=== PATIENT | female | born 1960 | race Caucasian/White ===

== ENCOUNTER → 2020-12-05 14:32 | Outpatient (BNVA) | payer OTHER, SELFPAY | PROVIDERS: Visit Provider Anesthesiology | DX: M46.1 Sacroiliitis, not elsewhere classified (principal); M79.7 Fibromyalgia; G89.4 Chronic pain syndrome; Z79.891 Long term (current) use of opiate analgesic | CPT/HCPCS: 99202 ==

== ENCOUNTER → 2020-12-26 10:38 | Outpatient (BNVA) | payer OTHER, SELFPAY | PROVIDERS: Visit Provider Anesthesiology | DX: M46.1 Sacroiliitis, not elsewhere classified (principal); M79.7 Fibromyalgia; G89.4 Chronic pain syndrome; Z79.891 Long term (current) use of opiate analgesic | CPT/HCPCS: 99212 ==

== ENCOUNTER → 2021-01-09 09:54 | Outpatient (BNVA) | payer OTHER, SELFPAY | PROVIDERS: Visit Provider Anesthesiology | DX: M46.1 Sacroiliitis, not elsewhere classified (principal); M79.7 Fibromyalgia; G89.4 Chronic pain syndrome; Z79.891 Long term (current) use of opiate analgesic | CPT/HCPCS: 99212 ==

== ENCOUNTER → 2021-02-06 09:10 | Outpatient (BNVA) | payer OTHER, SELFPAY | PROVIDERS: Visit Provider Anesthesiology | DX: M46.1 Sacroiliitis, not elsewhere classified (principal); M79.7 Fibromyalgia; G89.4 Chronic pain syndrome; Z79.891 Long term (current) use of opiate analgesic | CPT/HCPCS: 99212 ==

== ENCOUNTER 2021-02-20 13:00 | Outpatient (RCR) | payer OTHER, SELFPAY | END 2021-06-06 14:57 | disposition home or self-care (01) | LOC: HO.PTWFD 13:00 | PROVIDERS: Visit Provider Anesthesiology | DX: M46.1 Sacroiliitis, not elsewhere classified (principal) | CPT/HCPCS: 97110; 97140; 97161; 97535 ==

== ENCOUNTER → 2021-03-06 09:24 | Outpatient (BNVA) | payer OTHER, SELFPAY | PROVIDERS: Visit Provider Nurse Practitioner Family | DX: M46.1 Sacroiliitis, not elsewhere classified (principal); Z51.81 Encounter for therapeutic drug level monitoring; M79.7 Fibromyalgia; G89.4 Chronic pain syndrome; Z79.891 Long term (current) use of opiate analgesic | CPT/HCPCS: 99212 ==

== ENCOUNTER → 2021-04-09 09:33 | Outpatient (BNVA) | payer OTHER, SELFPAY | PROVIDERS: Visit Provider Anesthesiology | DX: M46.1 Sacroiliitis, not elsewhere classified (principal); M79.7 Fibromyalgia; G89.4 Chronic pain syndrome; Z79.891 Long term (current) use of opiate analgesic | CPT/HCPCS: 99212 ==

== ENCOUNTER → 2021-05-12 08:46 | Outpatient (BNVA) | payer OTHER, SELFPAY | PROVIDERS: Visit Provider Anesthesiology | DX: Z51.81 Encounter for therapeutic drug level monitoring (principal); M46.1 Sacroiliitis, not elsewhere classified; M79.7 Fibromyalgia; G89.4 Chronic pain syndrome; Z79.891 Long term (current) use of opiate analgesic | CPT/HCPCS: 99212 ==

== ENCOUNTER → 2021-06-23 15:37 | Outpatient (BNVA) | payer OTHER, SELFPAY | PROVIDERS: PCP Internal Medicine; Visit Provider Anesthesiology | DX: Z51.81 Encounter for therapeutic drug level monitoring (principal); M46.1 Sacroiliitis, not elsewhere classified; M79.7 Fibromyalgia; G89.4 Chronic pain syndrome; Z79.891 Long term (current) use of opiate analgesic | CPT/HCPCS: 99212 ==

== ENCOUNTER → 2021-07-28 15:20 | Outpatient (BNVA) | payer OTHER, SELFPAY | PROVIDERS: PCP Internal Medicine; Visit Provider Anesthesiology | DX: Z51.81 Encounter for therapeutic drug level monitoring (principal); M79.7 Fibromyalgia; Z79.891 Long term (current) use of opiate analgesic; G89.4 Chronic pain syndrome | CPT/HCPCS: 99212 ==

== ENCOUNTER → 2021-08-25 09:16 | Outpatient (BNVA) | payer OTHER, SELFPAY | PROVIDERS: PCP Internal Medicine; Visit Provider Anesthesiology | DX: Z51.81 Encounter for therapeutic drug level monitoring (principal); F11.20 Opioid dependence, uncomplicated | CPT/HCPCS: 99211 ==

== ENCOUNTER → 2021-09-22 10:11 | Outpatient (BNVA) | payer OTHER, SELFPAY | PROVIDERS: PCP Internal Medicine; Visit Provider Anesthesiology | DX: G89.4 Chronic pain syndrome (principal); M46.1 Sacroiliitis, not elsewhere classified; M79.7 Fibromyalgia; Z79.891 Long term (current) use of opiate analgesic | CPT/HCPCS: 99212 ==

== ENCOUNTER → 2021-10-20 10:16 | Outpatient (BNVA) | payer OTHER, SELFPAY | PROVIDERS: PCP Internal Medicine; Visit Provider Anesthesiology | DX: Z51.81 Encounter for therapeutic drug level monitoring (principal); F11.20 Opioid dependence, uncomplicated; M46.1 Sacroiliitis, not elsewhere classified; M79.7 Fibromyalgia; G89.4 Chronic pain syndrome; Z79.891 Long term (current) use of opiate analgesic | CPT/HCPCS: 99212 ==

== ENCOUNTER → 2021-11-17 09:50 | Outpatient (BNVA) | payer OTHER, SELFPAY | PROVIDERS: PCP Internal Medicine; Visit Provider Anesthesiology | DX: Z51.81 Encounter for therapeutic drug level monitoring (principal); F11.20 Opioid dependence, uncomplicated | CPT/HCPCS: 99211 ==

== ENCOUNTER → 2021-12-15 10:41 | Outpatient (BNVA) | payer OTHER, SELFPAY | PROVIDERS: PCP Internal Medicine; Visit Provider Anesthesiology | DX: Z79.899 Other long term (current) drug therapy (principal) ==

== ENCOUNTER → 2022-01-12 09:21 | Outpatient (BNVA) | payer OTHER, SELFPAY | PROVIDERS: PCP Internal Medicine; Visit Provider Anesthesiology | DX: Z79.891 Long term (current) use of opiate analgesic (principal) | CPT/HCPCS: 99211 ==

== ENCOUNTER → 2022-02-18 09:50 | Outpatient (BNVA) | payer OTHER, SELFPAY | PROVIDERS: PCP Internal Medicine; Visit Provider Anesthesiology | DX: Z51.81 Encounter for therapeutic drug level monitoring (principal); F11.20 Opioid dependence, uncomplicated; M46.1 Sacroiliitis, not elsewhere classified; M79.7 Fibromyalgia; G89.4 Chronic pain syndrome | CPT/HCPCS: 99212 ==

== ENCOUNTER → 2022-03-18 15:51 | Outpatient (BNVA) | payer OTHER, SELFPAY | PROVIDERS: PCP Internal Medicine; Visit Provider Nurse Practitioner Family | DX: Z79.891 Long term (current) use of opiate analgesic (principal) | CPT/HCPCS: 99211 ==

== ENCOUNTER → 2022-04-22 14:22 | Outpatient (BNVA) | payer OTHER, SELFPAY | PROVIDERS: PCP Internal Medicine; Visit Provider Anesthesiology | DX: Z79.891 Long term (current) use of opiate analgesic (principal) | CPT/HCPCS: 99211 ==

== ENCOUNTER → 2022-05-25 09:38 | Outpatient (BNVA) | payer OTHER, SELFPAY | PROVIDERS: PCP Internal Medicine; Visit Provider Anesthesiology | DX: Z51.81 Encounter for therapeutic drug level monitoring (principal); F11.20 Opioid dependence, uncomplicated; M46.1 Sacroiliitis, not elsewhere classified; M79.7 Fibromyalgia; G89.4 Chronic pain syndrome | CPT/HCPCS: 99212 ==

== ENCOUNTER → 2022-06-22 09:56 | Outpatient (BNVA) | payer OTHER, SELFPAY | PROVIDERS: PCP Internal Medicine; Visit Provider Anesthesiology | DX: Z51.81 Encounter for therapeutic drug level monitoring (principal); F11.20 Opioid dependence, uncomplicated | CPT/HCPCS: 99211 ==

== ENCOUNTER → 2022-07-23 09:43 | Outpatient (BNVA) | payer OTHER, SELFPAY | PROVIDERS: PCP Internal Medicine; Visit Provider Anesthesiology | DX: Z13.89 Encounter for screening for other disorder (principal) ==

== ENCOUNTER → 2022-08-24 10:43 | Outpatient (BNVA) | payer OTHER, SELFPAY | PROVIDERS: PCP Internal Medicine; Visit Provider Anesthesiology | DX: Z13.89 Encounter for screening for other disorder (principal) ==

== ENCOUNTER → 2022-09-23 09:31 | Outpatient (BNVA) | payer OTHER, SELFPAY | PROVIDERS: PCP Internal Medicine; Visit Provider Anesthesiology | DX: Z13.89 Encounter for screening for other disorder (principal) ==

== ENCOUNTER 2022-10-20 06:05 | Outpatient (REF) | payer OTHER, SELFPAY ==
--- NOTE | ~2022-10-20 | FL_ITS ---
EXAMINATION: XR FL WITH IMAGES CLINICAL INFORMATION: Chronic pain syndrome. COMPARISON: None available. TECHNIQUE: Fluoroscopy Supervised By: Shannon Barrett. Fluoroscopy Time: 0 minutes. Cumulative Dose: 1.6 mGy. DAP: 0.4 Gycm2. Images: 1. FINDINGS: Images demonstrate needle placement and contrast injection over the inferior right sacroiliac joint. FL/FL guidance in treatment room IMPRESSION: Fluoroscopy guidance for pain management procedure.
== END 2022-10-20 06:06 | disposition home or self-care (01) ==
LOC: CF 06:05
PROVIDERS: Visit Provider Anesthesiology
DX: M46.1 Sacroiliitis, not elsewhere classified (principal); G89.4 Chronic pain syndrome; M79.7 Fibromyalgia; Z79.891 Long term (current) use of opiate analgesic
CPT/HCPCS: 27096; J2795; Q9967

== ENCOUNTER → 2022-10-23 16:04 | Outpatient (BNVA) | payer OTHER, SELFPAY | PROVIDERS: PCP Internal Medicine; Visit Provider Nurse Practitioner Family | DX: Z13.89 Encounter for screening for other disorder (principal) ==

== ENCOUNTER → 2022-11-19 08:48 | Outpatient (BNVA) | payer OTHER, SELFPAY | PROVIDERS: PCP Internal Medicine; Visit Provider Anesthesiology | DX: M46.1 Sacroiliitis, not elsewhere classified (principal); G89.4 Chronic pain syndrome | CPT/HCPCS: 99212 ==

== ENCOUNTER 2022-12-22 06:09 | Outpatient (REF) | payer OTHER, SELFPAY ==
--- NOTE | ~2022-12-22 | FL_ITS ---
EXAMINATION: XR FLUOROSCOPY WITH IMAGES CLINICAL INFORMATION: Sacroiliitis COMPARISON: None available. TECHNIQUE: Fluoroscopy Supervised By: Dr. Stahl. Fluoroscopy Time: 0.1 minute. Cumulative Dose: 0.880 mGy. DAP: 0.0152 Gycm2. Images: 1. FINDINGS: There is a single digital image of right SI joint revealing contrast opacifying the soft tissues. FL/FL guidance in treatment room IMPRESSION: Fluoroscopy guidance was provided to referring physician for pain management.
== END 2022-12-22 06:10 | disposition home or self-care (01) ==
LOC: CF 06:09
PROVIDERS: Visit Provider Anesthesiology
DX: M46.1 Sacroiliitis, not elsewhere classified (principal); G89.4 Chronic pain syndrome
CPT/HCPCS: 27096; J3301

== ENCOUNTER → 2023-01-18 10:48 | Outpatient (BNVA) | payer OTHER, SELFPAY | PROVIDERS: PCP Internal Medicine; Visit Provider Anesthesiology | DX: G89.4 Chronic pain syndrome (principal); M46.1 Sacroiliitis, not elsewhere classified; Z98.890 Other specified postprocedural states | CPT/HCPCS: 99212 ==

== ENCOUNTER → 2023-02-15 09:55 | Outpatient (BNVA) | payer OTHER, SELFPAY | PROVIDERS: PCP Internal Medicine; Visit Provider Anesthesiology | DX: Z51.81 Encounter for therapeutic drug level monitoring (principal); F11.20 Opioid dependence, uncomplicated | CPT/HCPCS: 99211 ==

== ENCOUNTER 2023-03-15 11:25 | Outpatient (AMB) | payer OTHER, SELFPAY ==
--- NOTE | 2023-03-15 11:52 | A.OFFVIS_ITS ---
Intake Vital Signs 03/15/23 12:02 Height 5 ft 3 in Weight 111 lb 6 oz BMI 19.7 BP 126/80 Blood Pressure Location Rt brachial Position Sitting Respiration 16 Pulse 94 Pulse Source Pulse Oximeter Pulse Oximetry (%) 98 Oxygen Delivery Method Room Air Intake Visit Reasons: PILL COUNT Intake Note: patient comes in for pill count. Allergies aspirin Allergy (Verified 03/15/23 12:02) swelling,rash Sulfa (Sulfonamide Antibiotics) Allergy (Verified 03/15/23 12:02) oral swelling tetracycline Allergy (Verified 03/15/23 12:02) severe vomiting HPI HPI Comments History of Present Illness Details Essence is in for the follow-up and pain medication pill count. She reported today with 10 pills in her possession. She supposed to have only 6 pills in her possession. Her pill count is correct. She reports opioid medications help her to remain active perform better activities of daily living. She denies any side effects. She denies constipation. Her medication will be sent on 03/18/2023. Results of sacroiliac joint injection. She reported significant pain relief after the injection but only for several weeks. I discussed with her possibi jfy of treating her pain with sacroiliac joint fusion and sacroiliac joint innervation stimulation. Risks and benefits explained to the patient. She will be thinking about her options. She is a smoker and not ideal candidate for stabilization however she said that she can try to stop smoking On diagnostic sacroiliac joint injection she [id number] pain relief for 2 days with increased daily functioning, better mobility, sleep and social interactions. Patient reports after procedure she was able to complete all chores in her home and clean her house without significant discomfort in her right lower back, buttock and lateral hip. Patient reports no pain during those 2 days with sitting or driving. She reports pain in right SIJ area has returned on . Patient reports she was told during procedure that there was a significant gap in her right SIJ and has discussed SIJ fusion procedure . Patient reports she is working on decreasing amount of cigarettes per day but not ready to quit smoking at this time. We also discussed neuromodulation and therapeutic injections. Patient reports she prefers therapeutic injection at this time. Patient denies any recent cough, cold, infection, fever or other significant changes in medical history since last office visit. Past Procedures: 10/20/22: Right Diagnostic SIJ injection-100% pain relief for [address] Law 09/23/22: Essence is a pleasant 62 year old female who is here here for a pill count. She is supposed to have 36 pills in her possession and she has 38 pills. She denies side effects of the medications she denies constipations. She reports that opioid medications allow her to be more active, perform better activities of daily living, better social interactions. PRIOR: On the MRI of the cervical spine there is not much of a significant changes. On the MRI of the lumbar spine at L4-5 level there is left shifted disc bulge with clumping of the nerves especially exiting L5. On physical exam some symptoms of sacroiliac joint pathology on the right as well as potential piriformis pathology on the right. SI joint fusion was offered to the patient if she will stop smoking. Unfortunately she continues to smoke. Her PHQ score is equal to 4. Her opioid risk addiction score is equal to 7. Her total risk is equal to 11.mild risk for opioid addiction She complains on pain in the neck pain in bilateral lower extremities bilateral upper extremities pain in thoracic spine pain in the lumbar spine pain in the projection of right sacroiliac joint and pain in bilateral knees which limits her mobility prevents her from going up stairs in her house. She was diagnosed in the past with fibromyalgia neuropathy and arthritis she receives multiple medication to treat her pain some of them include Percocet 5 b.i.d. as well as gabapentin 300 b.i.d.. For many years we she was under care of neurologist who was treating her fibromyalgia prescribing her Percocet and continuing gabapentin. In the past she had extensive courses of physical therapy which did not give her any improvement of the pain she had chiropractic manipulations which helped her in some extent and she had massage therapy which was not effective for her. She had 10s unit she reports 10s unit application increase her pain. 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 (current) use of opiate analgesic Neuroma of foot Sacroiliitis Surgical History H/O tubal ligation History of lumpectomy of right breast History of nasal surgery Review of Systems Const All systems reviewed & are unremarkable except as noted in HPI and below ENT Reports Normal hearing present Neuro Reports Normal hearing present and Denies confusion Psych Denies confusion Physical Exam Vital Signs: Last Vital Signs Pulse 94 03/15/23 12:02 Resp 16 03/15/23 12:02 BP 126/80 03/15/23 12:02 Pulse Ox 98 03/15/23 12:02 Oxygen Delivery Method Room Air 03/15/23 12:02 BMI result Body Mass Index 19.7 Const General: cooperative, alert and awake; No confusion Orientation/consciousness: patient oriented x3 and No confusion Resp Effort & Inspection: able to speak in complete sentences, no audible wheezes and no cough Back/Spine/Pelvis Other: Positive Stinchfield, positive Steve, positive pelvic compression test. On the right. Neuro General: patient oriented x3 and No confusion Cranial nerves: Yes Normal hearing present Cognition (Neuro): normal cognition Psych Mental Status: mental status grossly normal Speech and movement: Clear speech present Affect: normal affect Attitude: cooperative Thought process: Normal thought process present Thought content: Normal thought content present and No Depressive thoughts present Insight: Good insight present (Psych) Judgement: Good judgement present (Psych) Assessment & Plan Assessment & Plan (1) Chronic pain syndrome: Code(s): G89.4 - Chronic pain syndrome (2) Sacroiliitis: Code(s): M46.1 - Sacroiliitis, not elsewhere classified Plan Patient is status post Right therapeutic SIJ injection which alleviated her pain for couple of weeks. 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 Diagnostic sacroiliac joint injection on the right was performed on on 10/20/22 with 100% pain relief for 2 days with increased daily functioning, better mobility, sleep and social interactions. We reviewed right SIJ fusion, neuromodulation with Stim trial, and SIJ RFA as well as therapeutic injections. Unfortunately, patient continues to smoke, attempts to decrease daily amount of cigarettes but not ready to stop smoking. She is here on pill count and her pill count is correct. I will renew her medications as below . We will see her in 1 month. She is working on quitting smoking. SI joint fusion and SI joint stimulation were discussed. Medications: Refilled oxycodone-acetaminophen 5-325 mg (Percocet) Partial Fill upon patient request. 1 tab PO BID PRN 60 tabs 0RF pain (scale score 7-10) 30 days Coding Level of Care Code Est Pt Level 3 (96176) Diagnoses Chronic pain syndrome G89.4 Sacroiliitis M46.1
[2023-03-15 12:02] VITALS: BP 126/80; PULSE 94; RESP 16; O2SAT 98; BMI 19.7
== END 2023-03-15 12:16 | disposition home or self-care (01) ==
PROVIDERS: PCP Internal Medicine; Visit Provider Anesthesiology
DX: G89.4 Chronic pain syndrome (principal); M46.1 Sacroiliitis, not elsewhere classified
CPT/HCPCS: 99213

== ENCOUNTER → 2023-03-15 11:25 | Outpatient (BNVA) | payer OTHER, SELFPAY | PROVIDERS: PCP Internal Medicine; Visit Provider Anesthesiology | DX: G89.4 Chronic pain syndrome (principal); M46.1 Sacroiliitis, not elsewhere classified; M79.7 Fibromyalgia; Z79.891 Long term (current) use of opiate analgesic | CPT/HCPCS: 99212 ==

== ENCOUNTER 2023-04-12 10:42 | Outpatient (AMB) | payer OTHER, SELFPAY ==
--- NOTE | 2023-04-12 10:59 | A.OFFVIS_ITS ---
Intake Vital Signs 04/12/23 11:03 Height 5 ft 3 in Weight 113 lb BMI 20.0 BP 120/84 Blood Pressure Location Rt brachial Position Sitting Respiration 16 Pulse 102 H Pulse Source Pulse Oximeter Pulse Oximetry (%) 96 Oxygen Delivery Method Room Air Intake Visit Reasons: Pill count Intake Note: patient comes in for pill count to oxycodone-acetaminophen. Allergies aspirin Allergy (Verified 04/12/23 11:04) swelling,rash Sulfa (Sulfonamide Antibiotics) Allergy (Verified 04/12/23 11:04) oral swelling tetracycline Allergy (Verified 04/12/23 11:04) severe vomiting HPI HPI Comments History of Present Illness Details Essence is in for the follow-up and pain medication pill count. She reported today with 16 pills in her possession. She supposed to have only 12 pills in her possession. Her pill count is correct. She reports opioid medications help her to remain active perform better activities of daily living. She denies any side effects. She denies constipation, she reports oatmeal helps her best with the constipation. On diagnostic sacroiliac joint injection she [id number] pain relief for 2 days with increased daily functioning, better mobility, sleep and social interactions. Patient reports after procedure she was able to complete all chores in her home and clean her house without significant discomfort in her right lower back, buttock and lateral hip. Patient reports no pain during those 2 days with sitting or driving. She reports pain in right SIJ area has returned on . Patient reports she was told during procedure that there was a significant gap in her right SIJ and has discussed SIJ fusion procedure . Patient reports she is working on decreasing amount of cigarettes per day but not ready to quit smoking at this time. We also discussed neuromodulation and therapeutic injections. Patient reports she prefers therapeutic injection at this time. Patient denies any recent cough, cold, infection, fever or other significant changes in medical history since last office visit. Past Procedures: 10/20/22: Right Diagnostic SIJ injection -100% pain relief for [address] Law 09/23/22: Essence is a pleasant 62 year old female who is here here for a pill count. She is supposed to have 36 pills in her possession and she has 38 pills. She denies side effects of the medications she denies constipations. She reports that opioid medications allow her to be more active, perform better activities of daily living, better social interactions. PRIOR: On the MRI of the cervical spine there is not much of a significant changes. On the MRI of the lumbar spine at L4-5 level there is left shifted disc bulge with clumping of the nerves especially exiting L5. On physical exam some symptoms of sacroiliac joint pathology on the right as well as potential piriformis pathology on the right. SI joint fusion was offered to the patient if she will stop smoking. Unfortunately she continues to smoke. Her PHQ score is equal to 4. Her opioid risk addiction score is equal to 7. Her total risk is equal to 11.mild risk for opioid addiction She complains on pain in the neck pain in bilateral lower extremities bilateral upper extremities pain in thoracic spine pain in the lumbar spine pain in the projection of right sacroiliac joint and pain in bilateral knees which limits her mobility prevents her from going up stairs in her house. She was diagnosed in the past with fibromyalgia neuropathy and arthritis she receives multiple medication to treat her pain some of them include Percocet 5 b.i.d. as well as gabapentin 300 b.i.d.. For many years we she was under care of neurologist who was treating her fibromyalgia prescribing her Percocet and continuing gabapentin. In the past she had extensive courses of physical therapy which did not give her any improvement of the pain she had chiropractic manipulations which helped her in some extent and she had massage therapy which was not effective for her. She had 10s unit she reports 10s unit application increase her pain. She was on Soma medication in the past [facility] Medical History Allergy to mold Chronic pain syndrome Environmental and seasonal allergies Fibromyalgia correction (current) use of opiate analgesic Neuroma of foot Sacroiliitis Surgical History H/O tubal ligation History of lumpectomy of right breast History of nasal surgery Review of Systems Const All systems reviewed & are unremarkable except as noted in HPI and below ENT Reports Normal hearing present Neuro Reports Normal hearing present and Denies confusion Psych Denies confusion Physical Exam Vital Signs: Last Vital Signs Pulse 102 H 04/12/23 11:03 Resp 16 04/12/23 11:03 BP 120/84 04/12/23 11:03 Pulse Ox 96 04/12/23 11:03 Oxygen Delivery Method Room Air 04/12/23 11:03 BMI result Body Mass Index 20.0 Const General: cooperative, alert and awake; No confusion Orientation/consciousness: patient oriented x3 and No confusion Resp Effort & Inspection: able to speak in complete sentences, no audible wheezes and no cough Back/Spine/Pelvis Other: Positive Stinchfield, positive Steve, positive pelvic compression test. On the right. Neuro General: patient oriented x3 and No confusion Cranial nerves: Yes Normal hearing present Cognition (Neuro): normal cognition Psych Mental Status: mental status grossly normal Speech and movement: Clear speech present Affect: normal affect Attitude: cooperative Thought process: Normal thought process present Thought content: Normal thought content present and No Depressive thoughts present Insight: Good insight present (Psych) Judgement: Good judgement present (Psych) Assessment & Plan Assessment & Plan (1) Chronic pain syndrome: Code(s): G89.4 - Chronic pain syndrome (2) Sacroiliitis: Code(s): M46.1 - Sacroiliitis, not elsewhere classified Plan Patient is status post Right therapeutic SIJ injection which alleviated her pain for couple of weeks. 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 Diagnostic sacroiliac joint injection on the right was performed on on 10/20/22 with 100% pain relief for 2 days with increased daily functioning, better mobility, sleep and social interactions. In the past right SIJ fusion, neuromodulation with Stim trial, and SIJ RFA as well as therapeutic injections was offered to the patient. Unfortunately, patient continues to smoke, attempts to decrease daily amount of cigarettes but not ready to stop smoking. She is here on pill count and her pill count is correct. She is compliant with her opioid regimen. We will see her in 1 month. She is working on quitting smoking. SI joint fusion and SI joint stimulation were discussed. Medications: Refilled oxycodone-acetaminophen 5-325 mg (Percocet) Partial Fill upon patient request. 1 tab PO BID PRN 60 tabs 0RF pain (scale score 7-10) 30 days Coding Level of Care Code Est Pt Level 3 (29371) Diagnoses Chronic pain syndrome G89.4 Sacroiliitis M46.1
[2023-04-12 11:03] VITALS: BP 120/84; PULSE 102; RESP 16; O2SAT 96
== END 2023-04-12 11:26 | disposition home or self-care (01) ==
PROVIDERS: PCP Internal Medicine; Visit Provider Anesthesiology
DX: G89.4 Chronic pain syndrome (principal); M46.1 Sacroiliitis, not elsewhere classified
CPT/HCPCS: 99213

== ENCOUNTER → 2023-04-12 10:42 | Outpatient (BNVA) | payer OTHER, SELFPAY | PROVIDERS: PCP Internal Medicine; Visit Provider Anesthesiology | DX: Z51.81 Encounter for therapeutic drug level monitoring (principal); F10.20 Alcohol dependence, uncomplicated; F11.20 Opioid dependence, uncomplicated; M46.1 Sacroiliitis, not elsewhere classified; G89.4 Chronic pain syndrome | CPT/HCPCS: 99212 ==

== ENCOUNTER 2023-05-10 09:39 | Outpatient (AMB) | payer OTHER, SELFPAY ==
--- NOTE | 2023-05-10 09:57 | MHC.OFFVIS ---
Intake Vital Signs 05/10/23 09:59 Height 5 ft 3 in Weight 111 lb 4 oz BMI 19.7 BP 136/88 Blood Pressure Location Rt brachial Position Sitting Respiration 16 Pulse 100 Pulse Source Pulse Oximeter Pulse Oximetry (%) 95 Oxygen Delivery Method Room Air Intake Visit Reasons: PILL COUNT Intake Note: Patient comes in for pill count to oxycodone-acetaminophen tablets. Allergies aspirin Allergy (Verified 05/10/23 09:59) swelling,rash Sulfa (Sulfonamide Antibiotics) Allergy (Verified 05/10/23 09:59) oral swelling tetracycline Allergy (Verified 05/10/23 09:59) severe vomiting HPI HPI Comments History of Present Illness Details Essence is in for the follow-up and pain medication pill count. She reported today with 21 pills in her possession. She supposed to have only 18 pills in her possession. Her pill count is correct. She reports opioid medications help her to remain active perform better activities of daily living. She denies any side effects. She denies constipation, she reports oatmeal helps her best with the constipation. On diagnostic sacroiliac joint injection she [id number] pain relief for 2 days with increased daily functioning, better mobility, sleep and social interactions. Patient reports after procedure she was able to complete all chores in her home and clean her house without significant discomfort in her right lower back, buttock and lateral hip. Patient reports no pain during those 2 days with sitting or driving. She reports pain in right SIJ area has returned on . Patient reports she was told during procedure that there was a significant gap in her right SIJ and has discussed SIJ fusion procedure . Patient continues to smoke and upper candidate for SI joint stabilization and fusion. However I offered her pain S stim wave for the sacroiliac joints on the right, she needs to go for psychological evaluation. SI joint stimulation was explained to her today Past Procedures: 10/20/22: Right Diagnostic SIJ injection-100% pain relief for 2 days. Prior: On the MRI of the cervical spine there is not much of a significant changes. On the MRI of the lumbar spine at L4-5 level there is left shifted disc bulge with clumping of the nerves especially exiting L5. On physical exam some symptoms of sacroiliac joint pathology on the right as well as potential piriformis pathology on the right. SI joint fusion was offered to the patient if she will stop smoking. Unfortunately she continues to smoke. Her PHQ score is equal to 4. Her opioid risk addiction score is equal to 7. Her total risk is equal to 11.mild risk for opioid addiction She complains on pain in the neck pain in bilateral lower extremities bilateral upper extremities pain in thoracic spine pain in the lumbar spine pain in the projection of right sacroiliac joint and pain in bilateral knees which limits her mobility prevents her from going up stairs in her house. She was diagnosed in the past with fibromyalgia neuropathy and arthritis she receives multiple medication to treat her pain some of them include Percocet 5 b.i.d. as well as gabapentin 300 b.i.d.. For many years we she was under care of neurologist who was treating her fibromyalgia prescribing her Percocet and continuing gabapentin. In the past she had extensive courses of physical therapy which did not give her any improvement of the pain she had chiropractic manipulations which helped her in some extent and she had massage therapy which was not effective for her. She had 10s unit she reports 10s unit application increase her pain. 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 Neuroma of foot Sacroiliitis Surgical History H/O tubal ligation History of lumpectomy of right breast History of nasal surgery Review of Systems Const All systems reviewed & are unremarkable except as noted in HPI and below ENT Reports Normal hearing present Neuro Reports Normal hearing present and Denies confusion Psych Denies confusion Physical Exam Vital Signs: Last Vital Signs Pulse 100 05/10/23 09:59 Resp 16 05/10/23 09:59 BP 136/88 05/10/23 09:59 Pulse Ox 95 05/10/23 09:59 Oxygen Delivery Method Room Air 05/10/23 09:59 BMI result Body Mass Index 19.7 Const General: cooperative, alert and awake; No confusion Orientation/consciousness: patient oriented x3 and No confusion Resp Effort & Inspection: able to speak in complete sentences, no audible wheezes and no cough Back/Spine/Pelvis Other: Positive Stinchfield, positive Steve, positive pelvic compression test. On the right. Neuro General: patient oriented x3 and No confusion Cranial nerves: Yes Normal hearing present Cognition (Neuro): normal cognition Psych Mental Status: mental status grossly normal Speech and movement: Clear speech present Affect: normal affect Attitude: cooperative Thought process: Normal thought process present Thought content: Normal thought content present and No Depressive thoughts present Insight: Good insight present (Psych) Judgement: Good judgement present (Psych) Assessment & Plan Assessment & Plan (1) Chronic pain syndrome: Code(s): G89.4 - Chronic pain syndrome (2) Sacroiliitis: Code(s): M46.1 - Sacroiliitis, not elsewhere classified Plan Patient is status post Right therapeutic SIJ injection which alleviated her pain for couple of weeks. 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 Diagnostic sacroiliac joint injection on the right was performed on on 10/20/22 with 100% pain relief for 2 days with increased daily functioning, better mobility, sleep and social interactions. In the past right SIJ fusion, neuromodulation with Stim trial, and SIJ RFA as well as therapeutic injections was offered to the patient. Unfortunately, patient continues to smoke, attempts to decrease daily amount of cigarettes but not ready to stop smoking. She is here on pill count and her pill count is correct. She is compliant with her opioid regimen. I will see her in 1 month. She is still smoking significant amount of cigarettes. SI joint fusion therefore is a poor option for her. I offered her PNS stimwave/curonics, she agreed to go for psychological evaluation. She lives alone and the definitive procedure may be delayed until the next spring when snow is no longer needed to be cleaned out however we would have to start psych eval now in we may even go for trial to see if this will help her. The trial will be right SI joint innervation stimulation. I will renew her opioid medications today there due on 05/19/2023. Next appointment in 1 month. Medications: Refilled oxycodone-acetaminophen 5-325 mg (Percocet) Partial Fill upon patient request. 1 tab PO BID PRN 60 tabs 0RF pain (scale score 7-10) 30 days Coding Level of Care Code Est Pt Level 4 (22138) Diagnoses Chronic pain syndrome G89.4 Sacroiliitis M46.1
[2023-05-10 09:59] VITALS: BP 136/88; PULSE 100; RESP 16; O2SAT 95; BMI 19.7
== END 2023-05-10 10:11 | disposition home or self-care (01) ==
PROVIDERS: PCP Internal Medicine; Visit Provider Anesthesiology
DX: G89.4 Chronic pain syndrome (principal); M46.1 Sacroiliitis, not elsewhere classified; Z79.891 Long term (current) use of opiate analgesic
CPT/HCPCS: 99214

== ENCOUNTER → 2023-05-10 09:39 | Outpatient (BNVA) | payer OTHER, SELFPAY | PROVIDERS: PCP Internal Medicine; Visit Provider Anesthesiology | DX: M46.1 Sacroiliitis, not elsewhere classified (principal); G89.4 Chronic pain syndrome | CPT/HCPCS: 99212 ==

== ENCOUNTER → 2023-06-07 09:41 | Outpatient (BNVA) | payer OTHER, SELFPAY | PROVIDERS: PCP Internal Medicine; Visit Provider Anesthesiology ==

== ENCOUNTER 2023-07-05 09:44 | Outpatient (AMB) | payer OTHER, SELFPAY ==
--- NOTE | 2023-07-05 09:53 | A.OFFVIS_ITS ---
Intake Vital Signs 07/05/23 10:09 Height 5 ft 3 in Weight 106 lb 6 oz BMI 18.8 BP 140/78 H Blood Pressure Location Lt brachial Position Sitting Respiration 14 Pulse 69 Pulse Source Pulse Oximeter Pulse Oximetry (%) 96 Oxygen Delivery Method Room Air Intake Visit Reasons: Medication Count/confirmed Intake Note: Patient comes in for pill count to oxycodone -acetaminophen 5mg-325 mg tablets. Allergies aspirin Allergy (Verified 07/05/23 10:10) swelling,rash Sulfa (Sulfonamide Antibiotics) Allergy (Verified 07/05/23 10:10) oral swelling tetracycline Allergy (Verified 07/05/23 10:10) severe vomiting HPI HPI Comments History of Present Illness Details Essence is in for the follow-up and pain medication pill count. She reported today with 36 pills in her possession. She supposed to have only 32 pills in her possession. Her pill count is correct. She reports opioid medications help her to remain active perform better activities of daily living. She denies any side effects. She reports diarrhea today at its probably some sort of acute her hands. On diagnostic sacroiliac joint injection she [id number] pain relief for 2 days with increased daily functioning, better mobility, sleep and social interactions. Patient reports after procedure she was able to complete all chores in her home and clean her house without significant discomfort in her right lower back, buttock and lateral hip. Patient reports no pain during those 2 days with sitting or driving. She reports pain in right SIJ area has returned on . Patient reports she was told during procedure that there was a significant gap in her right SIJ and has discussed SIJ fusion procedure . Patient continues to smoke and upper candidate for SI joint stabilization and fusion. However I offered her pain S stim wave for the sacroiliac joints on the right, she needs to go for psychological evaluation. SI joint stimulation was explained to her today Past Procedures: 10/20/22: Right Diagnostic SIJ injection -100% pain relief for 2 days. Prior: On the MRI of the cervical spine there is not much of a significant changes. On the MRI of the lumbar spine at L4-5 level there is left shifted disc bulge with clumping of the nerves especially exiting L5. On physical exam some symptoms of sacroiliac joint pathology on the right as well as potential piriformis pathology on the right. SI joint fusion was offered to the patient if she will stop smoking. Unfortunately she continues to smoke. Her PHQ score is equal to 4. Her opioid risk addiction score is equal to 7. Her total risk is equal to 11.mild risk for opioid addiction She complains on pain in the neck pain in bilateral lower extremities bilateral upper extremities pain in thoracic spine pain in the lumbar spine pain in the projection of right sacroiliac joint and pain in bilateral knees which limits her mobility prevents her from going up stairs in her house. She was diagnosed in the past with fibromyalgia neuropathy and arthritis she receives multiple medication to treat her pain some of them include Percocet 5 b.i.d. as well as gabapentin 300 b.i.d.. For many years we she was under care of neurologist who was treating her fibromyalgia prescribing her Percocet and continuing gabapentin. In the past she had extensive courses of physical therapy which did not give her any improvement of the pain she had chiropractic manipulations which helped her in some extent and she had massage therapy which was not effective for her. She had 10s unit she reports 10s unit application increase her pain. She was on Soma medication in the past [facility] Medical History Allergy to mold Chronic pain syndrome Environmental and seasonal allergies Fibromyalgia care home (current) use of opiate analgesic Neuroma of foot Sacroiliitis Surgical History H/O tubal ligation History of lumpectomy of right breast History of nasal surgery Review of Systems Const All systems reviewed & are unremarkable except as noted in HPI and below ENT Reports Normal hearing present Neuro Reports Normal hearing present and Denies confusion Psych Denies confusion Physical Exam Const General: cooperative, alert and awake; No confusion Orientation/consciousness: patient oriented x3 and No confusion Resp Effort & Inspection: able to speak in complete sentences, no audible wheezes and no cough Back/Spine/Pelvis Other: Positive Stinchfield, positive Steve, positive pelvic compression test. On the right. Neuro General: patient oriented x3 and No confusion Cranial nerves: Yes Normal hearing present Cognition (Neuro): normal cognition Psych Mental Status: mental status grossly normal Speech and movement: Clear speech present Affect: normal affect Attitude: cooperative Thought process: Normal thought process present Thought content: Normal thought content present and No Depressive thoughts present Insight: Good insight present (Psych) Judgement: Good judgement present (Psych) Assessment & Plan Assessment & Plan (1) Chronic pain syndrome: Code(s): G89.4 - Chronic pain syndrome (2) Sacroiliitis: Code(s): M46.1 - Sacroiliitis, not elsewhere classified Plan Patient is status post Right therapeutic SIJ injection which alleviated her pain for couple of weeks. 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 Diagnostic sacroiliac joint injection on the right was performed on on 10/20/22 with 100% pain relief for 2 days with increased daily functioning, better mobility, sleep and social interactions. In the past right SIJ fusion, neuromodulation with Stim trial, and SIJ RFA as well as therapeutic injections was offered to the patient. Unfortunately, patient continues to smoke, attempts to decrease daily amount of cigarettes but not re leslie to stop smoking. I will see her in 1 month. She is still smoking significant amount of cigarettes. SI joint fusion therefore is a poor option for her. I offered her PNS stimwave/curonics, she agreed to go for psychological evaluation. She lives alone and the definitive procedure may be delayed until the next spring when snow is no longer needed to be cleaned out however we would have to start psych eval now in we may even go for trial to see if this will help her. The trial will be right SI joint innervation stimulation. I will renew her opioid medications today there due on 07/20/2023. Next appointment in 1 month. Medications: Refilled oxycodone-acetaminophen 5-325 mg (Percocet) Partial Fill upon patient request. 1 tab PO BID 30 days PRN 60 tabs 0RF pain (scale score 7-10) Coding Level of Care Code Est Pt Level 3 (45297) Diagnoses Chronic pain syndrome G89.4 Sacroiliitis M46.1
[2023-07-05 10:09] VITALS: BP 140/78; PULSE 69; RESP 14; O2SAT 96; BMI 18.8
== END 2023-07-05 10:10 | disposition home or self-care (01) ==
PROVIDERS: PCP Internal Medicine; Visit Provider Anesthesiology
DX: G89.4 Chronic pain syndrome (principal); M46.1 Sacroiliitis, not elsewhere classified; Z79.891 Long term (current) use of opiate analgesic
CPT/HCPCS: 99213

== ENCOUNTER → 2023-07-05 09:44 | Outpatient (BNVA) | payer OTHER, SELFPAY | PROVIDERS: PCP Internal Medicine; Visit Provider Anesthesiology | DX: Z51.81 Encounter for therapeutic drug level monitoring (principal); F11.20 Opioid dependence, uncomplicated; M46.1 Sacroiliitis, not elsewhere classified; G89.4 Chronic pain syndrome | CPT/HCPCS: 99212 ==

== ENCOUNTER 2023-08-04 09:45 | Outpatient (AMB) | payer OTHER, SELFPAY ==
--- NOTE | 2023-08-04 09:53 | A.OFFVIS_ITS ---
Intake Vital Signs 08/04/23 10:09 Height 5 ft 3 in Weight 107 lb 8 oz BMI 19.0 BP 156/80 H Blood Pressure Location Lt brachial Position Sitting Respiration 16 Pulse 95 Pulse Source Pulse Oximeter Pulse Oximetry (%) 99 Oxygen Delivery Method Room Air Intake Visit Reasons: Medication Count/lvm Intake Note: Patient comes in for pill count to oxycodone-acetaminophen 5mg - 325mg tablets. Allergies aspirin Allergy (Verified 08/04/23 10:13) swelling,rash Sulfa (Sulfonamide Antibiotics) Allergy (Verified 08/04/23 10:13) oral swelling tetracycline Allergy (Verified 08/04/23 10:13) severe vomiting HPI HPI Comments History of Present Illness Details Essence is in for the follow-up and pain medication pill count. She reported today with 35 pills in her possession. She supposed to have only 30 pills in her possession. Her pill count is correct. She reports opioid medications help her to remain active perform better activities of daily living. She denies any side effects. She did not start her psychological evaluation yet. We will be waiting until the end of the winter. The rest of the plans are as above. Prior: On diagnostic sacroiliac joint injection she [id number] pain relief for 2 days with increased daily functioning, better mobility, sleep and social interactions. Patient reports after procedure she was able to complete all chores in her home and clean her house without significant discomfort in her right lower back, buttock and lateral hip. Patient reports no pain during those 2 days with sitting or driving. She reports pain in right SIJ area has returned on . Patient reports she was told during procedure that there was a significant gap in her right SIJ and has discussed SIJ fusion procedure . Yuly akbar continues to smoke and upper candidate for SI joint stabilization and fusion. However I offered her pain S stim wave for the sacroiliac joints on the right, she needs to go for psychological evaluation. SI joint stimulation was explained to her today Past Procedures: 10/20/22: Right Diagnostic SIJ injection -100% pain relief for 2 days. Prior: On the MRI of the cervical spine there is not much of a significant changes. On the MRI of the lumbar spine at L4-5 level there is left shifted disc bulge with clumping of the nerves especially exiting L5. On physical exam some symptoms of sacroiliac joint pathology on the right as well as potential piriformis pathology on the right. SI joint fusion was offered to the patient if she will stop smoking. Unfortunately she continues to smoke. Her PHQ score is equal to 4. Her opioid risk addiction score is equal to 7. Her total risk is equal to 11.mild risk for opioid addiction She complains on pain in the neck pain in bilateral lower extremities bilateral upper extremities pain in thoracic spine pain in the lumbar spine pain in the projection of right sacroiliac joint and pain in bilateral knees which limits her mobility prevents her from going up stairs in her house. She was diagnosed in the past with fibromyalgia neuropathy and arthritis she receives multiple medication to treat her pain some of them include Percocet 5 b.i.d. as well as gabapentin 300 b.i.d.. For many years we she was under care of neurologist who was treating her fibromyalgia prescribing her Percocet and continuing gabapentin. In the past she had extensive courses of physical therapy which did not give her any improvement of the pain she had chiropractic manipulations which helped her in some extent and she had massage therapy which was not effective for her. She had 10s unit she reports 10s unit application increase her pain. She was on Soma medication in the past [facility] Medical History Allergy to mold Chronic pain syndrome Environmental and seasonal allergies Fibromyalgia emt intermediate (current) use of opiate analgesic Neuroma of foot Sacroiliitis Surgical History H/O tubal ligation History of lumpectomy of right breast History of nasal surgery Review of Systems Const All systems reviewed & are unremarkable except as noted in HPI and below ENT Reports Normal hearing present Neuro Reports Normal hearing present and Denies confusion Psych Denies confusion Physical Exam Const General: cooperative, alert and awake; No confusion Orientation/consciousness: patient oriented x3 and No confusion Resp Effort & Inspection: able to speak in complete sentences, no audible wheezes and no cough Back/Spine/Pelvis Other: Positive Stinchfield, positive Steve, positive pelvic compression test. On the right. Neuro General: patient oriented x3 and No confusion Cranial nerves: Yes Normal hearing present Cognition (Neuro): normal cognition Psych Mental Status: mental status grossly normal Speech and movement: Clear speech present Affect: normal affect Attitude: cooperative Thought process: Normal thought process present Thought content: Normal thought content present and No Depressive thoughts present Insight: Good insight present (Psych) Judgement: Good judgement present (Psych) Assessment & Plan Assessment & Plan (1) Chronic pain syndrome: Code(s): G89.4 - Chronic pain syndrome (2) Sacroiliitis: Code(s): M46.1 - Sacroiliitis, not elsewhere classified Plan Patient is status post Right therapeutic SIJ injection which alleviated her pain for couple of weeks. 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 Diagnostic sacroiliac joint injection on the right was performed on on 10/20/22 with 100% pain relief for 2 days with increased daily functioning, better mobility, sleep and social interactions. In the past right SIJ fusion, neuromodulation with Stim trial, and SIJ RFA as well as therapeutic injections was offered to the patient. Unfortunately, patient continues to smoke, attempts to decrease daily amount of cigarettes but not ready to stop smoking. I will see her in 1 month. She is still smoking significant amount of cigarettes. For PNS stimwave/curonics, she agreed to go for psychological evaluation. She lives alone and the definitive procedure may be delayed until Spring when snow is no longer needed to be cleaned out . She will ask a colleague psychologist for a clearance for the trial instead of waiting. The trial will be right SI joint innervation stimulation. I will renew her opioid medications today there due on 08/19/2022 Next appointment in 1 month. Medications: Refilled oxycodone-acetaminophen 5-325 mg (Percocet) Partial Fill upon patient request. 1 tab PO BID PRN 60 tabs 0RF pain (scale score 7-10) 30 days Coding Level of Care Code Est Pt Level 3 (93236) Diagnoses Chronic pain syndrome G89.4 Sacroiliitis M46.1
[2023-08-04 10:09] VITALS: BP 156/80; PULSE 95; RESP 16; O2SAT 99; BMI 19.0
== END 2023-08-04 10:14 | disposition home or self-care (01) ==
PROVIDERS: PCP Internal Medicine; Visit Provider Anesthesiology
DX: G89.4 Chronic pain syndrome (principal); M46.1 Sacroiliitis, not elsewhere classified
CPT/HCPCS: 99213

== ENCOUNTER → 2023-08-04 09:45 | Outpatient (BNVA) | payer OTHER, SELFPAY | PROVIDERS: PCP Internal Medicine; Visit Provider Anesthesiology | DX: Z51.81 Encounter for therapeutic drug level monitoring (principal); F11.20 Opioid dependence, uncomplicated; M46.1 Sacroiliitis, not elsewhere classified; G89.4 Chronic pain syndrome | CPT/HCPCS: 99212 ==

== ENCOUNTER 2023-09-01 09:44 | Outpatient (AMB) | payer OTHER, SELFPAY ==
--- NOTE | 2023-09-01 09:46 | MHC.OFFVIS ---
Intake Vital Signs 09/01/23 10:02 Height 5 ft 3 in Weight 107 lb BMI 19.0 BP 142/77 H Blood Pressure Location Lt brachial Position Sitting Respiration 12 Pulse 71 Pulse Source Pulse Oximeter Pulse Oximetry (%) 97 Oxygen Delivery Method Room Air Intake Visit Reasons: Medication Count/lvm Intake Note: Patient comes in for pill count to Oxycodone- acetaminophen 5mg-325 mg tablets. Reports pain 6/10. Allergies aspirin Allergy (Verified 08/04/23 10:13) swelling,rash Sulfa (Sulfonamide Antibiotics) Allergy (Verified 08/04/23 10:13) oral swelling tetracycline Allergy (Verified 08/04/23 10:13) severe vomiting HPI HPI Comments History of Present Illness Details Essence is in for the follow-up and pain medication pill count. She reported today with 36 pills in her possession. She supposed to have only 34 pills in her possession. Her pill count is correct. She reports opioid medications help her to remain active perform better activities of daily living. She denies any side effects. She reports today that she does not have Narcan at home. I told her that we will prescribe her Narcan today. She reports her pain level today slightly elevated to 6/10. She reports that overall she is comfortable. She did not start her psychological evaluation yet. We will be waiting until the end of the winter. We will be planning SI joint innervation stimulation for her at that time. Prior: On diagnostic sacroiliac joint injection she % pain relief for 2 days with increased daily functioning, better mobility, sleep and social interactions. Patient reports after procedure she was able to complete all chores in her home and clean her house without significant discomfort in her right lower back, buttock and lateral hip. Patient reports no pain during those 2 days with sitting or driving. She reports pain in right SIJ area has returned on . Patient reports she was told during procedure that there was a significant gap in her right SIJ and has discussed SIJ fusion procedure . Patient continues to smoke and upper candidate for SI joint stabilization and fusion. However I offered her pain S stim wave for the sacroiliac joints on the right, she needs to go for psychological evaluation. SI joint stimulation was explained to her today Past Procedures: 10/20/22: Right Diagnostic SIJ injection-100% pain relief for 2 days. Prior: On the MRI of the cervical spine there is not much of a significant changes. On the MRI of the lumbar spine at L4-5 level there is left shifted disc bulge with clumping of the nerves especially exiting L5. On physical exam some symptoms of sacroiliac joint pathology on the right as well as potential piriformis pathology on the right. SI joint fusion was offered to the patient if she will stop smoking. Unfortunately she continues to smoke. Her PHQ score is equal to 4. Her opioid risk addiction score is equal to 7. Her total risk is equal to 11.mild risk for opioid addiction She complains on pain in the neck pain in bilateral lower extremities bilateral upper extremities pain in thoracic spine pain in the lumbar spine pain in the projection of right sacroiliac joint and pain in bilateral knees which limits her mobility prevents her from going up stairs in her house. She was diagnosed in the past with fibromyalgia neuropathy and arthritis she receives multiple medication to treat her pain some of them include Percocet 5 b.i.d. as well as gabapentin 300 b.i.d.. For many years we she was under care of neurologist who was treating her fibromyalgia prescribing her Percocet and continuing gabapentin. In the past she had extensive courses of physical therapy which did not give her any improvement of the pain she had chiropractic manipulations which helped her in some extent and she had massage therapy which was not effective for her. She had 10s unit she reports 10s unit application increase her pain. She was on Soma medication in the past [facility] Medical History Allergy to mold Chronic pain syndrome Environmental and seasonal allergies Fibromyalgia long-term (current) use of opiate analgesic Neuroma of foot Sacroiliitis Surgical History H/O tubal ligation History of lumpectomy of right breast History of nasal surgery Review of Systems Const All systems reviewed & are unremarkable except as noted in HPI and below ENT Reports Normal hearing present Neuro Reports Normal hearing present and Denies confusion Psych Denies confusion Physical Exam Vital Signs: Last Vital Signs Pulse 71 09/01/23 10:02 Resp 12 09/01/23 10:02 BP 142/77 H 09/01/23 10:02 Pulse Ox 97 09/01/23 10:02 Oxygen Delivery Method Room Air 09/01/23 10:02 BMI result Body Mass Index 19.0 Const General: cooperative, alert and awake; No confusion Orientation/consciousness: patient oriented x3 and No confusion Resp Effort & Inspection: able to speak in complete sentences, no audible wheezes and no cough Back/Spine/Pelvis Other: Positive Stinchfield, positive Steve, positive pelvic compression test. On the right. Neuro General: patient oriented x3 and No confusion Cranial nerves: Yes Normal hearing present Cognition (Neuro): normal cognition Psych Mental Status: mental status grossly normal Speech and movement: Clear speech present Affect: normal affect Attitude: cooperative Thought process: Normal thought process present Thought content: Normal thought content present and No Depressive thoughts present Insight: Good insight present (Psych) Judgement: Good judgement present (Psych) Assessment & Plan Assessment & Plan (1) Chronic pain syndrome: Code(s): G89.4 - Chronic pain syndrome (2) Sacroiliitis: Code(s): M46.1 - Sacroiliitis, not elsewhere classified Plan Patient is status post Right therapeutic SIJ injection which alleviated her pain for couple of weeks. 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 Diagnostic sacroiliac joint injection on the right was performed on on 10/20/22 with 100% pain relief for 2 days with increased daily functioning, better mobility, sleep and social interactions. In the past right SIJ fusion, neuromodulation with Stim trial, and SIJ RFA as well as therapeutic injections was offered to the patient. Unfortunately, patient continues to smoke, attempts to decrease daily amount of cigarettes but not ready to stop smoking. I will see her in 1 month. She is still smoking significant amount of cigarettes. For PNS stimwave/curonics, she agreed to go for psychological evaluation. She will do it in the spring time. She lives alone however nevertheless I will prescribe her Narcan to keep at home for accidental overdose. She lives alone and the definitive procedure may be delayed until Spring when snow is no longer needed to be cleaned out . She will ask a colleague psychologist for a clearance for the trial instead of waiting. The trial will be right SI joint innervation stimulation. I will renew her opioid medications today there due on 09/18/2023 Next appointment in 1 month. Medications: New naloxone 4 mg/actuation spray 1 dose into ONE nostril; alternate nostrils w each dose until help arrives 4 mg intranasal Q3M PRN 2 ea 1RF opioid overdose 1 day Refilled oxycodone-acetaminophen 5-325 mg (Percocet) Partial Fill upon patient request. 1 tab PO BID 30 days PRN 60 tabs 0RF pain (scale score 7-10) Coding Level of Care Code Est Pt Level 3 (79008) Diagnoses Chronic pain syndrome G89.4 Sacroiliitis M46.1
[2023-09-01 10:02] VITALS: BP 142/77; PULSE 71; RESP 12; O2SAT 97; BMI 19.0
== END 2023-09-01 10:18 | disposition home or self-care (01) ==
PROVIDERS: PCP Internal Medicine; Visit Provider Anesthesiology
DX: G89.4 Chronic pain syndrome (principal); M46.1 Sacroiliitis, not elsewhere classified; Z79.891 Long term (current) use of opiate analgesic
CPT/HCPCS: 99213

== ENCOUNTER → 2023-09-01 09:44 | Outpatient (BNVA) | payer OTHER, SELFPAY | PROVIDERS: PCP Internal Medicine; Visit Provider Anesthesiology | DX: Z51.81 Encounter for therapeutic drug level monitoring (principal); M46.1 Sacroiliitis, not elsewhere classified; G89.4 Chronic pain syndrome | CPT/HCPCS: 99212 ==

== ENCOUNTER 2023-09-29 10:02 | Outpatient (AMB) | payer OTHER, SELFPAY ==
--- NOTE | 2023-09-29 10:12 | A.OFFVIS_ITS ---
Intake Vital Signs 09/29/23 10:23 Height 5 ft 3 in Weight 107 lb BMI 19.0 BP 144/80 H Blood Pressure Location Lt brachial Position Sitting Respiration 12 Pulse 96 Pulse Source Pulse Oximeter Pulse Oximetry (%) 99 Oxygen Delivery Method Room Air Intake Visit Reasons: PILL COUNT/CONFIRM Intake Note: Patient comes in for pill count. Reports pain 10/02. Allergies aspirin Allergy (Verified 09/29/23 10:23) swelling,rash Sulfa (Sulfonamide Antibiotics) Allergy (Verified 09/29/23 10:23) oral swelling tetracycline Allergy (Verified 09/29/23 10:23) severe vomiting HPI HPI Comments History of Present Illness Details Essence is in for the follow-up and pain medication pill count. She reported today with 40 pills in her possession. She supposed to have 40 pills in her possession. Her pill count is correct. She reports opioid medications help her to remain active perform better activities of daily living. She denies any side effects. She is prescribed gabapentin by another provider. She reports gabapentin also helps her pain. She did not start her psychological evaluation yet. We will be waiting until the end of the winter. We will be planning SI joint innervation stimulation for her at that time. Prior: On diagnostic sacroiliac joint injection she [id number]% pain relief for 2 days with increased daily functioning, better mobility, sleep and social interactions. Patient reports after procedure she was able to complete all chores in her home and clean her house without significant discomfort in her right lower back, buttock and lateral hip. Patient reports no pain during those 2 days with sitting or driving. She reports pain in right SIJ area has returned on . Patient reports she was told during procedure that there was a significant gap in her right SIJ and has discussed SIJ fusion procedure . Patient continues to smoke and upper candidate for SI joint stabilization and fusion. However I offered her pain S stim wave for the sacroiliac joints on the right, she needs to go for psychological evaluation. SI joint stimulation was explained to her. Past Procedures: 10/20/22: Right Diagnostic SIJ injection -100% pain relief for 2 days. Prior: On the MRI of the cervical spine there is not much of a significant changes. On the MRI of the lumbar spine at L4-5 level there is left shifted disc bulge with clumping of the nerves especially exiting L5. On physical exam some symptoms of sacroiliac joint pathology on the right as well as potential piriformis pathology on the right. SI joint fusion was offered to the patient if she will stop smoking. Unfortunately she continues to smoke. Her PHQ score is equal to 4. Her opioid risk addiction score is equal to 7. Her total risk is equal to 11.mild risk for opioid addiction She complains on pain in the neck pain in bilateral lower extremities bilateral upper extremities pain in thoracic spine pain in the lumbar spine pain in the projection of right sacroiliac joint and pain in bilateral knees which limits her mobility prevents her from going up stairs in her house. She was diagnosed in the past with fibromyalgia neuropathy and arthritis she receives multiple medication to treat her pain some of them include Percocet 5 b.i.d. as well as gabapentin 300 b.i.d.. For many years we she was under care of neurologist who was treating her fibromyalgia prescribing her Percocet and continuing gabapentin. In the past she had extensive courses of physical therapy which did not give her any improvement of the pain she had chiropractic manipulations which helped her in some extent and she had massage therapy which was not effective for her. She had 10s unit she reports 10s unit application increase her pain. 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 Neuroma of foot Sacroiliitis Surgical History H/O tubal ligation History of lumpectomy of right breast History of nasal surgery Review of Systems Const All systems reviewed & are unremarkable except as noted in HPI and below ENT Reports Normal hearing present Neuro Reports Normal hearing present and Denies confusion Psych Denies confusion Physical Exam Vital Signs: Last Vital Signs Pulse 96 09/29/23 10:23 Resp 12 09/29/23 10:23 BP 144/80 H 09/29/23 10:23 Pulse Ox 99 09/29/23 10:23 Oxygen Delivery Method Room Air 09/29/23 10:23 BMI result Body Mass Index 19.0 Const General: cooperative, alert and awake; No confusion Orientation/consciousness: patient oriented x3 and No confusion Resp Effort & Inspection: able to speak in complete sentences, no audible wheezes and no cough Back/Spine/Pelvis Other: Positive Stinchfield, positive Steve, positive pelvic compression test. On the right. Neuro General: patient oriented x3 and No confusion Cranial nerves: Yes Normal hearing present Cognition (Neuro): normal cognition Psych Mental Status: mental status grossly normal Speech and movement: Clear speech present Affect: normal affect Attitude: cooperative Thought process: Normal thought process present Thought content: Normal thought content present and No Depressive thoughts present Insight: Good insight present (Psych) Judgement: Good judgement present (Psych) Assessment & Plan Assessment & Plan (1) Chronic pain syndrome: Code(s): G89.4 - Chronic pain syndrome (2) Sacroiliitis: Code(s): M46.1 - Sacroiliitis, not elsewhere classified Plan Essence is very pleasant 63 years old female who is in our chronic opioid program. Her pill count is correct. In the past we were planning PNS CURONIX of the sacroiliac joint. She requested me to and until the end of the winter to schedule her for psych evaluation, alternatively one of her colleagues psychologists could give her psychological evaluation. Overall her pain level is low. She does not ask for escalation of the opioid medications. I will renew her opioid medications today there due on 10/19/2023. Narcan was prescribed on 09/01/2023. Next appointment in 1 month. Medications: Refilled oxycodone-acetaminophen 5-325 mg (Percocet) Partial Fill upon patient request. 1 tab PO BID 30 days PRN 60 tabs 0RF pain (scale score 7-10) Coding Level of Care Code Est Pt Level 3 (71181) Diagnoses Chronic pain syndrome G89.4 Sacroiliitis M46.1
[2023-09-29 10:23] VITALS: BP 144/80; PULSE 96; RESP 12; O2SAT 99; BMI 19.0
== END 2023-09-29 10:34 | disposition home or self-care (01) ==
PROVIDERS: PCP Internal Medicine; Visit Provider Anesthesiology
DX: G89.4 Chronic pain syndrome (principal); M46.1 Sacroiliitis, not elsewhere classified; Z79.891 Long term (current) use of opiate analgesic
CPT/HCPCS: 99213

== ENCOUNTER → 2023-09-29 10:02 | Outpatient (BNVA) | payer OTHER, SELFPAY | PROVIDERS: PCP Internal Medicine; Visit Provider Anesthesiology | DX: Z51.81 Encounter for therapeutic drug level monitoring (principal); F11.20 Opioid dependence, uncomplicated; M46.1 Sacroiliitis, not elsewhere classified; G89.4 Chronic pain syndrome | CPT/HCPCS: 99212 ==

== ENCOUNTER 2023-11-03 09:59 | Outpatient (AMB) | payer MEDICAID, SELFPAY ==
--- NOTE | 2023-11-03 10:05 | A.OFFVIS_ITS ---
Intake Vital Signs 11/03/23 10:17 Height 5 ft 3 in Weight 107 lb 6 oz BMI 19.0 BP 144/70 H Blood Pressure Location Lt brachial Position Sitting Respiration 16 Pulse 65 Pulse Source Pulse Oximeter Pulse Oximetry (%) 94 Oxygen Delivery Method Room Air Intake Visit Reasons: Pill Count Intake Note: patient comes in for pill count. Reports pain 8/. Allergies aspirin Allergy (Verified 11/03/23 10:17) swelling,rash Sulfa (Sulfonamide Antibiotics) Allergy (Verified 11/03/23 10:17) oral swelling tetracycline Allergy (Verified 11/03/23 10:17) severe vomiting HPI HPI Comments History of Present Illness Details Essence is in for the follow-up and pain medication pill count. She reported today with 32 pills in her possession. She supposed to have 30 pills in her possession. Her pill count is correct. She reports opioid medications help her to remain active perform better activities of daily living. She denies any side effects. She is prescribed gabapentin by another provider. She reports gabapentin also helps her pain. We were planning to do SI joint innervation stimulation however patient is reluctant to go for psychological hannah luation. She has IBS and she was reporting today that opioid medications help her to avoid diarrhea. I mentioned to her today that the irritable bowel syndrome could be result of parasite infection of the GI tract. I recommended her to ask the PCP to sent her for O&P. I will prescribe the patient her opioid medications today due on 11/18/2023. I will see her in 1 month for pill count. Prior: On diagnostic sacroiliac joint injection she [id number]% pain relief for 2 days with increased daily functioning, better mobility, sleep and social interactions. Patient reports after procedure she was able to complete all chores in her home and clean her house without significant discomfort in her right lower back, buttock and lateral hip. Patient reports no pain during those 2 days with sitting or driving. She reports pain in right SIJ area has returned on . Patient reports she was told during procedure that there was a significant gap in her right SIJ and has discussed SIJ fusion procedure . Patient continues to smoke and upper candidate for SI joint stabilization and fusion. However I offered her pain S stim wave for the sacroiliac joints on the right, she needs to go for psychological evaluation. SI joint stimulation was explained to her. Past Procedures: 10/20/22: Right Diagnostic SIJ injection -100% pain relief for 2 days. Prior: On the MRI of the cervical spine there is not much of a significant changes. On the MRI of the lumbar spine at L4-5 level there is left shifted disc bulge with clumping of the nerves especially exiting L5. On physical exam some symptoms of sacroiliac joint pathology on the right as well as potential piriformis pathology on the right. SI joint fusion was offered to the patient if she will stop smoking. Unfortunately she continues to smoke. Her PHQ score is equal to 4. Her opioid risk addiction score is equal to 7. Her total risk is equal to 11.mild risk for opioid addiction She complains on pain in the neck pain in bilateral lower extremities bilateral upper extremities pain in thoracic spine pain in the lumbar spine pain in the projection of right sacroiliac joint and pain in bilateral knees which limits her mobility prevents her from going up stairs in her house. She was diagnosed in the past with fibromyalgia neuropathy and arthritis she receives multiple medication to treat her pain some of them include Percocet 5 b.i.d. as well as gabapentin 300 b.i.d.. For many years we she was under care of neurologist who was treating her fibromyalgia prescribing her Percocet and continuing gabapentin. In the past she had extensive courses of physical therapy which did not give her any improvement of the pain she had chiropractic manipulations which helped her in some extent and she had massage therapy which was not effective for her. She had 10s unit she reports 10s unit application increase her pain. 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 Neuroma of foot Sacroiliitis Surgical History H/O tubal ligation History of lumpectomy of right breast History of nasal surgery Review of Systems Const All systems reviewed & are unremarkable except as noted in HPI and below ENT Reports Normal hearing present Neuro Reports Normal hearing present and Denies confusion Psych Denies confusion Physical Exam Vital Signs: Last Vital Signs Pulse 65 11/03/23 10:17 Resp 16 11/03/23 10:17 BP 144/70 H 11/03/23 10:17 Pulse Ox 94 11/03/23 10:17 Oxygen Delivery Method Room Air 11/03/23 10:17 BMI result Body Mass Index 19.0 Const General: cooperative, alert and awake; No confusion Orientation/consciousness: patient oriented x3 and No confusion Resp Effort & Inspection: able to speak in complete sentences, no audible wheezes and no cough Back/Spine/Pelvis Other: Positive Stinchfield, positive Steve, positive pelvic compression test. On the right. Neuro General: patient oriented x3 and No confusion Cranial nerves: Yes Normal hearing present Cognition (Neuro): normal cognition Psych Mental Status: mental status grossly normal Speech and movement: Clear speech present Affect: normal affect Attitude: cooperative Thought process: Normal thought process present Thought content: Normal thought content present and No Depressive thoughts present Insight: Good insight present (Psych) Judgement: Good judgement present (Psych) Assessment & Plan Assessment & Plan (1) Chronic pain syndrome: Code(s): G89.4 - Chronic pain syndrome (2) Sacroiliitis: Code(s): M46.1 - Sacroiliitis, not elsewhere classified Plan Essence is very pleasant 63 years old female who is in our chronic opioid program. Her pill count is correct. In the past we were planning PNS CURONIX of the sacroiliac joint. She requested me to and until the end of the winter to schedule her for psych evaluation, alternatively one of her colleagues psychologists could give her psychological evaluation. Overall her pain level is low. She does not ask for escalation of the opioid medications. IBS discussed, fibromyalgia discuss, PCP directed O&P study is suggested. I will renew her opioid medications today there due on 11/18/2023. Narcan was prescribed on 09/01/2023. Next appointment in 1 month. Medications: Refilled oxycodone-acetaminophen 5-325 mg (Percocet) Partial Fill upon patient request. 1 tab PO BID PRN 60 tabs 0RF pain (scale score 7-10) 30 days Patient Instructions: I here by testify that I spent 30 minutes in conversation with this patient as well as planning her care and organizing this note. Coding Level of Care Code Est Pt Level 4 (74007) Diagnoses Chronic pain syndrome G89.4 Sacroiliitis M46.1
[2023-11-03 10:17] VITALS: BP 144/70; PULSE 65; RESP 16; O2SAT 94; BMI 19.0
== END 2023-11-03 10:33 | disposition home or self-care (01) ==
PROVIDERS: PCP Internal Medicine; Visit Provider Anesthesiology
DX: G89.4 Chronic pain syndrome (principal); M46.1 Sacroiliitis, not elsewhere classified; Z79.891 Long term (current) use of opiate analgesic
CPT/HCPCS: 99214

== ENCOUNTER → 2023-11-03 09:59 | Outpatient (BNVA) | payer MEDICAID, SELFPAY | PROVIDERS: PCP Internal Medicine; Visit Provider Anesthesiology | DX: Z51.81 Encounter for therapeutic drug level monitoring (principal); F11.20 Opioid dependence, uncomplicated; M46.1 Sacroiliitis, not elsewhere classified; G89.4 Chronic pain syndrome | CPT/HCPCS: 99212 ==

== ENCOUNTER 2023-12-01 09:52 | Outpatient (AMB) | payer OTHER, SELFPAY ==
--- NOTE | 2023-12-01 10:01 | A.OFFVIS_ITS ---
Vital Signs 12/01/23 10:20 Height 5 ft 3 in Weight 107 lb 8 oz BMI 19.0 BP 140/88 H Blood Pressure Location Lt brachial Position Sitting Respiration 14 Pulse 84 Pulse Source Pulse Oximeter Pulse Oximetry (%) 99 Oxygen Delivery Method Room Air Intake Visit Reasons: PILL COUNT Intake Note: Patient comes in for pill count. Reports pain 5-6/10. Allergies aspirin Allergy (Verified 12/01/23 10:22) swelling,rash Sulfa (Sulfonamide Antibiotics) Allergy (Verified 12/01/23 10:22) oral swelling tetracycline Allergy (Verified 12/01/23 10:22) severe vomiting HPI Comments Details: Essence is in for the follow-up and pain medication pill count. She reported today with 38 pills in her possession. She supposed to have 36 pills in her possession. Her pill count is correct. She reports opioid medications help her to remain active perform better activities of daily living. She denies any side effects. She is prescribed gabapentin by another provider. She reports gabapentin also helps her pain. We were planning to do SI joint innervation stimulation however patient is reluctant to go for psychological evaluation. She has IBS and opioid medication help her to avoid diarrhea. The next prescription is due on 12/19/2023. The next appointment will be in 1 month for pill count. Prior: On diagnostic sacroiliac joint injection she [id number]% pain relief for 2 days with increased daily functioning, better mobility, sleep and social inte ractions. Patient reports after procedure she was able to complete all chores in her home and clean her house without significant discomfort in her right lower back, buttock and lateral hip. Patient reports no pain during those 2 days with sitting or driving. She reports pain in right SIJ area has returned on . Patient reports she was told during procedure that there was a significant gap in her right SIJ and has discussed SIJ fusion procedure . Patient continues to smoke and upper candidate for SI joint stabilization and fusion. However I offered her pain S stim wave for the sacroiliac joints on the right, she needs to go for psychological evaluation. SI joint stimulation was explained to her. Past Procedures: 10/20/22: Right Diagnostic SIJ injection-100% pain relief for 2 days. Prior: On the MRI of the cervical spine there is not much of a significant changes. On the MRI of the lumbar spine at L4-5 level there is left shifted disc bulge with clumping of the nerves especially exiting L5. On physical exam some symptoms of sacroiliac joint pathology on the right as well as potential piriformis pathology on the right. SI joint fusion was offer ed to the patient if she will stop smoking. Unfortunately she continues to smoke. Her PHQ score is equal to 4. Her opioid risk addiction score is equal to 7. Her total risk is equal to 11.mild risk for opioid addiction She complains on pain in the neck pain in bilateral lower extremities bilateral upper extremities pain in thoracic spine pain in the lumbar spine pain in the projection of right sacroiliac joint and pain in bilateral knees which limits her mobility prevents her from going up stairs in her house. She was diagnosed in the past with fibromyalgia neuropathy and arthritis she receives multiple medication to treat her pain some of them include Percocet 5 b.i.d. as well as gabapentin 300 b.i.d.. For many years we she was under care of neurologist who was treating her fibromyalgia prescribing her Percocet and continuing gabapentin. In the past she had extensive courses of physical therapy which did not give her any improvement of the pain she had chiropractic manipulations which helped her in some extent and she had massage therapy which was not effective for her. She had 10s unit she reports 10s unit application increase her pain. 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 Neuroma of foot Sacroiliitis Surgical History H/O tubal ligation History of lumpectomy of right breast History of nasal surgery Review of Systems Const All systems reviewed & are unremarkable except as noted in HPI and below ENT Reports Normal hearing present Neuro Reports Normal hearing present and Denies confusion Psych Denies confusion Physical Exam Vital Signs: Last Vital Signs Pulse 84 12/01/23 10:20 Resp 14 12/01/23 10:20 BP 140/88 H 12/01/23 10:20 Pulse Ox 99 12/01/23 10:20 Oxygen Delivery Method Room Air 12/01/23 10:20 BMI result Body Mass Index 19.0 Const General: cooperative, alert and awake; No confusion Orientation/consciousness: patient oriented x3 and No confusion Resp Effort & Inspection: able to speak in complete sentences, no audible wheezes and no cough Back/Spine/Pelvis Other: Positive Stinchfield, positive Steve, positive pelvic compression test. On the right. Neuro General: patient oriented x3 and No confusion Cranial nerves: Yes Normal hearing present Cognition (Neuro): normal cognition Psych Mental Status: mental status grossly normal Speech and movement: Clear speech present Affect: normal affect Attitude: cooperative Thought process: Normal thought process present Thought content: Normal thought content present and No Depressive thoughts present Insight: Good insight present (Psych) Judgement: Good judgement present (Psych) Assessment & Plan Assessment & Plan (1) Chronic pain syndrome: Code(s): G89.4 - Chronic pain syndrome Category: Medical (2) Sacroiliitis: Code(s): M46.1 - Sacroiliitis, not elsewhere classified Category: Medical Plan Essence is very pleasant 63 years old female who is in our chronic opioid program. Her pill count is correct. In the past we were planning PNS CURONIX of the sacroiliac joint. When she will be comfortable to go for psychological evaluation we will schedule her again at this time she has not very eager to go for it. I will renew her opioid medications today there due on 12/19/2023 Narcan was prescribed on 09/01/2023. Next appointment in 1 month. Medications: Refilled oxycodone-acetaminophen 5-325 mg (Percocet) Partial Fill upon patient request. 1 tab PO BID PRN 60 tabs 0RF pain (scale score 7-10) 30 days Coding Level of Care Code Est Pt Level 3 (43506) Diagnoses Chronic pain syndrome G89.4 Sacroiliitis M46.1
[2023-12-01 10:20] VITALS: BP 140/88; PULSE 84; RESP 14; O2SAT 99; BMI 19.0
== END 2023-12-01 10:17 | disposition home or self-care (01) ==
PROVIDERS: PCP Internal Medicine; Visit Provider Anesthesiology
DX: G89.4 Chronic pain syndrome (principal); M46.1 Sacroiliitis, not elsewhere classified; Z79.891 Long term (current) use of opiate analgesic
CPT/HCPCS: 99213

== ENCOUNTER → 2023-12-01 09:52 | Outpatient (BNVA) | payer OTHER, SELFPAY | PROVIDERS: PCP Internal Medicine; Visit Provider Anesthesiology | DX: Z51.81 Encounter for therapeutic drug level monitoring (principal); F11.20 Opioid dependence, uncomplicated; M46.1 Sacroiliitis, not elsewhere classified; G89.4 Chronic pain syndrome | CPT/HCPCS: 99212 ==

== ENCOUNTER 2023-12-30 09:41 | Outpatient (AMB) | payer OTHER, SELFPAY ==
--- NOTE | 2023-12-30 09:49 | A.OFFVIS_ITS ---
Vital Signs 12/30/23 09:58 Height 5 ft 3 in Weight 109 lb 8 oz BMI 19.4 BP 138/84 Blood Pressure Location Lt brachial Position Sitting Respiration 14 Pulse 94 Pulse Source Pulse Oximeter Pulse Oximetry (%) 97 Oxygen Delivery Method Room Air Intake Visit Reasons: PILL COUNT Intake Note: Patient comes in for pill count. Reports pain 3/. Allergies aspirin Allergy (Verified 12/30/23 09:58) swelling,rash Sulfa (Sulfonamide Antibiotics) Allergy (Verified 12/30/23 09:58) oral swelling tetracycline Allergy (Verified 12/30/23 09:58) severe vomiting HPI Comments Details: Essence is in for the follow-up and pain medication pill count. She presented today with 39 pills in her possession she supposed to have 38. This demonstrates responsible attitude for opioid medications. She denies complications or side effects from the opioid medications. She has IBS syndrome and opioid medications help her to avoid loose stool. She will be prescribed her medications for the next refill on 01/18/2024. I also will schedule her for psychological evaluation to treat her with cure on X PNS. That will be right-sided cure on X PNS of sacroiliac joint innervation stimulation. Prior: On diagnostic sacroiliac joint injection she % pain relief for 2 days with increased daily functioning, better mobility, sleep and social interactions. Patient reports after procedure she was able to complete all chores in her home and clean her house without significant discomfort in her right lower back, buttock and lateral hip. Patient reports no pain during those 2 days with sitting or driving. She reports pain in right SIJ area has returned on . Patient reports she was told during procedure that there was a significant gap in her right SIJ and has discussed SIJ fusion procedure . Patient continues to smoke and upper candidate for SI joint stabilization and fusion. However I offered her pain S stim wave for the sacroiliac joints on the right, she needs to go for psychological evaluation. SI joint stimulation was explained to her. Past Procedures: 10/20/22: Right Diagnostic SIJ injection-100% pain relief for 2 days. Prior: On the MRI of the cervical spine there is not much of a significant changes. On the MRI of the lumbar spine at L4-5 level there is left shifted disc bulge with clumping of the nerves especially exiting L5. On physical exam some symptoms of sacroiliac joint pathology on the right as well as potential piriformis pathology on the right. SI joint fusion was offered to the patient if she will stop smoking. Unfortunately she continues to smoke. Her PHQ score is equal to 4. Her opioid risk addiction score is equal to 7. Her total risk is equal to 11.mild risk for opioid addiction She complains on pain in the neck pain in bilateral lower extremities bilateral upper extremities pain in thoracic spine pain in the lumbar spine pain in the projection of right sacroiliac joint and pain in bilateral knees which limits her mobility prevents her from going up stairs in her house. She was diagnosed in the past with fibromyalgia neuropathy and arthritis she receives multiple medication to treat her pain some of them include Percocet 5 b.i.d. as well as gabapentin 300 b.i.d.. For many years we she was under care of neurologist who was treating her fibromyalgia prescribing her Percocet and continuing gabapentin. In the past she had extensive courses of physical therapy which did not give her any improvement of the pain she had chiropractic manipulations which helped her in some extent and she had massage therapy which was not effective for her. She had 10s unit she reports 10s unit application increase her pain. 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 Neuroma of foot Sacroiliitis Surgical History H/O tubal ligation History of lumpectomy of right breast History of nasal surgery Review of Systems Const All systems reviewed & are unremarkable except as noted in HPI and below ENT Reports Normal hearing present Neuro Reports Normal hearing present and Denies confusion Psych Denies confusion Physical Exam Vital Signs: Last Vital Signs Pulse 94 12/30/23 09:58 Resp 14 12/30/23 09:58 BP 138/84 12/30/23 09:58 Pulse Ox 97 12/30/23 09:58 Oxygen Delivery Method Room Air 12/30/23 09:58 BMI result Body Mass Index 19.4 Const General: cooperative, alert and awake; No confusion Orientation/consciousness: patient oriented x3 and No confusion Resp Effort & Inspection: able to speak in complete sentences, no audible wheezes and no cough Back/Spine/Pelvis Other: Positive Stinchfield, positive Steve, positive pelvic compression test. On the right. Neuro General: patient oriented x3 and No confusion Cranial nerves: Yes Normal hearing present Cognition (Neuro): normal cognition Psych Mental Status: mental status grossly normal Speech and movement: Clear speech present Affect: normal affect Attitude: cooperative Thought process: Normal thought process present Thought content: Normal thought content present and No Depressive thoughts present Insight: Good insight present (Psych) Judgement: Good judgement present (Psych) Assessment & Plan Assessment & Plan (1) Chronic pain syndrome: Code(s): G89.4 - Chronic pain syndrome Category: Medical (2) Sacroiliitis: Code(s): M46.1 - Sacroiliitis, not elsewhere classified Category: Medical Plan Essence is very pleasant 63 years old female who is in our chronic opioid program. Her pill count is correct. In the past we were planning PNS CURONIX of the sacroiliac joint. She agreed today to go for psychological evaluation. Co pain was explained to the patient. The patient agreed to go for the procedure. She has a computer at home. e her opioid medication count is cor rect today her new refill will be scheduled on 01/18/2024. Narcan was prescribed on 09/01/2023. Next appointment in 1 month. Medications: Refilled oxycodone-acetaminophen 5-325 mg (Percocet) Partial Fill upon patient request. 1 tab PO BID 30 days PRN 60 tabs 0RF pain (scale score 7-10) Patient Instructions: I here by testify that I spent 32 minutes in conversation with this patient as wounds planning her care and organizing this note. Coding Level of Care Code Est Pt Level 4 (37231) Diagnoses Chronic pain syndrome G89.4 Sacroiliitis M46.1
[2023-12-30 09:58] VITALS: BP 138/84; PULSE 94; RESP 14; O2SAT 97; BMI 19.4
== END 2023-12-30 10:22 | disposition home or self-care (01) ==
PROVIDERS: PCP Internal Medicine; Visit Provider Anesthesiology
DX: G89.4 Chronic pain syndrome (principal); M46.1 Sacroiliitis, not elsewhere classified; Z79.891 Long term (current) use of opiate analgesic
CPT/HCPCS: 99214

== ENCOUNTER → 2023-12-30 09:41 | Outpatient (BNVA) | payer OTHER, SELFPAY | PROVIDERS: PCP Internal Medicine; Visit Provider Anesthesiology | DX: M46.1 Sacroiliitis, not elsewhere classified (principal); G89.4 Chronic pain syndrome; Z79.891 Long term (current) use of opiate analgesic | CPT/HCPCS: 99212 ==

== ENCOUNTER 2024-01-26 09:56 | Outpatient (AMB) | payer OTHER, SELFPAY ==
--- NOTE | 2024-01-26 10:19 | A.OFFVIS_ITS ---
Vital Signs 01/26/24 10:27 Height 5 ft 3 in Weight 110 lb 6 oz BMI 19.5 BP 140/82 H Blood Pressure Location Lt brachial Position Sitting Respiration 14 Pulse 94 Pulse Source Pulse Oximeter Pulse Oximetry (%) 98 Oxygen Delivery Method Room Air Intake Visit Reasons: PILL COUNT Intake Note: Patient comes in for pill count. Reports pain 02/01. Allergies aspirin Allergy (Verified 01/26/24 10:28) swelling,rash Sulfa (Sulfonamide Antibiotics) Allergy (Verified 01/26/24 10:28) oral swelling tetracycline Allergy (Verified 01/26/24 10:28) severe vomiting HPI Comments Details: Essence is in for the follow-up and pain medication pill count. She presents today with 47 pills in her possession. She supposed to have 46 pills in her possession. This demonstrates responsible attitude for opioid medications. She denies complications or side effects from the opioid medications. She has IBS syndrome and opioid medications help her to avoid loose stool. She will be prescribed her medications for the next refill on 01/18/2024. She was told that psychological evaluation is not affordable for her since it ranges from 100 to 300 dollars co-pay. My staff will give her call and will inform her that she can not get psychological evaluation from the any [place] psychologist or psychiatrist who will accept her insurance for the purpose of the psychological evaluation. We will provide template over form necessary to fill up for psychological evaluation. Prior: On diagnostic sacroiliac joint injection she [id number]% pain relief for 2 days with increased daily functioning, better mobility, sleep and social interactions. Patient reports after procedure she was able to complete all chores in her home and clean her house without significant discomfort in her right lower back, buttock and lateral hip. Patient reports no pain during those 2 days with sitting or driving. She reports pain in right SIJ area has returned on . Patient reports she was told during procedure that there was a significant gap in her right SIJ and has discussed SIJ fusion procedure . Patient continues to smoke and upper candidate for SI joint stabilization and fusion. However I offered her pain S stim wave for the sacroiliac joints on the right, she needs to go for psychological evaluation. SI joint stimulation was explained to her. Past Procedures: 10/20/22: Right Diagnostic SIJ injection-100% pain relief for 2 days. Prior: On the MRI of the cervical spine there is not much of a significant changes. On the MRI of the lumbar spine at L4-5 level there is left shifted disc bulge with clumping of the nerves especially exiting L5. On physical exam some symptoms of sacroiliac joint pathology on the right as well as potential piriformis pathology on the right. SI joint fusion was offered to the patient if she will stop smoking. Unfortunately she continues to smoke. Her PHQ score is equal to 4. Her opioid risk addiction score is equal to 7. Her total risk is equal to 11.mild risk for opioid addiction She complains on pain in the neck pain in bilateral lower extremities bilateral upper extremities pain in thoracic spine pain in the lumbar spine pain in the projection of right sacroiliac joint and pain in bilateral knees which limits her mobility prevents her from going up stairs in her house. She was diagnosed in the past with fibromyalgia neuropathy and arthritis she receives multiple medication to treat her pain some of them include Percocet 5 b.i.d. as well as gabapentin 300 b.i.d.. For many years we she was under care of neurologist who was treating her fibro myalgia prescribing her Percocet and continuing gabapentin. In the past she had extensive courses of physical therapy which did not give her any improvement of the pain she had chiropractic manipulations which helped her in some extent and she had massage therapy which was not effective for her. She had 10s unit she reports 10s unit application increase her pain. 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 Neuroma of foot Sacroiliitis Surgical History H/O tubal ligation History of lumpectomy of right breast History of nasal surgery Review of Systems Const All systems reviewed & are unremarkable except as noted in HPI and below ENT Reports Normal hearing present Neuro Reports Normal hearing present and Denies confusion Psych Denies confusion Physical Exam Vital Signs: Last Vital Signs Pulse 94 01/26/24 10:27 Resp 14 01/26/24 10:27 BP 140/82 H 01/26/24 10:27 Pulse Ox 98 01/26/24 10:27 Oxygen Delivery Method Room Air 01/26/24 10:27 BMI result Body Mass Index 19.5 Const General: cooperative, alert and awake; No confusion Orientation/consciousness: patient oriented x3 and No confusion Resp Effort & Inspection: able to speak in complete sentences, no audible wheezes and no cough Back/Spine/Pelvis Other: Positive Stinchfield, positive Steve, positive pelvic compression test. On the right. Neuro General: patient oriented x3 and No confusion Cranial nerves: Yes Normal hearing present Cognition (Neuro): normal cognition Psych Mental Status: mental status grossly normal Speech and movement: Clear speech present Affect: normal affect Attitude: cooperative Thought process: Normal thought process present Thought content: Normal thought content present and No Depressive thoughts present Insight: Good insight present (Psych) Judgement: Good judgement present (Psych) Assessment & Plan Assessment & Plan (1) Chronic pain syndrome: Code(s): G89.4 - Chronic pain syndrome Category: Medical (2) Sacroiliitis: Code(s): M46.1 - Sacroiliitis, not elsewhere classified Category: Medical Plan Essence is very pleasant 63 years old female who is in our chronic opioid program. Her pill count is correct. In the past we were planning PNS CURONIX of the sacroiliac joint. Discussion about psychological evaluation see as above. She may find her own psychologist or psychiatrist who will accept her insurance to produce psychological evaluation. We will provide the template for to produce psychological evaluation. New oxycodone acetaminophen 5/325 will be prescribed on 02/18/2024. Last naltrexone prescription is 08/29/2023. Next appointment in 1 month. Medications: Refilled oxycodone-acetaminophen 5-325 mg (Percocet) Partial Fill upon patient request. 1 tab PO BID 30 days PRN 60 tabs 0RF pain (scale score 7-10) Coding Level of Care Code Est Pt Level 3 (44573) Diagnoses Chronic pain syndrome G89.4 Sacroiliitis M46.1
[2024-01-26 10:27] VITALS: BP 140/82; PULSE 94; RESP 14; O2SAT 98; BMI 19.5
== END 2024-01-26 10:38 | disposition home or self-care (01) ==
PROVIDERS: PCP Internal Medicine; Visit Provider Anesthesiology
DX: G89.4 Chronic pain syndrome (principal); M46.1 Sacroiliitis, not elsewhere classified; Z79.891 Long term (current) use of opiate analgesic
CPT/HCPCS: 99213

== ENCOUNTER → 2024-01-26 09:56 | Outpatient (BNVA) | payer OTHER, SELFPAY | PROVIDERS: PCP Internal Medicine; Visit Provider Anesthesiology | DX: M46.1 Sacroiliitis, not elsewhere classified (principal); M79.7 Fibromyalgia; G89.4 Chronic pain syndrome; Z51.81 Encounter for therapeutic drug level monitoring | CPT/HCPCS: 99212 ==

== ENCOUNTER 2024-02-23 10:15 | Outpatient (AMB) | payer OTHER, SELFPAY ==
[2024-02-23 10:38] VITALS: BP 126/77; PULSE 103; O2SAT 94; BMI 19.4
--- NOTE | 2024-02-23 10:38 | A.OFFVIS_ITS ---
Vital Signs 02/23/24 10:38 Height 5 ft 3 in Weight 109 lb 4 oz BMI 19.4 BP 126/77 Blood Pressure Location Lt brachial Position Sitting Pulse 103 H Pulse Source Pulse Oximeter Pulse Oximetry (%) 94 Oxygen Delivery Method Room Air Intake Visit Reasons: PILL COUNT Intake Note: Essence is a 63 year old female who presents to the office today for a pill count. Pt states she took her pill at 3:00pm yesterday afternoon. Allergies aspirin Allergy (Verified 02/23/24 10:38) swelling,rash Sulfa (Sulfonamide Antibiotics) Allergy (Verified 02/23/24 10:38) oral swelling tetracycline Allergy (Verified 02/23/24 10:38) severe vomiting PFSH Medical History Environmental and seasonal allergies Allergy to mold Neuroma of foot Chronic pain syndrome longterm (current) use of opiate analgesic Fibromyalgia Sacroiliitis Surgical History History of lumpectomy of right breast History of nasal surgery H/O tubal ligation Physical Exam Vital Signs: Last Vital Signs Pulse 103 H 02/23/24 10:38 BP 126/77 02/23/24 10:38 Pulse Ox 94 02/23/24 10:38 Oxygen Delivery Method Room Air 02/23/24 10:38 BMI result Body Mass Index 19.4 Assessment & Plan Assessment & Plan (1) Chronic pain syndrome: Code(s): G89.4 - Chronic pain syndrome Category: Medical (2) Sacroiliitis: Code(s): M46.1 - Sacroiliitis, not elsewhere classified Category: Medical Plan Essence is very pleasant 63 years old female who is in our chronic opioid program. Her pill count is correct. In the past we were planning PNS CURONIX of the sacroiliac joint. She may find her own psychologist or psychiatrist who will accept her insurance to produce psychological evaluation. New oxycodone acetaminophen 5/325 will be prescribed on 03/19/2024. Last naloxone prescription is 08/29/2023. Next appointment in 1 month. Medications: Refilled oxycodone-acetaminophen 5-325 mg (Percocet) Partial Fill upon patient request. 1 tab PO BID PRN 60 tabs 0RF pain (scale score 7-10) 30 days Coding Level of Care Code Est Pt Level 3 (29811) Diagnoses Chronic pain syndrome G89.4 Sacroiliitis M46.1
== END 2024-02-23 10:58 | disposition home or self-care (01) ==
PROVIDERS: PCP Internal Medicine; Visit Provider Anesthesiology
DX: G89.4 Chronic pain syndrome (principal); M46.1 Sacroiliitis, not elsewhere classified
CPT/HCPCS: 99213

== ENCOUNTER → 2024-02-23 10:15 | Outpatient (BNVA) | payer MEDICAID, SELFPAY | PROVIDERS: PCP Internal Medicine; Visit Provider Anesthesiology | DX: Z51.81 Encounter for therapeutic drug level monitoring (principal); F11.20 Opioid dependence, uncomplicated; M46.1 Sacroiliitis, not elsewhere classified; G89.4 Chronic pain syndrome | CPT/HCPCS: 99212 ==

== ENCOUNTER → 2024-03-22 09:45 | Outpatient (BNVA) | payer MEDICAID, SELFPAY | PROVIDERS: PCP Internal Medicine; Visit Provider Anesthesiology | DX: R52 Pain, unspecified (principal); Z51.81 Encounter for therapeutic drug level monitoring; Z79.891 Long term (current) use of opiate analgesic | CPT/HCPCS: 99211 ==

== ENCOUNTER 2024-04-19 09:39 | Outpatient (AMB) | payer MEDICAID, SELFPAY ==
--- NOTE | 2024-04-19 09:41 | A.OFFVIS_ITS ---
Vital Signs 04/19/24 10:12 Height 5 ft 3 in Weight 111 lb 4 oz BMI 19.7 BP 150/76 H Blood Pressure Location Rt brachial Position Sitting Respiration 16 Pulse 97 Pulse Source Pulse Oximeter Pulse Oximetry (%) 99 Oxygen Delivery Method Room Air Intake Visit Reasons: Pill Count/Random UDS Intake Note: Essence comes in for pill count and random UDS. She has until 12pm to get it done. Reports pain level today is 7/10. Allergies aspirin Allergy (Verified 04/19/24 10:15) swelling,rash Sulfa (Sulfonamide Antibiotics) Allergy (Verified 04/19/24 10:15) oral swelling tetracycline Allergy (Verified 04/19/24 10:15) severe vomiting HPI Comments Details: Essence is in for the follow-up and pain medication pill count. She presents today with 58 pills in her possession. She supposed to have 58 pills in her possession. This demonstrates responsible attitude for opioid medications. She denies complications or side effects from the opioid medications. She has IBS syndrome and opioid medications help her to avoid loose stool. She will be prescribed her medications for the next refill on 05/18/24 We agreed today that she will request her primary care physician to refer her to a psychologist specifically to evaluate her in preparation for implantable pain medication devices. She would need to provide us the fax number of that psychologist once she is referred to them so we can send the necessary paperwork and requirements of the psychological evaluation. Prior: On diagnostic sacroiliac joint injection she [id number]% pain relief for 2 days with increased daily functioning, better mobility, sleep and social interactions. Patient reports after procedure she was able to complete all chores in her home and clean her house without significant discomfort in her right lower back, buttock and lateral hip. Patient reports no pain during those 2 days with sitting or driving. She reports pain in right SIJ area has returned on . Patient reports she was told during procedure that there was a significant gap in her right SIJ and has discussed SIJ fusion procedure . Patient continues to smoke and upper candidate for SI joint stabilization and fusion. However I offered her pain S stim wave for the sacroiliac joints on the right, she needs to go for psychological evaluation. SI joint stimulation was explained to her. Past Procedures: 10/20/22: Right Diagnostic SIJ injection-100% pain relief for 2 days. Prior: On the MRI of the cervical spine there is not much of a significant changes. On the MRI of the lumbar spine at L4-5 level there is left shifted disc bulge with clumping of the nerves especially exiting L5. On physical exam some symptoms of sacroiliac joint pathology on the right as well as potential piriformis pathology on the right. SI joint fusion was offered to the patient if she will stop smoking. Unfortunately she continues to smoke. Her PHQ score is equal to 4. Her opioid risk addiction score is equal to 7. 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 of opiate analgesic Fibromyalgia Sacroiliitis Surgical History History of lumpectomy of right breast History of nasal surgery H/O tubal ligation Review of Systems Const All systems reviewed & are unremarkable except as noted in HPI and below ENT Reports Normal hearing present Neuro Reports Normal hearing present and Denies confusion Psych Denies confusion Physical Exam Vital Signs: Last Vital Signs Pulse 97 04/19/24 10:12 Resp 16 04/19/24 10:12 BP 150/76 H 04/19/24 10:12 Pulse Ox 99 04/19/24 10:12 Oxygen Delivery Method Room Air 04/19/24 10:12 BMI result Body Mass Index 19.7 Const General: cooperative, alert and awake; No confusion Orientation/consciousness: patient oriented x3 and No confusion Resp Effort & Inspection: able to speak in complete sentences, no audible wheezes and no cough Back/Spine/Pelvis Other: Positive Stinchfield, positive Steve, positive pelvic compression test. On the right. Neuro General: patient oriented x3 and No confusion Cranial nerves: Yes Normal hearing present Cognition (Neuro): normal cognition Psych Mental Status: mental status grossly normal Speech and movement: Clear speech present Affect: normal affect Attitude: cooperative Thought process: Normal thought process present Thought content: Normal thought content present and No Depressive thoughts present Insight: Good insight present (Psych) Judgement: Good judgement present (Psych) Assessment & Plan Assessment & Plan (1) Chronic pain syndrome: Code(s): G89.4 - Chronic pain syndrome Category: Medical (2) Sacroiliitis: Code(s): M46.1 - Sacroiliitis, not elsewhere classified Category: Medical Plan Essence is very pleasant 63 years old female who is in our chronic opioid program. Her pill count is correct. In the past we were planning PNS CURONIX of the sacroiliac joint. She may find her own psychologist or psychiatrist who will accept her insurance to produce psychological evaluation. She will ask her primary care physician to refer her to necessary psychologist. She also will obtain the psychologist office fax number and we will fax the necessary information on how the psychological evaluation report needs to look like. New oxycodone acetaminophen 5/325 will be prescribed on 04/18/2024 Last naloxone prescription is 08/29/2023. Next appointment in 5 weeks Medications: Refilled oxycodone-acetaminophen 5-325 mg (Percocet) Partial Fill upon patient request. 1 tab PO BID 30 days PRN 60 tabs 0RF pain (scale score 7-10) Coding Level of Care Code Est Pt Level 3 (48991) Diagnoses Chronic pain syndrome G89.4 Sacroiliitis M46.1
[2024-04-19 10:12] VITALS: BP 150/76; PULSE 97; RESP 16; O2SAT 99; BMI 19.7
== END 2024-04-19 10:22 | disposition home or self-care (01) ==
PROVIDERS: PCP Internal Medicine; Visit Provider Anesthesiology
DX: G89.4 Chronic pain syndrome (principal); M46.1 Sacroiliitis, not elsewhere classified
CPT/HCPCS: 99213

== ENCOUNTER → 2024-04-19 09:39 | Outpatient (BNVA) | payer MEDICAID, SELFPAY | PROVIDERS: PCP Internal Medicine; Visit Provider Anesthesiology | DX: G89.4 Chronic pain syndrome (principal); M46.1 Sacroiliitis, not elsewhere classified | CPT/HCPCS: 99212 ==

== ENCOUNTER 2024-05-24 09:26 | Outpatient (AMB) | payer MEDICAID, SELFPAY ==
--- NOTE | 2024-05-24 09:36 | A.OFFVIS_ITS ---
Vital Signs 05/24/24 09:43 Height 5 ft 3 in Weight 110 lb 6 oz BMI 19.5 BP 130/74 Blood Pressure Location Lt brachial Position Sitting Respiration 14 Pulse 104 H Pulse Source Pulse Oximeter Pulse Oximetry (%) 96 Oxygen Delivery Method Room Air Intake Visit Reasons: Pill Count Intake Note: Patient comes in for pill count. Reports pain 5/10. Allergies aspirin Allergy (Verified 05/24/24 09:44) swelling,rash Sulfa (Sulfonamide Antibiotics) Allergy (Verified 05/24/24 09:44) oral swelling tetracycline Allergy (Verified 05/24/24 09:44) severe vomiting HPI Comments Details: Essence is in for the follow-up and pain medication pill count. She presents today with 50 pills in her possession. She supposed to have 50 to pills in her possession. This demonstrates responsible attitude for opioid medications. She denies complications or side effects from the opioid medications. She has IBS syndrome and opioid medications help her to avoid loose stool. She will be prescribed her medications for the next refill on 06/19/2024. She is 2 pills short today. It is within her daily dose limit so it is acceptable but I warned her that she needs to make sure next time that she has present with her medications slight excess. She expressed understanding. She is still waiting for an appointment with primary care physician to get a referral to psychologist to justify that she is not having any psychological issues and can not be referred to PNS and SCS neuromodulation. Prior: On diagnostic sacroiliac joint injection she [id number]% pain relief for 2 days with increased daily functioning, better mobility, sleep and social interactio ns. Patient reports after procedure she was able to complete all chores in her home and clean her house without significant discomfort in her right lower back, buttock and lateral hip. Patient reports no pain during those 2 days with sitting or driving. She reports pain in right SIJ area has returned on . Patient reports she was told during procedure that there was a significant gap in her right SIJ and has discussed SIJ fusion procedure . Patient continues to smoke and upper candidate for SI joint stabilization and fusion. However I offered her pain S stim wave for the sacroiliac joints on the right, she needs to go for psychological evaluation. SI joint stimulation was explained to her. Past Procedures: 10/20/22: Right Diagnostic SIJ injection-100% pain relief for 2 days. Prior: On the MRI of the cervical spine there is not much of a significant changes. On the MRI of the lumbar spine at L4-5 level there is left shifted disc bulge with clumping of the nerves especially exiting L5. On physical exam some symptoms of sacroiliac joint pathology on the right as well as potential piriformis pathology on the right. SI joint fusion was offered to the patient if she will stop smoking. Unfortunately she continues to smoke. Her PHQ score is equal to 4. Her opioid risk addiction score is equal to 7. Her total risk is equal to 11.mild risk for opioid addiction [facility] Medical History Environmental and seasonal allergies Allergy to mold Neuroma of foot Chronic pain syndrome nursing home (current) use of opiate analgesic Fibromyalgia Sacroiliitis Surgical History History of lumpectomy of right breast History of nasal surgery H/O tubal ligation Review of Systems Const All systems reviewed & are unremarkable except as noted in HPI and below ENT Reports Normal hearing present Neuro Reports Normal hearing present and Denies confusion Psych Denies confusion Physical Exam Vital Signs: Last Vital Signs Pulse 104 H 05/24/24 09:43 Resp 14 05/24/24 09:43 BP 130/74 05/24/24 09:43 Pulse Ox 96 05/24/24 09:43 Oxygen Delivery Method Room Air 05/24/24 09:43 BMI result Body Mass Index 19.5 Const General: cooperative, alert and awake; No confusion Orientation/consciousness: patient oriented x3 and No confusion Resp Effort & Inspection: able to speak in complete sentences, no audible wheezes and no cough Back/Spine/Pelvis Other: Positive Stinchfield, positive Steve, positive pelvic compression test. On the right. Neuro General: patient oriented x3 and No confusion Cranial nerves: Yes Normal hearing present Cognition (Neuro): normal cognition Psych Mental Status: mental status grossly normal Speech and movement: Clear speech present Affect: normal affect Attitude: cooperative Thought process: Normal thought process present Thought content: Normal thought content present and No Depressive thoughts present Insight: Good insight present (Psych) Judgement: Good judgement present (Psych) Assessment & Plan Assessment & Plan (1) Chronic pain syndrome: Code(s): G89.4 - Chronic pain syndrome Category: Medical (2) Sacroiliitis: Code(s): M46.1 - Sacroiliitis, not elsewhere classified Category: Medical Plan Essence is very pleasant 63 years old female who is in our chronic opioid program. Her pill count is correct. In the past we were planning PNS CURONIX of the sacroiliac joint. She may find her own psychologist or psychiatrist who will accept her insurance to produce psychological evaluation. She will ask her primary care physician to refer her to necessary psychologist. She also will obtain the psychologist office fax number and we will fax the necessary information on how the psychological evaluation report needs to look like. New oxycodone acetaminophen 5/325 will be prescribed on 06/19/2020 Last naloxone prescription is 08/29/2023. Next appointment in 1 month. Medications: Refilled oxycodone-acetaminophen 5-325 mg (Percocet) Partial Fill upon patient request. 1 tab PO BID 30 days PRN 60 tabs 0RF pain (scale score 7-10) Coding Level of Care Code Est Pt Level 3 (07523) Diagnoses Chronic pain syndrome G89.4 Sacroiliitis M46.1
[2024-05-24 09:43] VITALS: BP 130/74; PULSE 104; RESP 14; O2SAT 96; BMI 19.5
== END 2024-05-24 10:00 | disposition home or self-care (01) ==
LOC: HO.PMC 09:26
PROVIDERS: PCP Internal Medicine; Visit Provider Anesthesiology
DX: G89.4 Chronic pain syndrome (principal); M46.1 Sacroiliitis, not elsewhere classified
CPT/HCPCS: 99213

== ENCOUNTER → 2024-05-24 09:26 | Outpatient (BNVA) | payer MEDICAID, SELFPAY | PROVIDERS: PCP Internal Medicine; Visit Provider Anesthesiology | DX: Z51.81 Encounter for therapeutic drug level monitoring (principal); F11.20 Opioid dependence, uncomplicated; M46.1 Sacroiliitis, not elsewhere classified; G89.4 Chronic pain syndrome | CPT/HCPCS: 99212 ==

== ENCOUNTER 2024-06-21 11:27 | Outpatient (AMB) | payer MEDICAID, SELFPAY ==
--- NOTE | 2024-06-21 11:51 | A.OFFVIS_ITS ---
Vital Signs 06/21/24 12:05 Height 5 ft 3 in Weight 106 lb 3 oz BMI 18.8 BP 142/80 H Blood Pressure Location Lt brachial Position Sitting Respiration 16 Pulse 103 H Pulse Source Pulse Oximeter Pulse Oximetry (%) 98 Oxygen Delivery Method Room Air Intake Visit Reasons: Pill Count Intake Note: patient comes in for pill count. Reports pain 2/. Allergies aspirin Allergy (Verified 06/21/24 12:06) swelling,rash Sulfa (Sulfonamide Antibiotics) Allergy (Verified 06/21/24 12:06) oral swelling tetracycline Allergy (Verified 06/21/24 12:06) severe vomiting HPI Comments Details: Essence is in for the follow-up and pain medication pill count. She presents today with 59 pills in her possession. She supposed to have 58 to pills in her possession. This demonstrates responsible attitude for opioid medications. She denies complications or side effects from the opioid medications. She has IBS syndrome and opioid medications help her to avoid loose stool. She will be prescribed her medications for the next refill on 06/19/2024. She complains today on pain on the right knee which comes from the subcutaneous mass. She requests me to send her to the general surgery office to biopsy the mass. I will do as she requested. She is still waiting for psychological evaluation from her own psychologist. She had her primary care physician to make a referral for this evaluation. Her primary care physician does not want to prescribe her gabapentin. I will take over this prescription. Prior: On diagnostic sacroiliac joint injection she [id number]% pain relief for 2 days with increased daily functioning, better mobility, sleep and social interactions. Patient reports after procedure she was able to complete all chores in her home and clean her house without significant discomfort in her right lower back, buttock and lateral hip. Patient reports no pain during those 2 days with sitting or driving. Past Procedures: 10/20/22: Right Diagnostic SIJ injection-100% pain relief for 2 days. Prior: On the MRI of the cervical spine there is not much of a significant changes. On the MRI of the lumbar spine at L4-5 level there is left shifted disc bulge with clumping of the nerves especially exiting L5. On physical exam some symptoms of sacroiliac joint pathology on the right as well as potential piriformis pathology on the right. SI joint fusion was offered to the patient if she will stop smoking. Unfortunately she continues to smoke. Her PHQ score is equal to 4. Her opioid risk addiction score is equal to 7. 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 Fibromyalgia Sacroiliitis Surgical History History of lumpectomy of right breast History of nasal surgery H/O tubal ligation Review of Systems Const All systems reviewed & are unremarkable except as noted in HPI and below ENT Reports Normal hearing present Neuro Reports Normal hearing present and Denies confusion Psych Denies confusion Physical Exam Const General: cooperative, alert and awake; No confusion Orientation/consciousness: patient oriented x3 and No confusion Resp Effort & Inspection: able to speak in complete sentences, no audible wheezes and no cough Back/Spine/Pelvis Other: Positive Stinchfield, positive Steve, positive pelvic compression test. On the right. Neuro General: patient oriented x3 and No confusion Cranial nerves: Yes Normal hearing present Cognition (Neuro): normal cognition Extrem Other: On inspection of the right knee there is a small subcutaneous mass on the anterior surface of the right knee. The mass is tender on palpation. Psych Mental Status: mental status grossly normal Speech and movement: Clear speech present Affect: normal affect Attitude: cooperative Thought process: Normal thought process present Thought content: Normal thought content present and No Depressive thoughts present Insight: Good insight present (Psych) Judgement: Good judgement present (Psych) Assessment & Plan Assessment & Plan (1) Chronic pain syndrome: Code(s): G89.4 - Chronic pain syndrome Category: Medical (2) Sacroiliitis: Code(s): M46.1 - Sacroiliitis, not elsewhere classified Category: Medical (3) Subcutaneous mass of right lower leg: Code(s): R22.41 - Localized swelling, mass and lump, right lower limb Category: Medical Plan Essence is very pleasant 63 years old female who is in our chronic opioid program . Her pill count is correct. In the past we were planning PNS CURONIX of the sacroiliac joint. She may find her own psychologist or psychiatrist who will accept her insurance to produce psychological evaluation. She will ask her primary care physician to refer her to necessary psychologist. She also will obtain the psychologist office fax number and we will fax the necessary information on how the psychological evaluation report needs to look like. New oxycodone acetaminophen 5/325 will be prescribed on 07/20/2024 Gabapentin was prescribed to the patient since her primary care physician refused to continue this prescription. Last naloxone prescription is 08/29/2023. Next appointment in 1 month. Orders: Referrals General Surgery Referral R22.41 - Localized swelling, mass and lump, right lower limb Medications: New gabapentin 300 mg PO TID 30 days 90 caps 8RF Refilled oxycodone-acetaminophen 5-325 mg (Percocet) Partial Fill upon patient request. 1 tab PO BID 30 days PRN 60 tabs 0RF pain (scale score 7-10) Patient Instructions: I here by testify that I spent 30 minutes in conversation with this patient as well as planning her care and organizing this note. Coding Level of Care Code Est Pt Level 4 (62031) Diagnoses Chronic pain syndrome G89.4 Sacroiliitis M46.1 Subcutaneous mass of right lower leg R22.41
[2024-06-21 12:05] VITALS: BP 142/80; PULSE 103; RESP 16; O2SAT 98; BMI 18.8
== END 2024-06-21 12:02 | disposition home or self-care (01) ==
PROVIDERS: PCP Internal Medicine; Visit Provider Anesthesiology
DX: G89.4 Chronic pain syndrome (principal); M46.1 Sacroiliitis, not elsewhere classified; R22.41 Localized swelling, mass and lump, right lower limb
CPT/HCPCS: 99214

== ENCOUNTER → 2024-06-21 11:27 | Outpatient (BNVA) | payer MEDICAID, SELFPAY | PROVIDERS: PCP Internal Medicine; Visit Provider Anesthesiology | DX: Z51.81 Encounter for therapeutic drug level monitoring (principal); F11.20 Opioid dependence, uncomplicated; M46.1 Sacroiliitis, not elsewhere classified; R22.41 Localized swelling, mass and lump, right lower limb; G89.4 Chronic pain syndrome | CPT/HCPCS: 99212 ==

== ENCOUNTER 2024-07-06 10:33 | Outpatient (AMB) | payer OTHER, SELFPAY ==
--- OUTSIDE RECORDS SUMMARY | 2024-07-06 10:37 | XMS_ITS | Continuity of Care Document ---
Author Organization [facility] Adult Address [address] [place] [id number]- Care Team Providers Care Trucker Hand Name Role Phone Sheeba QUINTANA, Raymond Primary Care Physician [phone] [place] [facility] 05/13/24 - 06/12/24 [facility] [address] [place] [address]- Encounter Type: Triage Allergies, Adverse Reactions, Alerts Substance Criticality Severity Reaction Reaction Severity Status tetracycline severe vomitng Ac tive aspirin swelling,rash Active sulfa drugs oral swelling Acti ve Mold difficulty rogerio thing, oral swelling Active Immunizations Given and Recorded Vaccine Date Status Refusal Reason influenza virus vaccine, inactivated 05/18/22 Torsten rded influenza virus vaccine, inactivated 06/06/21 Torsten rded influenza virus vaccine, inactivated 03/03/20 Torsten rded influenza virus vaccine, inactivated 1 04/12/18 Gi helen influenza virus vaccine, inactivated 2 04/18/17 Gi helen influenza virus vaccine, inactivated 3 04/08/17 Gi helen influenza virus vaccine, inactivated 4 03/29/15 Re corded influenza virus vaccine, inactivated 5 05/06/14 Re corded influenza virus vaccine, inactivated 6 04/23/13 Gi helen influenza virus vaccine, inactivated 03/31/12 Give n influenza virus vaccine, inactivated 7 05/15/11 Gi helen influenza virus vaccine, inactivated 8 05/21/10 Gi helen influenza virus vaccine, inactivated 9 04/20/09 Gi helen influenza virus vaccine, inactivated 05/12/08 Give n SARS-CoV-2 (COVID-19) mRNA BNT-162b2 vac 08/15/21 Recorded SARS-CoV-2 (COVID-19) mRNA BNT-162b2 vac 12/12/20 Recorded SARS-CoV-2 (COVID-19) mRNA BNT-162b2 vac 11/21/20 Recorded Influenza Virus Vaccine (oldterm) 03/19/19 Recorde d pneumococcal 23-valent vaccine 10 02/23/18 Given zoster vaccine, inactivated 11 02/23/18 Given Influenza Inactive (IM) (oldterm) 12 02/28/16 Give n tetanus/diphtheria/pertussis, acel(Tdap) 13 10/14/11 Given 1[facility] 6[facility] 7Admin Note: Work 8Admin Note: VIS 03/05/09 9Admin Note: vis 03/05/09 10Admin Note: Declined 11Admin Note: Declined 12[facility] 13Admin Note: Declined Medications acetaminophen-oxyCODONE 325 mg-5 mg oral tablet 1, tablet, By Mouth, 2 times a day, # 60 tablet, Refills 0, Tot. Refills 0, Maintenance, 11/27/20 10:47:00 AM EDT, Route to Pharmacy Electronically, [facility]/pharmacy #[id number], Partial fill upon patient request; FILL 10/29/20, 160.8, cm, 09/12/20 15:09:00 EST, Height Start Date: 11/27/20 Stop Date: 12/27/20 Status: Ordered Quantity: 60.0 Unit: tablet Repeat number: 1 Indication: Low back pain cyclobenzaprine 10 mg oral tablet 10 mg, 1, tablet, By Mouth, 2 times a day, PRN, # 28 tablet, Refills 0, Tot. Refills 0, Maintenance, Muscle Spasms, 04/04/24 10:56:00 AM EDT, Route to Pharmacy Electronically, [facility]/pharmacy #[id number], Partial fill upon patient request if the prescription is for a schedule II opioid drug., 160.8, cm, 11/12/23 14:44:00 EDT, Height, 50, kg, 11/05/22 13:30:00 EDT, Dry Weight Start Date: 04/04/24 Stop Date: 04/18/24 Status: Ordered Quantity: 28.0 Unit: tablet Repeat number: 1 duloxetine 60 mg oral enteric coated capsule 1 capsule, By Mouth, Daily, # 90 capsule, 1 Refills, Maintenance, 05/15/24 8:20:00 AM EDT, [id number], 160.8, cm, 11/12/23 14:44:00 EDT, Height, 50, kg, 11/05/22 13:30:00 EDT, Dry Weight Start Date: 05/15/24 Status: Ordered Quantity: 90.0 Unit: capsule Repeat number: 1 gabapentin 300 mg oral capsule 1, capsule, By Mouth, 3 times a day, # 270 capsule, Refills 0, Tot. Refills 0, Maintenance, 246:31:00 AM EDT, Route to Pharmacy Electronically, [facility]/pharmacy #[id number], 160.8, cm, 11/12/23 14:44:00 EDT, Height, 50, kg, 11/05/22 13:30:00 EDT, Dry Weight Start Date: 12/22/23 Status: Ordered Quantity: 270.0 Unit: capsule Repeat number: 1 montelukast 10 mg oral tablet take 1 tablet by mouth once daily Start Date: 12/14/18 Status: Ordered Repeat number: 1 Multivitamin Daily, 0 Refills, Maintenance, 12/14/18 3:02:54 PM EDT Start Date: 12/14/18 Status: Ordered Repeat number: 1 Problem List Condition Confirmation Course Effective Dates Status Health St atus Informant Anxiety Confirmed Active Asthma Confirmed Active Fibromyalgia Confirmed Active PABLO (generalized anxiety disorder) Confirmed Active Idiopathic peripheral neuropathy Confirmed Active Social History Social History Type Response Tobacco Other: 1/2 ppd, 35 p ack yr history. 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
--- OUTSIDE RECORDS SUMMARY | 2024-07-06 10:37 | XMS_ITS | Continuity of Care Document ---
Author Organization [facility] Adult Address [address] [place] [address]- Care Team Providers Care Obedience Trainer Name Role Phone Sheeba QUINTANA, Raymond Primary Care Physician [phone] Encounter [facility] [place] Date(s): 06/16/24 - 06/23/[address] [address]- Encounter Diagnosis Anxiety(Discharge Diagnosis) - 06/16/24 Fibromyalgia(Discharge Diagnosis) - 06/16/24 Attending Physician: Raymond Aly MD Encounter Type: Office Visit Allergies, Adverse Reactions, Alerts Substance Criticality Severity Reaction Reaction Severity Status tetracycline severe vomitng Ac tive sulfa drugs oral swelling Acti ve Mold difficulty rogerio thing, oral swelling Active aspirin swelling,rash Active Immunizations Given and Recorded Vaccine Date [...] [facility] 6[facility] 7Admin Note: Work 8Admin Note: VIS 03/05/09 9Admin Note: vis 03/05/09 10Admin Note: Declined 11Admin Note: Declined 12[facility] 13Admin Note: Declined Medications acetaminophen-oxyCODONE 325 mg-5 mg oral tablet 1, tablet, By Mouth, 2 times a day, # 60 tablet, Refills 0, Tot. Refills 0, Maintenance, 11/27/20 10:47:00 AM EDT, Route to Pharmacy Electronically, [facility]/pharmacy #[id number], Partial fill upon patient request; FILL 10/29/20, 160.8, cm, 09/12/20 15:09:00 EST, Height Start Date: 11/27/20 Stop Date: 12/27/20 Status: Ordered Quantity: 60.0 Unit: tablet Repeat number: 1 Indication: Low back pain duloxetine 30 mg oral enteric coated capsule 1 capsule, By Mouth, Daily, # 90 capsule, 1 Refills, Maintenance, 06/16/24 10:21:00 PM EST, [facility]/pharmacy #[id number], 160.8, cm, 06/16/24 14:36:00 EST, Height, 50, kg, 11/05/22 13:30:00 EDT, Dry Weight Start Date: 06/16/24 Status: Ordered Quantity: 90.0 Unit: capsule Repeat number: 2 duloxetine 60 mg oral enteric coated capsule See Instructions, TAKE 1 CAPSULE BY MOUTH EVERY DAY, # 90 capsule, 1 Refills, Maintenance, 06/16/2410:19:00 PM EST, [id number], 160.8, cm, 06/16/24 14:36:00 EST, Height, 50, kg, 11/05/22 13:30:00 EDT, Dry Weight Start Date: 06/16/24 Status: Ordered Quantity: 90.0 Unit: capsule Repeat number: 1 montelukast 10 mg oral tablet take 1 tablet by mouth once daily Start Date: 12/14/18 Status: Ordered Repeat number: 1 Multivitamin Daily, 0 Refills, Maintenance, 12/14/18 3:02:54 PM EDT Start Date: 12/14/18 Status: Ordered Repeat number: 1 Problem List Condition Confirmation Course Effective Dates Status Health St atus Informant Anxiety Confirmed Active Asthma Confirmed Active Fibromyalgia Confirmed Active Idiopathic peripheral neuropathy Confirmed Active Diagnosis Diagnosis Type Effective Dates Health Status Cl inical Service Informant Anxiety Discharge Diagnosis 06/16/24 Fibromyalgia Discharge Diagnosis 06/16/24 Vital Signs Most recent to oldest [Reference Range]: 1 Height 160.8 cm (06/16/24 2:36 PM) Social History Social History Type Response Tobacco Other: 1/2 ppd, 35 p ack yr history. 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 [place] [address]- Telecom: Care Team Related Persons Name: COLT LYNN Name: LEON MARVIN Name: PIOTR HILLIARD Insurance Providers Guarantor name: YOKO HILLIARD Health Plan Information #: 1 Payer: [employer] Member Number: [id number] Policy Number: NA Group Number: [id number] Health Plan Information #: 2 Payer: [facility] Member Number: [id number] Policy Number: NA Group Number: NA
--- OUTSIDE RECORDS SUMMARY | 2024-07-06 10:37 | XMS_ITS | Continuity of Care Document ---
Author Organization [facility] Adult Address [address] [place] [address]- Care Team Providers Care Specification Writer Name Role Phone Sheeba QUINTANA, Raymond Primary Care Physician Encounter [facility] [place] Date(s): 05/13/24 - 06/12/24 [facility] [address] [place] [address] Encounter Type: Triage Allergies, Adverse Reactions, Alerts [...] [facility] 6[facility] 7Admin Note: Work 8Admin Note: VIS 03/05/09 9Admin Note: vis 03/05/09 10Admin Note: Declined 11Admin Note: Declined 12Admin Note[facility] 13Admin Note: Declined Medications acetaminophen-oxyCODONE 325 mg-5 mg oral tablet 1, tablet, By Mouth, 2 times a day, # 60 tablet, Refills 0, Tot. Refills 0, Maintenance, 11/27/20 10:47:00 AM EDT, Route to Pharmacy Electronically, [facility]/pharmacy #[id number], Partial fill upon patient request; [...] 10:56:00 AM EDT, Route to Pharmacy Electronically, [facility]/pharmacy #[id number], Partial fill upon patient request [...] Maintenance, 05/15/24 8:20:00 AM EDT, [id number], 160.8, cm, 11/12/23 14:44:00 EDT, Height, 50, kg, 11/05/22 13:30:00 EDT, Dry Weight Start Date: 05/15/24 Status: Ordered Quantity: 90.0 Unit: capsule Repeat number: 1 gabapentin 300 mg oral capsule 1, capsule, By Mouth, 3 times a day, # 270 capsule, Refills 0, Tot. Refills 0, Maintenance, 246:31:00 AM EDT, Route to Pharmacy Electronically, [facility]/pharmacy #[id number], 160.8, cm, 11/12/23 14:44:00 EDT, [...] Team Personnel Name: Raymond Aly MD Position: [facility] Physician - Primary Care Member Role: PCP Address: [address] [facility] [facility] [address] [place] [address]- Telecom: Name: Dandy QUINTANA, Ady Chino Position: [facility] JOB PRESS FEEDER MD Member Role: [employer] JOB PRESS FEEDER Physician Address: [address] [place] [address] [place] [address]- Telecom: Care Team Related Persons Name: COLT LYNN Name: LEON MARVIN Name: PIOTR HILLIARD Insurance Providers Guarantor name: YOKO HILLIARD Health Plan Information #: 1 Payer: [facility] Member Number: NA Policy Number: NA Group Number: NA
--- OUTSIDE RECORDS SUMMARY | 2024-07-06 10:37 | XMS_ITS | Continuity of Care Document ---
Author Organization [facility] Address [address] [place] [phone]- Care Team Providers Care Compound Finisher Name Role Phone Sheeba QUINTANA, Raymond Primary Care Physician [phone] Encounter [facility] [id number] Date(s): 05/04/24 - 06/29/24 [facility] [address] [place] [phone]- Attending Physician: Ramyond Aly MD Referring Physician: Raymond Aly MD Encounter Type: Pre Office Visit Allergies, Adverse Reactions, Alerts Substance [...] [facility]Location [facility] 6Admin Note: [facility] 7Admin Note: Work 8Admin Note: VIS 03/05/09 9Admin Note: vis 03/05/09 10Admin Note: Declined 11Admin Note: Declined 12Admin Note: [facility] 13Admin Note: Declined Medications acetaminophen-oxyCODONE 325 mg-5 mg oral tablet 1, tablet, By Mouth, 2 times a day, # 60 tablet, Refills 0, Tot. Refills 0, Maintenance, 11/27/20 10:47:00 AM EDT, Route to Pharmacy Electronically, [facility]/pharmacy #[id number], Partial fill upon patient request; FILL 10/29/20, 160.8, cm, 09/12/20 15:09:00 EST, Height Start Date: 11/27/20 Stop Date: 12/27/20 Status: Ordered Quantity: 60.0 Unit: tablet Repeat number: 1 Indication: Low back pain duloxetine 30 mg oral enteric coated capsule 1 capsule, By Mouth, Daily, # 90 capsule, 1 Refills, Maintenance, 06/16/24 10:21:00 PM EST, [facility]/pharmacy #[id number], 160.8, cm, 06/16/24 14:36:00 EST, Height, 50, kg, 11/05/22 13:30:00 EDT, Dry Weight Start Date: 06/16/24 Status: Ordered Quantity: 90.0 Unit: capsule Repeat number: 2 duloxetine 60 mg oral enteric coated capsule See Instructions, TAKE 1 CAPSULE BY MOUTH EVERY DAY, # 90 capsule, 1 Refills, Maintenance, 06/16/2410:19:00 PM EST, [id number], 160.8, cm, 06/16/24 14:36:00 EST, Height, 50, [...] Care team information Care Team Personnel Name: Sheeba QUINTANA, Raymond Position: [facility] Physician - Primary Care Member Role: PCP Address: [address] [place] [id number]- Telecom: Name: Dandy QUINTANA, Ady Cihno Position: [facility] ARMHOLE PRESSER MD Member Role: Lifetime ARMHOLE PRESSER Physician Address: [address] [place] [address]'s [facility] [place] [address]- Telecom: Care Team Related Persons Name: COLT LYNN Name: LEON MARVIN Name: PIOTR HILLIARD Insurance Providers Guarantor name: YOKO HILLIARD Health Plan Information #: 1 Payer: [employer] [facility] Member Number: [id number] Policy Number: NA Group Number: [id number] Health Plan Information #: 2 Payer: [employer] [facility] Member Number: [id number] Policy Number: NA Group Number: [id number]
--- NOTE | 2024-07-06 10:38 | A.OFFVIS_ITS ---
Vital Signs 07/06/24 10:45 Height 5 ft 3 in Weight 109 lb BMI 19.3 BP 160/84 H Blood Pressure Location Rt brachial Position Sitting Pulse 93 Intake Visit Reasons: lump of the right lower limb Intake Note: This patient was referred by presents for lump of the right lower knee. Present for 5yrs. Pt c/o; painful with pressure. Hx of neuromas removed from feet. Medic Technician Required: No Accompanied by: Self / Same As Patient Allergies aspirin Allergy (Verified 07/06/24 10:43) swelling,rash Sulfa (Sulfonamide Antibiotics) Allergy (Verified 07/06/24 10:43) oral swelling tetracycline Allergy (Verified 07/06/24 10:43) severe vomiting Medication List - Last Reconciled 07/06/24 by Migel Evans MD cetirizine (Zyrtec) 10 mg PO DAILY PRN duloxetine 60 mg PO DAILY duloxetine 30 mg PO DAILY gabapentin 300 mg PO TID 30 days montelukast 10 mg PO BEDTIME naloxone 4 mg/actuation 4 mg intranasal Q3M PRN 1 day oxycodone-acetaminophen 5-325 mg (Percocet) 1 tab PO BID PRN 30 days HPI HPI lump of the right lower limb: Details: 64-year-old female referred for a ?lump? on the knee. She says that she has had this ?forever?. She had been seeing the pain specialist and she was worried because she was told that this may be a ?tumor?. She denies any pain or discomfort she denies any previous trauma to the area. She says that the lump does not really bother her. 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 Fibromyalgia Sacroiliitis Surgical History History of lumpectomy of right breast History of nasal surgery H/O tubal ligation Social History Alcohol intake: never Tobacco use type: Cigarette Cigarettes Per Day: 20 Review of Systems Const Denies chills and Denies fever(s) Card Denies chest pain, Denies dyspnea and Denies dyspnea on exertion Resp Denies cough, Denies dyspnea and Denies dyspnea on exertion GI Denies hematochezia and Denies change in bowel habits Denies hematuria Musc Reports abnormal gait, Reports back pain, Reports myalgias, Reports arthralgias and Reports limited range of motion Neuro Reports abnormal gait, Denies focal weakness and Denies convulsions Psych Denies depression and Denies mood swings Physical Exam Vital Signs: Last Vital Signs Pulse 93 07/06/24 10:45 BP 160/84 H 07/06/24 10:45 BMI result Body Mass Index 19.3 Const General: comfortable and no acute distress Orientation/consciousness: patient oriented x3 Neck Neck: Yes no lymphadenopathy Resp Auscultation: clear to auscultation bilaterally Cardio Rhythm: regular rhythm GI Palpation (GI): Soft to palpation, nontender and no guarding Neuro General: patient oriented x3 Extrem Other: On the entire aspect of the right knee is note of what appears to be subcutaneous mass, about 2.5 cm long in about 4 mm wide, running transversely on the anterior of the knee, Assessment & Plan Assessment & Plan (1) Subcutaneous mass of right lower leg: Code(s): R22.41 - Localized swelling, mass and lump, right lower limb Category: Medical Plan: She has the mass on the leg as described above. This is right on the anterior aspect of the knee in seems to be intimately related to the patellar ligament. This really does not bother her. This has not increased in size and she has had this for most of her life. I assured that there was this was benign appearing. I told her that I would not recommend having this removed. She can keep a close eye on this and if this becomes bigger or bothers in the future, then she can follow up to be re-evaluated She is very comfortable with the plan Coding Level of Care Code New Pt Level 3 (45446) Diagnoses Subcutaneous mass of right lower leg R22.41
[2024-07-06 10:45] VITALS: BP 160/84; PULSE 93; BMI 19.3
== END 2024-07-06 10:51 | disposition home or self-care (01) ==
PROVIDERS: PCP Internal Medicine; Referring Provider Anesthesiology; Visit Provider Surgery
DX: R22.41 Localized swelling, mass and lump, right lower limb (principal)
CPT/HCPCS: 99203

== ENCOUNTER → 2024-07-06 10:33 | Outpatient (BNVA) | payer MEDICAID, SELFPAY | PROVIDERS: PCP Internal Medicine; Referring Provider Anesthesiology; Visit Provider Surgery | DX: R22.41 Localized swelling, mass and lump, right lower limb (principal) | CPT/HCPCS: 99202 ==

== ENCOUNTER 2024-08-21 09:40 | Outpatient (AMB) | payer OTHER, SELFPAY ==
[2024-08-21 09:47] VITALS: BP 146/72; PULSE 100; RESP 16; O2SAT 97; BMI 19.3
--- NOTE | 2024-08-21 09:47 | MHC.OFFVIS ---
Vital Signs 08/21/24 09:47 Height 5 ft 3 in Weight 109 lb BMI 19.3 BP 146/72 H Blood Pressure Location Lt brachial Position Sitting Respiration 16 Pulse 100 Pulse Source Pulse Oximeter Pulse Oximetry (%) 97 Oxygen Delivery Method Room Air Intake Visit Reasons: Pill Count Intake Note: Pt states she last took percocet 08/21/24 @ 8am Information Resource Consultant Required: No Allergies aspirin Allergy (Verified 08/21/24 09:48) swelling,rash Sulfa (Sulfonamide Antibiotics) Allergy (Verified 08/21/24 09:48) oral swelling tetracycline Allergy (Verified 08/21/24 09:48) severe vomiting Medication List - Last Reconciled 08/21/24 by Milagros Crabtree LPN cetirizine (Zyrtec) 10 mg PO DAILY PRN duloxetine 60 mg PO DAILY duloxetine 30 mg PO DAILY gabapentin 300 mg PO TID 30 days montelukast 10 mg PO BEDTIME naloxone 4 mg/actuation 4 mg intranasal Q3M PRN 1 day oxycodone-acetaminophen 5-325 mg (Percocet) 1 tab PO BID PRN 30 days HPI Comments Details: Essence is in for the follow-up and pain medication pill count. She presents today with 8 pills in her possession. She supposed to have 6 to pills in her possession. This demonstrates responsible attitude for opioid medications. She denies complications or side effects from the opioid medications. She has IBS syndrome and opioid medications help her to avoid loose stool. She reported today that she recently shower the snow and the pain in the back started to get worse. She requested me to start her on low-dose cyclobenzaprine. I will prescribe cyclobenzaprine for her. She will be prescribed her medications for the next refill on 08/24/[address] Evans who did not recommend to do any biopsy on the knee mass. He thinks that it is scar tissue and he does not recommend a removal. She is still waiting for psychological evaluation from her own psychologist. She had her primary care physician to make a referral for this evaluation. Prior: On diagnostic sacroiliac joint injection she [id number] pain relief for 2 days with increased daily functioning, better mobility, sleep and social interactions. Patient reports after procedure she was able to complete all chores in her home and clean her house without significant discomfort in her right lower back, buttock and lateral hip. Patient reports no pain during those 2 days with sitting or driving. Past Procedures: 10/20/22: Right Diagnostic SIJ injection-100% pain relief for 2 days. Prior: On the MRI of the cervical spine there is not much of a significant changes. On the MRI of the lumbar spine at L4-5 level there is left shifted disc bulge with clumping of the nerves especially exiting L5. On physical exam some symptoms of sacroiliac joint pathology on the right as well as potential piriformis pathology on the right. SI joint fusion was offered to the patient if she will stop smoking. Unfortunately she continues to smoke. Her PHQ score is equal to 4. Her opioid risk addiction score is equal to 7. 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 Fibromyalgia Sacroiliitis Surgical History History of lumpectomy of right breast History of nasal surgery H/O tubal ligation Social History Alcohol intake: never Tobacco use type: Cigarette Cigarettes Per Day: 20 Review of Systems Const All systems reviewed & are unremarkable except as noted in HPI and below ENT Reports Normal hearing present Neuro Reports Normal hearing present and Denies confusion Psych Denies confusion Physical Exam Vital Signs: Last Vital Signs Pulse 100 08/21/24 09:47 Resp 16 08/21/24 09:47 BP 146/72 H 08/21/24 09:47 Pulse Ox 97 08/21/24 09:47 Oxygen Delivery Method Room Air 08/21/24 09:47 BMI result Body Mass Index 19.3 Const General: cooperative, alert and awake; No confusion Orientation/consciousness: patient oriented x3 and No confusion Resp Effort & Inspection: able to speak in complete sentences, no audible wheezes and no cough Back/Spine/Pelvis Other: Positive Stinchfield, positive Steve, positive pelvic compression test. On the right. Neuro General: patient oriented x3 and No confusion Cranial nerves: Yes Normal hearing present Cognition (Neuro): normal cognition Extrem Other: On inspection of the right knee there is a small subcutaneous mass on the anterior surface of the right knee. The mass is tender on palpation. Psych Mental Status: mental status grossly normal Speech and movement: Clear speech present Affect: normal affect Attitude: cooperative Thought process: Normal thought process present Thought content: Normal thought content present and No Depressive thoughts present Insight: Good insight present (Psych) Judgement: Good judgement present (Psych) Assessment & Plan Assessment & Plan (1) Chronic pain syndrome: Code(s): G89.4 - Chronic pain syndrome Category: Medical (2) Sacroiliitis: Code(s): M46.1 - Sacroiliitis, not elsewhere classified Category: Medical (3) Subcutaneous mass of right lower leg: Code(s): R22.41 - Localized swelling, mass and lump, right lower limb Category: Medical Plan Essence is very pleasant 63 years old female who is in our chronic opioid program. Her pill count is correct. In the past we were planning PNS CURONIX of the sacroiliac joint. She may find her own psychologist or psychiatrist who will accept her insurance to produce psychological evaluation in preparation for PNS cure on X. New oxycodone acetaminophen 5/325 will be prescribed on 08/24/2024 Gabapentin was prescribed to the patient since her primary care physician refused to continue this prescription. She recently shovel the snow and reported increased pain in the back she requests me to prescribe her cyclobenzaprine. I will prescribe her cyclobenzaprine as below. Last naloxone prescription is 08/29/2023. Next appointment in 1 month. Medications: New cyclobenzaprine 5 mg PO TID 20 days PRN 60 tabs 0RF muscle spasm Refilled oxycodone-acetaminophen 5-325 mg (Percocet) Partial Fill upon patient request. 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 Coding Level of Care Code Est Pt Level 4 (07408) Diagnoses Chronic pain syndrome G89.4 Sacroiliitis M46.1 Subcutaneous mass of right lower leg R22.41
--- OUTSIDE RECORDS SUMMARY | 2024-08-21 14:06 | XMS_ITS ---
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 Physical Encounters Encounter Location Date Provider Diagnosis [facility] [address] [id number] 08/02/2023 AGUSTÍN ROMO Encounter for gynecological examination (general) (routine) without abnormal findings Z01.419 ; Encounter for screening mammogram for malignant neoplasm of breast Z12.31 and Encounter for screening for infections with a predominantly sexual mode of transmission Z11.3 Assessments Encounter Date Diagnosis (ICD Code) Assessment Notes Treatment Notes Treatment Clinical Notes Section Notes 08/02/2023 Encounter for gynecological examination (general) (routine) without abnormal findings (ICD-10 - Z01.419) During the visit, the following areas of concern were addressed: Discussed cervical cancer screening with either cytology alone every 3 years or high risk HPV co-testing every 5 years as per ASCCP guidelines. Advised continued annual pelvic exams. Patient encouraged to increase her level of exercise. SBE technique encouraged/tau ght. Patient reminded when annual mammogram is due. Patient encouraged to keep colon screening up to date. 08/02/2023 Encounter for screening mammogram for malignant neoplasm of breast (ICD-10 - Z12.31) 08/02/2023 Encounter for screening for infections with a predominantly sexual mode of transmission (ICD-10 - Z11.3) Plan Of Treatment Treatment Notes Assessment Notes Encounter for gynecological examination (general) (routine) without abnormal findings During the visit, the following areas of concern were addressed: Discussed cervical cancer screening with either cytology alone every 3 years or high risk HPV co-testing every 5 years as per ASCCP guidelines. Advised continued annual pelvic exams. Patient encouraged to increase her level of exercise. SBE technique encouraged/taught. Patient reminded when annual mammogram is due. Patient encouraged to keep colon screening up to date. Pending Test Test Name Order Date MM Digital Screening Mammogram 3D 2023 Next Appt Details Follow Up: 1 Year, Reason: Y early Pharmacy Intern Exam Progress Notes * MAGO HILLIARDB:1960 (64 yo F)Acc No.[id number]:08/02/2023 Progress Note Patient:ESSENCE ALLEN Provider:?AGUSTÍN ROMO MD :1960???Age:63 Y???Sex:Female D ate:08/02/2023 Address:[address] [place] [address] Pcp:ROSANNA ELIZALDE MD Subjective: * Chief Complaints: * ???1. 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 * HPI: ???Constitutional:? 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 She is new to this practice, having received previous canoe builder care . She has been in state of health since her last exam. She has the following concerns:. She has received the Covid-19 vaccine. Relationship status: for years. She is sexually active. Sexual partner(s): male. She does wish to have STI testing. She does report vaginal dryness. She does have hot flashes/night sweats. The patient has had an abnormal pap smear within the last 5 years. Her most recent pap smear was . She has been diagnosed with breast cancer. She does have a family history of breast cancer. Her last mammogram was 01/12/22. She does have a family history of colon cancer. She a has had a colonoscopy. The last colonoscopy was . The patient does exercise. She exercises x days/week by . * ROS:?Annual Pharmacy Intern Exam ROS:?Bowel habit changes?denies.?Bladder symptoms?denies.?Vaginal discharge, unusual?denies.?Vaginal itch or odor?denies.?weight or appetite changes?denies.?Chest pains, SOB?denies.?depression?denies.?Breast:?Denies?Breast lump.?Denies?Nipple discharge.?Hematology:?Denies?Swollen glands.?Skin:?Patient denies?changing moles.?Psychiatric:?Denies?Anxiety.? * Medical History:? * Pharmacy Intern History:?Mammogram:?01/12/22.? Objective: * Vitals:? * Examination: ???General Examination: ?GENERAL APPEARANCE:?in no acute distress, well developed, well nourished, adolescent coordinator present in room.?HEAD:?normocephalic, atraumatic.?NECK/THYROID:?neck supple, full range of motion, thyroid normal.?LYMPH NODES:?no axillary or supraclavicular adenopathy.?SKIN:? normal, good turgor, no rashes, no suspicious lesions.?BREASTS:? normal, no dimpling, no discharge, no drainage, no masses palpable bilaterally, nontender.?ABDOMEN:? soft, non-tender, non distended without masses or hepatosplenomegay.?RECTAL:? normal tone, no masses palpable.?BACK:? no costovertebral angle tenderness.?FEMALE GENITOURINARY:?Vulva without lesions or masses, vagina pink without abnormal discharge, lesions or masses, cervix appears normal and is not tender to palpation, uterus is normal size, mobile, nontender and anteverted, ovaries are not palpable.?NEUROLOGIC:? alert and oriented, gait normal.?PSYCH:? alert, oriented, cognitive function intact, cooperative with exam, good eye contact, mood/affect full range, speech clear.? Assessment: * Assessment: 1.?Encounter for gynecologic al examination (general) (routine) without abnormal findings - Z01.419 (Primary)???2.?Encounter for screening mammogram for malignant neoplasm of breast - Z12.31???3.?Encounter for screening for infections with a predominantly sexual mode of transmission - Z11.3??? Plan: * Treatment: 2.?Encounter for screening m ammogram for malignant neoplasm of breast?Imaging: MM Digital Screening Mammogram 3D * Follow Up:?1 Year (Reason: Y early Pharmacy Intern Exam) * Images: Billing Information: * Visit Code:? 72670 Preventive Care New Pt. Age 40-64. * Procedure Codes:? 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 She is new to this practice, having received previous canoe builder care . She has been in state of health since her last exam. She has the following concerns:. She has received the Covid-19 vaccine. Relationship status: for years. She is sexually active. Sexual partner(s): male. She does wish to have STI testing. She does report vaginal dryness. She does have hot flashes/night sweats. The patient has had an abnormal pap smear within the last 5 years. Her most recent pap smear was . She has been diagnosed with breast cancer. She does have a family history of breast cancer. Her last mammogram was 01/12/22. She does have a family history of colon cancer. She a has had a colonoscopy. The last colonoscopy was . The patient does exercise. She exercises x days/week by . Examination Category Sub-Category Detail Notes Category Not es General Examination GENERAL APPEARANCE: in no ac marshall distress, well developed, well nourished, adolescent coordinator present in room HEAD: normocephalic, atrau matic NECK/THYROID: neck supple, full ra nge of motion, thyroid normal ABDOMEN: soft, non-tender, no n distended without masses or hepatosplenomegay NEUROLOGIC: alert and oriented, gait normal SKIN: normal, good turgor, no rashes, no suspicious lesions BACK: no costovertebral an gle tenderness BREASTS: normal, no dimpling, no discharge, no drainage, no masses palpable bilaterally, nontender LYMPH NODES: no axillary or supra clavicular adenopathy RECTAL: normal tone, no mass es palpable PSYCH: alert, oriented, cog nitive function intact, cooperative with exam, good eye contact, mood/affect full range, speech clear FEMALE GENITOURINARY: Vulva without lesi ons or masses, vagina pink without abnormal discharge, lesions or masses, cervix appears normal and is not tender to palpation, uterus is normal size, mobile, nontender and anteverted, ovaries are not palpable
--- OUTSIDE RECORDS SUMMARY | 2024-08-21 14:06 | XMS_ITS ---
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 Physical Encounters Encounter Location Date Provider Diagnosis [facility] [employer] [address] [address] 03/30/2023 AGUSTÍN ROMO Encounter for gynecological examination (general) (routine) without abnormal findings Z01.419 ; Encounter for screening mammogram for malignant neoplasm of breast Z12.31 and Encounter for screening for infections with a predominantly sexual mode of transmission Z11.3 Assessments Encounter Date Diagnosis (ICD Code) Assessment Notes Treatment Notes Treatment Clinical Notes Section Notes 03/30/2023 Encounter for gynecological examination (general) (routine) without [...] to keep colon screening up to date. 03/30/2023 Encounter for screening mammogram for malignant neoplasm of breast (ICD-10 - Z12.31) 03/30/2023 Encounter for screening for infections with a [...] Order Date MM Digital Screening Mammogram 3D 2022 Next Appt Details Follow Up: 1 Year, Reason: Y early Driver Service Technician Exam Progress Notes * MAGO HILLIARDB:1960 (64 yo F)Acc No.[id number]:03/30/2023 Progress Note Patient:ESSENCE ALLEN Provider:?AGUSTÍN ROMO MD :1960???Age:63 Y???Sex:Female D ate:03/30/2023 Address:[address] [place] [address] Pcp:ROSANNA ELIZALDE MD Subjective: * Chief Complaints: * ???1. 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 * HPI: ???Constitutional:? 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 She is new to this practice, having received previous procurement professional care . She has been in state [...] exercises x days/week by . * ROS:?Annual Driver Service Technician Exam ROS:?Bowel habit changes?denies.?Bladder symptoms?denies.?Vaginal discharge, unusual?denies.?Vaginal itch or odor?denies.?weight or appetite changes?denies.?Chest pains, SOB?denies.?depression?denies.?Breast:?Denies?Breast lump.?Denies?Nipple discharge.?Hematology:?Denies?Swollen glands.?Skin:?Patient denies?changing moles.?Psychiatric:?Denies?Anxiety.? * Medical History:? Objective: * Vitals:? * Examination: ???General Examination: ?GENERAL APPEARANCE:?in no acute distress, well developed, well nourished, cyber special agent present in room.?HEAD:?normocephalic, atraumatic.?NECK/THYROID:?neck supple, full range [...] * Follow Up:?1 Year (Reason: Y early Driver Service Technician Exam) * Images: Billing Information: * Visit Code:? 05461 Preventive Care New Pt. Age 40-64. * Procedure Codes:? 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 She is new to this practice, having received previous procurement professional care . She has been in state [...] General Examination GENERAL APPEARANCE: in no ac [place] distress, well developed, well nourished, cyber special agent present in room HEAD: normocephalic, atrau matic [...]
--- OUTSIDE RECORDS SUMMARY | 2024-08-21 14:06 | XMS_ITS | Patient Health Record ---
Author Organization [facility] Address [address] [place] [address] Care Team Providers Care Fishing Tackle Repairer Name Role Phone TONIO QUINTANA, [facility] Primary Care Provider Yolanda AGUSTÍN Lagunas Unavailable [phone] Reason For Referral No Information Plan Of Treatment Pending Test Test Name Order Date MM Digital Screening Mammogram 3D 2023 Insurance Providers Payer Name Payer Address Payer Phone Subscriber Number Group Number Insured Name Patient Relationship to Insured Coverage Start Date Coverage End Date [facility] [address] [place] [address] [id number] YOKO HILLIARD Self - patient is the insured
== END 2024-08-21 10:01 | disposition home or self-care (01) ==
PROVIDERS: PCP Internal Medicine; Visit Provider Anesthesiology
DX: G89.4 Chronic pain syndrome (principal); M46.1 Sacroiliitis, not elsewhere classified; R22.41 Localized swelling, mass and lump, right lower limb
CPT/HCPCS: 99214

== ENCOUNTER → 2024-08-21 09:40 | Outpatient (BNVA) | payer OTHER, SELFPAY | PROVIDERS: PCP Internal Medicine; Visit Provider Anesthesiology | DX: G89.4 Chronic pain syndrome (principal); M46.1 Sacroiliitis, not elsewhere classified; R22.41 Localized swelling, mass and lump, right lower limb; Z51.81 Encounter for therapeutic drug level monitoring; Z79.891 Long term (current) use of opiate analgesic | CPT/HCPCS: 99212 ==

== ENCOUNTER 2024-09-14 09:54 | Outpatient (AMB) | payer OTHER, SELFPAY ==
[2024-09-14 09:58] VITALS: BP 162/77; PULSE 92; O2SAT 98; BMI 20.4
--- NOTE | 2024-09-14 09:58 | MHC.OFFVIS ---
Vital Signs 09/14/24 09:58 Height 5 ft 3 in Weight 115 lb 2 oz BMI 20.4 BP 162/77 H Blood Pressure Location Lt brachial Position Sitting Pulse 92 Pulse Source Pulse Oximeter Pulse Oximetry (%) 98 Oxygen Delivery Method Room Air Intake Visit Reasons: Pill Count Allergies aspirin Allergy (Verified 09/14/24 10:01) swelling,rash Sulfa (Sulfonamide Antibiotics) Allergy (Verified 09/14/24 10:01) oral swelling tetracycline Allergy (Verified 09/14/24 10:01) severe vomiting HPI Comments Details: Essenec is in for the follow-up and pain medication pill count. She reported elevated level of pain 9/10 today. She reported that this is because she felt several times on her driveway, she stated it was icy. I offered her to go for physical therapy to help this pain. She agreed to go to physical therapy. The diagnosis for physical therapy will be acute knee pain and acute hip pain. Pill count is correct today. She presented today with 24 pills her possession. She supposed to have 22 pills in her possession. This demonstrates responsible attitude to were the opioid medications. She denies complications or side effects from the opioid medications. She has IBS syndrome and opioid medications help her to avoid loose stool. She reports opioid medications allow her to stay active, perform better activities of daily living, improved social interaction. I will stop her cyclobenzaprine since it is short term medicine only. Prior: On diagnostic sacroiliac joint injection she [id number] pain relief for 2 days with increased daily functioning, better mobility, sleep and social interactions. Patient reports after procedure she was able to complete all chores in her home and clean her house without significant discomfort in her right lower back, buttock and lateral hip. Patient reports no pain during those 2 days with sitting or driving. Past Procedures: 10/20/22: Right Diagnostic SIJ injection-100% pain relief for 2 days. Prior: On the MRI of the cervical spine there is not much of a significant changes. On the MRI of the lumbar spine at L4-5 level there is left shifted disc bulge with clumping of the nerves especially exiting L5. On physical exam some symptoms of sacroiliac joint pathology on the right as well as potential piriformis pathology on the right. SI joint fusion was offered to the patient if she will stop smoking. Unfortunately she continues to smoke. Her PHQ score is equal to 4. Her opioid risk addiction score is equal to 7. Her total risk is equal to 11.mild risk for opioid addiction [facility] Medical History Environmental and seasonal allergies Allergy to mold Neuroma of foot Chronic pain syndrome assisted (current) use of opiate analgesic Fibromyalgia Sacroiliitis Surgical History History of lumpectomy of right breast History of nasal surgery H/O tubal ligation Social History Alcohol intake: never Tobacco use type: Cigarette Cigarettes Per Day: 20 Review of Systems Const All systems reviewed & are unremarkable except as noted in HPI and below ENT Reports Normal hearing present Neuro Reports Normal hearing present and Denies confusion Psych Denies confusion Physical Exam Vital Signs: Last Vital Signs Pulse 92 09/14/24 09:58 BP 162/77 H 09/14/24 09:58 Pulse Ox 98 09/14/24 09:58 Oxygen Delivery Method Room Air 09/14/24 09:58 BMI result Body Mass Index 20.4 Const General: cooperative, alert and awake; No confusion Orientation/consciousness: patient oriented x3 and No confusion Resp Effort & Inspection: able to speak in complete sentences, no audible wheezes and no cough Back/Spine/Pelvis Other: Positive Stinchfield, positive Steve, positive pelvic compression test. On the right. Neuro General: patient oriented x3 and No confusion Cranial nerves: Yes Normal hearing present Cognition (Neuro): normal cognition Extrem Other: On inspection of the right knee there is a small subcutaneous mass on the anterior surface of the right knee. The mass is tender on palpation. Psych Mental Status: mental status grossly normal Speech and movement: Clear speech present Affect: normal affect Attitude: cooperative Thought process: Normal thought process present Thought content: Normal thought content present and No Depressive thoughts present Insight: Good insight present (Psych) Judgement: Good judgement present (Psych) Assessment & Plan Assessment & Plan (1) Chronic pain syndrome: Code(s): G89.4 - Chronic pain syndrome Category: Medical (2) Sacroiliitis: Code(s): M46.1 - Sacroiliitis, not elsewhere classified Category: Medical (3) Subcutaneous mass of right lower leg: Code(s): R22.41 - Localized swelling, mass and lump, right lower limb Category: Medical (4) Acute pain of left knee: Code(s): M25.562 - Pain in left knee Category: Medical (5) Acute pain of left hip: Code(s): M25.552 - Pain in left hip Category: Medical (6) Sacroiliac joint dysfunction: Code(s): M53.3 - Sacrococcygeal disorders, not elsewhere classified Category: Medical Plan Essence is very pleasant 63 years old female who is in our chronic opioid program. Her pill count is correct. In the past we were planning PNS CURONIX of the sacroiliac joint. She may find her own psychologist or psychiatrist who will accept her insurance to produce psychological evaluation in preparation for PNS cure on X. Her pill count is correct today. She is due for her new prescription on 09/24/2024 Last naloxone prescription is 08/29/2023. I will renew her naloxone. I also will send her to physical therapy to treat new acute trauma which increase her pain significantly. Next appointment in 1 month. Orders: Orders PT Evaluation and Treatment Today G89.4 - Chronic pain syndrome, M25.552 - Pain in left hip, M25.562 - Pain in left knee, M46.1 - Sacroiliitis, not elsewhere classified, M53.3 - Sacrococcygeal disorders, not elsewhere classified Medications: Refilled oxycodone-acetaminophen 5-325 mg (Percocet) Partial Fill upon patient request. 1 tab PO BID PRN 60 tabs 0RF pain (scale score 7-10) 30 days G89.4 - Chronic pain syndrome, Z79.891 - assisted (current) use of opiate analgesic naloxone 4 mg/actuation spray 1 dose into ONE nostril; alternate nostrils w each dose until help arrives 4 mg intranasal Q3M PRN 2 ea 1RF opioid overdose 1 day Discontinued cyclobenzaprine Discontinued Reason: Doctor's Order 5 mg PO TID 20 days PRN 60 tabs 0RF muscle spasm Coding Level of Care Code Est Pt Level 3 (75184) Diagnoses Chronic pain syndrome G89.4 Sacroiliitis M46.1 Subcutaneous mass of right lower leg R22.41 Acute pain of left knee M25.562 Acute pain of left hip M25.552 Sacroiliac joint dysfunction M53.3
--- OUTSIDE RECORDS SUMMARY | 2024-09-14 10:46 | XMS_ITS ---
Author Organization [facility] Address [address] [place] [address] Care Team Providers Care Sales And Service Technician Name Role Phone TONIO QUINTANA, ROSANNA Primary Care Provider Yolanda charityilaAGUSTÍN Anaya Unavailable [phone] REASON FOR VISIT Annual SECURITY INCIDENT HANDLER Physical Encounters Encounter Location Date Provider Diagnosis [facility] [address] [address] 08/02/2023 AGUSTÍN ROMO Encounter for gynecological examination [...] Follow Up: 1 Year, Reason: Y early Church Warden Exam Progress Notes * MAGO HILLIARDB:1960 (64 yo F)Acc No.[id number]:08/02/2023 Progress Note Patient:ESSENCE ALLEN Provider:?AGUSTÍN ROMO MD :1960???Age:63 Y???Sex:Female D ate:08/02/2023 Address:[address] [place] [address] Pcp:ROSANNA ELIZALDE MD Subjective: * Chief Complaints: * ???1. Annual SECURITY INCIDENT HANDLER Physical. * HPI: ???Constitutional:? 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 She is new to this practice, having received previous sleeve wheel maker care . She has been in state [...] exercises x days/week by . * ROS:?Annual Church Warden Exam ROS:?Bowel habit changes?denies.?Bladder symptoms?denies.?Vaginal discharge, unusual?denies.?Vaginal itch or odor?denies.?weight or appetite changes?denies.?Chest pains, SOB?denies.?depression?denies.?Breast:?Denies?Breast lump.?Denies?Nipple discharge.?Hematology:?Denies?Swollen glands.?Skin:?Patient denies?changing moles.?Psychiatric:?Denies?Anxiety.? * Medical History:? * Church Warden History:?Mammogram:?01/12/22.? Objective: * Vitals:? * Examination: ???General Examination: ?GENERAL APPEARANCE:?in no acute distress, well developed, well nourished, window caser present in room.?HEAD:?normocephalic, atraumatic.?NECK/THYROID:?neck supple, full range [...] * Follow Up:?1 Year (Reason: Y early Church Warden Exam) * Images: Billing Information: * Visit Code:? 69188 Preventive Care New Pt. Age 40-64. * Procedure Codes:? * Electronic signature of AGUSTÍN ROMO MD on 09/14/2024 at 10:45 AM EST Sign off status: Pending * Provider:?AGUSTÍN ROMO MD Date:?2023 Generated for James breaux/Kathie/eTransmitting on:?09/14/2024 10:45 AM EST History and Physical Notes * HPI (History of Present Illness) Category Sub-Category Detail Notes Category Not es Constitutional Essence is a 63yo GxPx who presents for her yearly sleeve wheel maker exam. She is new to this practice, having received previous sleeve wheel maker care . She has been in state [...] General Examination GENERAL APPEARANCE: in no ac [place] distress, well developed, well nourished, window caser present in room HEAD: normocephalic, atrau matic [...]
--- OUTSIDE RECORDS SUMMARY | 2024-09-14 10:46 | XMS_ITS ---
Author Organization [facility] [employer] [facility] Address [address] [place] [address] Care Team Providers Care Airline Operations Agent Name Role Phone TONIO QUINTANA, YOSIANNI Primary Care Provider Yolanda charityilaAGUSTÍN Anaya Unavailable [phone] REASON FOR VISIT Annual FOREST EXAMINER Physical Encounters Encounter Location Date Provider Diagnosis [facility] [employer] [address] [address] 03/30/2023 AGUSTÍN ROMO Encounter for gynecological examination [...] Follow Up: 1 Year, 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 Annual FOREST EXAMINER Physical. * HPI: ???Constitutional:? 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 She is new to this practice, having received previous fire boss care . She has been in state [...] exercises x days/week by . * ROS:?Annual Automobile Or Truck Rental Dispatcher Exam ROS:?Bowel habit changes?denies.?Bladder symptoms?denies.?Vaginal discharge, unusual?denies.?Vaginal itch or odor?denies.?weight or appetite changes?denies.?Chest pains, SOB?denies.?depression?denies.?Breast:?Denies?Breast lump.?Denies?Nipple discharge.?Hematology:?Denies?Swollen glands.?Skin:?Patient denies?changing moles.?Psychiatric:?Denies?Anxiety.? * Medical History:? Objective: * Vitals:? * Examination: ???General Examination: ?GENERAL APPEARANCE:?in no acute distress, well developed, well nourished, escrow manager present in room.?HEAD:?normocephalic, atraumatic.?NECK/THYROID:?neck supple, full range [...] * Follow Up:?1 Year (Reason: Y early Automobile Or Truck Rental Dispatcher Exam) * Images: Billing Information: * Visit Code:? 30720 Preventive Care New Pt. Age 40-64. * Procedure Codes:? 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 She is new to this practice, having received previous fire boss care . She has been in state [...] General Examination GENERAL APPEARANCE: in no ac [place] distress, well developed, well nourished, escrow manager present in room HEAD: normocephalic, atrau matic [...]
--- OUTSIDE RECORDS SUMMARY | 2024-09-14 10:46 | XMS_ITS | Patient Health Record ---
Author Organization [facility] Address [address] [place] [address] Care Team Providers Care Office Professional Name Role Phone TONIO QUINTANA, [facility] Primary Care Provider Yolanda AGUSTÍN aLgunas Unavailable [phone] Reason For Referral No Information Plan Of Treatment Pending Test Test Name Order Date MM Digital Screening Mammogram 3D 2023 Insurance Providers Payer Name Payer Address Payer Phone Subscriber Number Group Number Insured Name Patient Relationship to Insured Coverage Start Date Coverage End Date [facility] [address] [place] [address] [phone] [id number] YOKO HILLIARD Self - patient is the insured
== END 2024-09-14 10:14 | disposition home or self-care (01) ==
PROVIDERS: PCP Internal Medicine; Visit Provider Anesthesiology
DX: G89.4 Chronic pain syndrome (principal); M46.1 Sacroiliitis, not elsewhere classified; R22.41 Localized swelling, mass and lump, right lower limb; Z79.891 Long term (current) use of opiate analgesic; M25.562 Pain in left knee; M25.552 Pain in left hip; M53.3 Sacrococcygeal disorders, not elsewhere classified
CPT/HCPCS: 99213

== ENCOUNTER → 2024-09-14 09:54 | Outpatient (BNVA) | payer OTHER, SELFPAY | PROVIDERS: PCP Internal Medicine; Visit Provider Anesthesiology | DX: Z51.81 Encounter for therapeutic drug level monitoring (principal); F11.20 Opioid dependence, uncomplicated; M46.1 Sacroiliitis, not elsewhere classified; M25.562 Pain in left knee; M25.552 Pain in left hip; M53.3 Sacrococcygeal disorders, not elsewhere classified; R22.41 Localized swelling, mass and lump, right lower limb; G89.4 Chronic pain syndrome | CPT/HCPCS: 99212 ==

== ENCOUNTER 2024-10-12 09:59 | Outpatient (AMB) | payer OTHER, SELFPAY ==
--- NOTE | 2024-10-12 10:10 | A.OFFVIS_ITS ---
Vital Signs 3 10/12/24 10:17 Height 5 ft 3 in Weight 112 lb BMI 19.8 BP 146/83 H Blood Pressure Location Rt brachial Position Sitting Pulse 95 Pulse Source Pulse Oximeter Pulse Oximetry (%) 96 Oxygen Delivery Method Room Air Intake Visit Reasons: Pill count Intake Note: Essence comes in today for a pill count to oxycodone-acetaminophen, patient should have 26 tablets and presents with 30 tablets which she last took yesterday 10/11/24 at 4pm. Pain today 8/10 Die Out Worker Required: No Accompanied by: Self / Same As Patient Allergies aspirin Allergy (Verified 10/12/24 10:18) swelling,rash Sulfa (Sulfonamide Antibiotics) Allergy (Verified 10/12/24 10:18) oral swelling tetracycline Allergy (Verified 10/12/24 10:18) severe vomiting HPI Comments Details: Essence is in for the follow-up and pain medication pill count. Pain today as 7/10. Reports with motion at get increase to 8/10. Continues to complain on pain in the thoracic area on the right side as well as right hip and right knee. She was sent to physical therapy. She claims that she never was contacted by physical therapy to invite her for the appointment. We have to make sure that she will start physical therapy. I also allowed her to take after results cyclobenzaprine she was prescribed in the past help her acute pain. Pill count: She presented today with 30 pills her possession. She supposed to have 26 pills in her possession. This demonstrates responsible attitude to were the opioid medications. She denies complications or side effects from the opioid medications. She has IBS syndrome and opioid medications help her to avoid loose stool. She reports opioid medications allow her to stay active, perform better activities of daily living, improved social interaction. Prior: On diagnostic sacroiliac joint injection she reported 100% pain relief for 2 days with increased daily functioning, better mobility, sleep and social interactions. Patient reports after procedure she was able to complete all chores in her home and clean her house without significant discomfort in her right lower back, buttock and lateral hip. Patient reports no pain during those 2 days with sitting or driving. Past Procedures: 10/20/22: Right Diagnostic SIJ injection-100% pain relief for 2 days. Prior: On the MRI of the cervical spine there is not much of a significant changes. On the MRI of the lumbar spine at L4-5 level there is left shifted disc bulge with clumping of the nerves especially exiting L5. On physical exam some symptoms of sacroiliac joint pathology on the right as well as potential piriformis pathology on the right. SI joint fusion was offered to the patient if she will stop smoking. Unfortunately she continues to smoke. Her PHQ score is equal to 4. Her opioid risk addiction score is equal to 7. 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 Fibromyalgia Sacroiliitis Surgical History History of lumpectomy of right breast History of nasal surgery H/O tubal ligation Social History Alcohol intake: never Tobacco use type: Cigarette Cigarettes Per Day: 20 Review of Systems Const All systems reviewed & are unremarkable except as noted in HPI and below ENT Reports Normal hearing present Neuro Reports Normal hearing present and Denies confusion Psych Denies confusion Physical Exam Const General: cooperative, alert and awake; No confusion Orientation/consciousness: patient oriented x3 and No confusion Resp Effort & Inspection: able to speak in complete sentences, no audible wheezes and no cough Back/Spine/Pelvis Other: Positive Stinchfield, positive Steve, positive pelvic compression test. On the right. Neuro General: patient oriented x3 and No confusion Cranial nerves: Yes Normal hearing present Cognition (Neuro): normal cognition Extrem Other: On inspection of the right knee there is a small subcutaneous mass on the anterior surface of the right knee. The mass is tender on palpation. Psych Mental Status: mental status grossly normal Speech and movement: Clear speech present Affect: normal affect Attitude: cooperative Thought process: Normal thought process present Thought content: Normal thought content present and No Depressive thoughts present Insight: Good insight present (Psych) Judgement: Good judgement present (Psych) Results Reviewed Results Reviewed: 02/24/2015 Assessment & Plan Assessment & Plan (1) Chronic pain syndrome: Code(s): G89.4 - Chronic pain syndrome Category: Medical (2) Sacroiliitis: Code(s): M46.1 - Sacroiliitis, not elsewhere classified Category: Medical (3) Subcutaneous mass of right lower leg: Code(s): R22.41 - Localized swelling, mass and lump, right lower limb Category: Medical (4) Acute pain of left knee: Code(s): M25.562 - Pain in left knee Category: Medical (5) Acute pain of left hip: Code(s): M25.552 - Pain in left hip Category: Medical (6) Sacroiliac joint dysfunction: Code(s): M53.3 - Sacrococcygeal disorders, not elsewhere classified Category: Medical Plan Essence is very pleasant 63 years old female who is in our chronic opioid program. Her pill count is correct. She has right sacroiliitis. Unfortunately she smokes and we can not offer her sacroiliac joint fusion. Now complains on acute pain secondary to fall on ice. Was sent to physical therapy. Claims physical therapy never contacted her. She may find her own psychologist or psychiatrist who will accept her insurance to produce psychological evaluation in preparation for Her pill count is correct today. She is due for her new prescription on 10/25/2024 Last naloxone prescription is 08/29/2024. Next appointment I will make sure that she obtain her naltrexone. Next appointment in 1 month. Medications: Refilled 2 oxycodone-acetaminophen 5-325 mg (Percocet) Partial Fill upon patient request. 1 tab PO BID 30 days PRN 60 tabs 0RF pain (scale score 7-10) G89.4 - Chronic pain syndrome, Z79.891 - prison (current) use of opiate analgesic Coding Level of Care Code Est Pt Level 3 (97243) Diagnoses Chronic pain syndrome G89.4 Sacroiliitis M46.1 Subcutaneous mass of right lower leg R22.41 Acute pain of left knee M25.562 Acute pain of left hip M25.552 Sacroiliac joint dysfunction M53.3
[2024-10-12 10:17] VITALS: BP 146/83; PULSE 95; O2SAT 96; BMI 19.8
== END 2024-10-12 10:21 | disposition home or self-care (01) ==
LOC: HO.PMC 10:00
PROVIDERS: PCP Internal Medicine; Visit Provider Anesthesiology
DX: G89.4 Chronic pain syndrome (principal); M46.1 Sacroiliitis, not elsewhere classified; R22.41 Localized swelling, mass and lump, right lower limb; M25.562 Pain in left knee; M25.552 Pain in left hip; M53.3 Sacrococcygeal disorders, not elsewhere classified
CPT/HCPCS: 99213

== ENCOUNTER → 2024-10-12 09:59 | Outpatient (BNVA) | payer OTHER, SELFPAY | PROVIDERS: PCP Internal Medicine; Visit Provider Anesthesiology | DX: G89.4 Chronic pain syndrome (principal); M46.1 Sacroiliitis, not elsewhere classified; R22.41 Localized swelling, mass and lump, right lower limb; M25.562 Pain in left knee; M25.552 Pain in left hip; M53.3 Sacrococcygeal disorders, not elsewhere classified; Z51.81 Encounter for therapeutic drug level monitoring; Z79.891 Long term (current) use of opiate analgesic | CPT/HCPCS: 99212 ==

== ENCOUNTER 2024-11-09 09:47 | Outpatient (AMB) | payer OTHER, SELFPAY ==
--- NOTE | 2024-11-09 09:49 | A.OFFVIS_ITS ---
Vital Signs 11/09/24 09:57 Height 5 ft 3 in Weight 112 lb 6 oz BMI 19.9 BP 147/83 H Blood Pressure Location Rt brachial Position Sitting Pulse 87 Pulse Source Pulse Oximeter Pulse Oximetry (%) 96 Oxygen Delivery Method Room Air Intake Visit Reasons: Pill count Intake Note: Essence comes in today for a pill count to oxycodone-acetaminophen, patient should have 32 tablets and presents with 32 tablets which she last took today 11/09/24 at 7:30am. 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 Pain today as 6/10. Reports with motion at get increase to 8/10. She was sent to physical therapy. She will start physical therapy 11/24/2024 Pill count: She presented today with 32 pills her possession. She supposed to have 30 pills in her possession. This demonstrates responsible attitude to were the opioid medications. She denies complications or side effects from the opioid medications. She has IBS syndrome and opioid medications help her to avoid loose stool. She reports opioid medications allow her to stay active, perform better activities of daily living, improved social interaction. She picked up Narcan in the pharmacy. We discussed Narcan. We discussed the need of Narcan and the incidents when Narcan could be needed in her life. Prior: On diagnostic sacroiliac joint injection she reported 100% pain relief for 2 days with increased daily functioning, better mobility, sleep and social interactions. Patient reports after procedure she was able to complete all chore s in her home and clean her house without significant discomfort in her right lower back, buttock and lateral hip. Patient reports no pain during those 2 days with sitting or driving. Past Procedures: 10/20/22: Right Diagnostic SIJ injection-100% pain relief for 2 days. Prior: On the MRI of the cervical spine there is not much of a significant changes. On the MRI of the lumbar spine at L4-5 level there is left shifted disc bulge with clumping of the nerves especially exiting L5. On physical exam some symptoms of sacroiliac joint pathology on the right as well as potential piriformis pathology on the right. SI joint fusion was offered to the patient if she will stop smoking. Unfortunately she continues to smoke. Her PHQ score is equal to 4. Her opioid risk addiction score is equal to 7. 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 Fibromyalgia Sacroiliitis Surgical History History of lumpectomy of right breast History of nasal surgery H/O tubal ligation Social History Alcohol intake: never Tobacco use type: Cigarette Cigarettes Per Day: 20 Review of Systems Const All systems reviewed & are unremarkable except as noted in HPI and below ENT Reports Normal hearing present Neuro Reports Normal hearing present and Denies confusion Psych Denies confusion Physical Exam Vital Signs: Last Vital Signs Pulse 87 11/09/24 09:57 BP 147/83 H 11/09/24 09:57 Pulse Ox 96 11/09/24 09:57 Oxygen Delivery Method Room Air 11/09/24 09:57 BMI result Body Mass Index 19.9 Const General: cooperative, alert and awake; No confusion Orientation/consciousness: patient oriented x3 and No confusion Resp Effort & Inspection: able to speak in complete sentences, no audible wheezes and no cough Back/Spine/Pelvis Other: Positive Stinchfield, positive Steve, positive pelvic compression test. On the right. Neuro General: patient oriented x3 and No confusion Cranial nerves: Yes Normal hearing present Cognition (Neuro): normal cognition Psych Mental Status: mental status grossly normal Speech and movement: Clear speech present Affect: normal affect Attitude: cooperative Thought process: Normal thought process present Thought content: Normal thought content present and No Depressive thoughts present Insight: Good insight present (Psych) Judgement: Good judgement present (Psych) Assessment & Plan Assessment & Plan (1) Chronic pain syndrome: Code(s): G89.4 - Chronic pain syndrome Category: Medical (2) Sacroiliitis: Code(s): M46.1 - Sacroiliitis, not elsewhere classified Category: Medical (3) Acute pain of left hip: Code(s): M25.552 - Pain in left hip Category: Medical (4) Sacroiliac joint dysfunction: Code(s): M53.3 - Sacrococcygeal disorders, not elsewhere classified Category: Medical Plan Essence is very pleasant 63 years old female who is in our chronic opioid program. Her pill count is correct. She has right sacroiliitis. Unfortunately she smokes and we can not offer her sacroiliac joint fusion. Now complains on acute pain secondary to fall on ice. Was sent to physical therapy. Claims physical therapy never contacted her. She may find her own psychologist or psychiatrist who will accept her insurance to produce psychological evaluation in preparation for Her pill count is correct today. She is due for her new prescription on . Last naloxone prescription is 08/29/2024. She will start physical therapy on 11/24/2024. Next appointment in 1 month. Medications: Refilled oxycodone-acetaminophen 5-325 mg (Percocet) Partial Fill upon patient request. 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
[2024-11-09 09:57] VITALS: BP 147/83; PULSE 87; O2SAT 96; BMI 19.9
--- OUTSIDE RECORDS SUMMARY | 2024-11-09 11:18 | XMS_ITS | Patient Health Record ---
Author Organization [facility] Address [address] [place] [address] Care Team Providers Care Ignition Specialist Name Role Phone TONIO QUINTANA, [facility] Primary Care Provider Yolanda AGUSTÍN Lagunas Unavailable [phone] Reason For Referral No Information Plan Of Treatment Pending Test Test Name Order Date MM Digital Screening Mammogram 3D 2023 Insurance Providers Payer Name Payer Address Payer Phone Subscriber Number Group Number Insured Name Patient Relationship to Insured Coverage Start Date Coverage End Date [facility] [address] [place] [id number] YOKO HILLIARD Self - patient is the insured
--- OUTSIDE RECORDS SUMMARY | 2024-11-09 11:18 | XMS_ITS ---
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 * HPI: ???Constitutional:? 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 She is new to this practice, having received previous prepared foods service team member care . She has been in state [...] exercises x days/week by . * ROS:?Annual Agricultural Technical Officer Exam ROS:?Bowel habit changes?denies.?Bladder symptoms?denies.?Vaginal discharge, unusual?denies.?Vaginal itch or odor?denies.?weight or appetite changes?denies.?Chest pains, SOB?denies.?depression?denies.?Breast:?Denies?Breast lump.?Denies?Nipple discharge.?Hematology:?Denies?Swollen glands.?Skin:?Patient denies?changing moles.?Psychiatric:?Denies?Anxiety.? * Medical History:? * Agricultural Technical Officer History:?Mammogram:?01/12/22.? Objective: * Vitals:? * Examination: ???General Examination: ?GENERAL APPEARANCE:?in no acute distress, well developed, well nourished, account installation specialist present in room.?HEAD:?normocephalic, atraumatic.?NECK/THYROID:?neck supple, full range [...] * Follow Up:?1 Year (Reason: Y early Agricultural Technical Officer Exam) * Images: Billing Information: * Visit Code:? 05063 Preventive Care New Pt. Age 40-64. * Procedure Codes:? 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 She is new to this practice, having received previous prepared foods service team member care . She has been in state [...] of breast cancer. Her last mammogram was 6/20/22. She does have a family history of colon cancer. She a has had a colonoscopy. The last colonoscopy was . The patient does exercise. She exercises x days/week by . Examination Category Sub-Category Detail Notes Category Not es General Examination GENERAL APPEARANCE: in no ac shereen distress, well developed, well nourished, account installation specialist present in room HEAD: normocephalic, atrau matic [...]
== END 2024-11-09 10:07 | disposition home or self-care (01) ==
LOC: HO.PMC 09:47
PROVIDERS: PCP Internal Medicine; Visit Provider Anesthesiology
DX: G89.4 Chronic pain syndrome (principal); M46.1 Sacroiliitis, not elsewhere classified; M25.552 Pain in left hip; Z79.891 Long term (current) use of opiate analgesic
CPT/HCPCS: 99214

== ENCOUNTER → 2024-11-09 09:47 | Outpatient (BNVA) | payer OTHER, SELFPAY | PROVIDERS: PCP Internal Medicine; Visit Provider Anesthesiology | DX: G89.4 Chronic pain syndrome (principal); M46.1 Sacroiliitis, not elsewhere classified; M25.552 Pain in left hip; M53.3 Sacrococcygeal disorders, not elsewhere classified; Z51.81 Encounter for therapeutic drug level monitoring; Z79.891 Long term (current) use of opiate analgesic | CPT/HCPCS: 99212 ==

== ENCOUNTER 2024-12-07 09:51 | Outpatient (AMB) | payer OTHER, SELFPAY ==
--- NOTE | 2024-12-07 09:58 | A.OFFVIS_ITS ---
Vital Signs 12/07/24 10:04 Height 5 ft 3 in Weight 110 lb BMI 19.5 BP 147/76 H Blood Pressure Location Rt brachial Position Sitting Pulse 80 Pulse Source Pulse Oximeter Pulse Oximetry (%) 96 Oxygen Delivery Method Room Air Intake Visit Reasons: Pill count Intake Note: Essence comes in today for a pill count to oxycodone-acetaminophen, patient should have 42 tablets and presents with 52 tablets which she last took today 12/07/24 at 8am. 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 Pain today as 6/10 more severe than usual she reports that weather changes aggravate her pain. Her pill count is correct she supposed to have 42 pills in her possession. She presented with 52 pills in her possession. She denies side effects of the opioid medications she denies constipation, she has IBS with diarrhea component. She started physical therapy she had an evaluation there only. She will co ntinue with physical therapy. Prior: On diagnostic sacroiliac joint injection she reported 100% pain relief for 2 days with increased daily functioning, better mobility, sleep and social interactions. Patient reports after procedure she was able to complete all chores in her home and clean her house without significant discomfort in her right lower back, buttock and lateral hip. Patient reports no pain during those 2 days with sitting or driving. Past Procedures: 10/20/22: Right Diagnostic SIJ injection-100% pain relief for 2 days. Prior: On the MRI of the cervical spine there is not much of a significant changes. On the MRI of the lumbar spine at L4-5 level there is left shifted disc bulge with clumping of the nerves especially exiting L5. On physical exam some symptoms of sacroiliac joint pathology on the right as well as potential piriformis pathology on the right. SI joint fusion was offered to the patient if she will stop smoking. Unfortunately she continues to smoke. Her PHQ score is equal to 4. Her opioid risk addiction score is equal to 7. Her total risk is equal to 11.mild risk for opioid addiction [facility] Medical History Environmental and seasonal allergies Allergy to mold Neuroma of foot Chronic pain syndrome USP (current) use of opiate analgesic Fibromyalgia Sacroiliitis Surgical History History of lumpectomy of right breast History of nasal surgery H/O tubal ligation Social History Alcohol intake: never Tobacco use type: Cigarette Cigarettes Per Day: 20 Review of Systems Const All systems reviewed & are unremarkable except as noted in HPI and below ENT Reports Normal hearing present Neuro Reports Normal hearing present and Denies confusion Psych Denies confusion Physical Exam Vital Signs: Last Vital Signs Pulse 80 12/07/24 10:04 BP 147/76 H 12/07/24 10:04 Pulse Ox 96 12/07/24 10:04 Oxygen Delivery Method Room Air 12/07/24 10:04 BMI result Body Mass Index 19.5 Const General: cooperative, alert and awake; No confusion Orientation/consciousness: patient oriented x3 and No confusion Resp Effort & Inspection: able to speak in complete sentences, no audible wheezes and no cough Back/Spine/Pelvis Other: Positive Stinchfield, positive Steve, positive pelvic compression test. On the right. Neuro General: patient oriented x3 and No confusion Cranial nerves: Yes Normal hearing present Cognition (Neuro): normal cognition Psych Mental Status: mental status grossly normal Speech and movement: Clear speech present Affect: normal affect Attitude: cooperative Thought process: Normal thought process present Thought content: Normal thought content present and No Depressive thoughts present Insight: Good insight present (Psych) Judgement: Good judgement present (Psych) Assessment & Plan Assessment & Plan (1) Chronic pain syndrome: Code(s): G89.4 - Chronic pain syndrome Category: Medical (2) Sacroiliitis: Code(s): M46.1 - Sacroiliitis, not elsewhere classified Category: Medical (3) Acute pain of left hip: Code(s): M25.552 - Pain in left hip Category: Medical (4) Sacroiliac joint dysfunction: Code(s): M53.3 - Sacrococcygeal disorders, not elsewhere classified Category: Medical Plan In the past we discussed possibility of treating her pain with cure on X/freedom PNS and the patient can not afford psychological evaluation with [facility]. She was not able to find a psychologist who would be giving her psychological evaluation. Her pill count is correct today. She is due for her new prescription on 12/28/2024 Last naloxone prescription is 08/29/2024. She started physical therapy she had an evaluation now she will continue physical therapy and home exercise program. Medications: Refilled oxycodone-acetaminophen 5-325 mg (Percocet) Partial Fill upon patient request. 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
[2024-12-07 10:04] VITALS: BP 147/76; PULSE 80; O2SAT 96; BMI 19.5
--- OUTSIDE RECORDS SUMMARY | 2024-12-07 10:45 | XMS_ITS ---
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 * HPI: ???Constitutional:? 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 She is new to this practice, having received previous mission planner care . She has been in state [...] exercises x days/week by . * ROS:?Annual Computer Animator Exam ROS:?Bowel habit changes?denies.?Bladder symptoms?denies.?Vaginal discharge, unusual?denies.?Vaginal itch or odor?denies.?weight or appetite changes?denies.?Chest pains, SOB?denies.?depression?denies.?Breast:?Denies?Breast lump.?Denies?Nipple discharge.?Hematology:?Denies?Swollen glands.?Skin:?Patient denies?changing moles.?Psychiatric:?Denies?Anxiety.? * Medical History:? * Computer Animator History:?Mammogram:?01/12/22.? Objective: * Vitals:? * Examination: ???General Examination: ?GENERAL APPEARANCE:?in no acute distress, well developed, well nourished, flight control tower operator present in room.?HEAD:?normocephalic, atraumatic.?NECK/THYROID:?neck supple, full range [...] * Follow Up:?1 Year (Reason: Y early Computer Animator Exam) * Images: Billing Information: * Visit Code:? 87913 Preventive Care New Pt. Age 40-64. * Procedure Codes:? * Electronic signature of AGUSTÍN ROMO MD on 12/07/2024 at 10:45 AM EDT Sign off status: Pending * Provider:?AGUSTÍN ROMO MD Date:?2023 Generated for James breaux/Kathie/eTransmitting on:?12/07/2024 10:45 AM EDT History and Physical Notes * HPI (History of Present Illness) Category Sub-Category Detail Notes Category Not es Constitutional Essence is a 63yo GxPx who presents for her yearly mission planner exam. She is new to this practice, having received previous mission planner care . She has been in state [...] General Examination GENERAL APPEARANCE: in no ac venetie ira distress, well developed, well nourished, flight control tower operator present in room HEAD: normocephalic, atrau matic [...]
--- OUTSIDE RECORDS SUMMARY | 2024-12-07 10:46 | XMS_ITS | Patient Health Record ---
Author Organization [facility] Address [address] [place] [address] Care Team Providers Care Setter Cold Rolling Machine Name Role Phone TONIO QUINTANA, [facility] Primary Care Provider Yolanda AGUSTÍN Lagunas Unavailable [phone] Reason For Referral No Information Plan Of Treatment Pending Test Test Name Order Date MM Digital Screening Mammogram 3D 2023 Insurance Providers Payer Name Payer Address Payer Phone Subscriber Number Group Number Insured Name Patient Relationship to Insured Coverage Start Date Coverage End Date [facility] [address] [place] [address] [phone] [id number] YOKO HILLIARD Self - patient is the insured
== END 2024-12-07 10:14 | disposition home or self-care (01) ==
LOC: HO.PMC 09:52
PROVIDERS: PCP Internal Medicine; Visit Provider Anesthesiology
DX: G89.4 Chronic pain syndrome (principal); M46.1 Sacroiliitis, not elsewhere classified; M25.552 Pain in left hip; M53.3 Sacrococcygeal disorders, not elsewhere classified
CPT/HCPCS: 99213

== ENCOUNTER → 2024-12-07 09:51 | Outpatient (BNVA) | payer OTHER, SELFPAY | PROVIDERS: PCP Internal Medicine; Visit Provider Anesthesiology | DX: G89.4 Chronic pain syndrome (principal); M46.1 Sacroiliitis, not elsewhere classified; M25.552 Pain in left hip; M53.3 Sacrococcygeal disorders, not elsewhere classified; Z51.81 Encounter for therapeutic drug level monitoring; Z79.891 Long term (current) use of opiate analgesic | CPT/HCPCS: 99212 ==

== ENCOUNTER 2025-01-31 13:11 | Outpatient (RCR) | payer OTHER, SELFPAY | END 2025-03-03 09:06 | disposition home or self-care (01) | LOC: HO.PT 13:11 | PROVIDERS: PCP Internal Medicine; Visit Provider Anesthesiology | DX: M25.562 Pain in left knee (principal); M25.552 Pain in left hip; M53.3 Sacrococcygeal disorders, not elsewhere classified; M46.1 Sacroiliitis, not elsewhere classified; G89.4 Chronic pain syndrome | CPT/HCPCS: 97110; 97140; 97162; 97535 ==

== ENCOUNTER 2025-02-07 09:57 | Outpatient (AMB) | payer OTHER, SELFPAY ==
--- NOTE | 2025-02-07 10:16 | A.OFFVIS_ITS ---
Intake Visit Reasons: Pill Count/ Random UDS Intake Note: patient states she last took her oxycodone acetaminopheat 8am today 02/07/25. Lyndsey says she should have 46 pills, she presented with 48 Well Treatment Offsider Required: No Allergies aspirin Allergy (Verified 02/07/25 10:16) swelling,rash Sulfa (Sulfonamide Antibiotics) Allergy (Verified 02/07/25 10:16) oral swelling tetracycline Allergy (Verified 02/07/25 10:16) severe vomiting HPI Comments Details: Essence is in for the follow-up and pain medication pill count. Pain today as 9/10 more severe than usual she reports that weather changes aggravate her pain. We discussed possibility of the peripheral nerve stimulation of the sacroiliac joint innervation again today. She got new primary care physician. This primary care physician we will refer her to psychologist to obtain psychological evaluation. Her pill count today is correct. She presented with 48 pills in her possession. She supposed to have 46 pills in her possession. It demonstrates responsible attitude to the opioid medications. She denies side effects of the opioid medications she denies constipation, she has IBS with diarrhea component. She started physical therapy she had an evaluation there only. She will continue with physical therapy. Prior: On diagnostic sacroiliac joint injection she reported 100% pain relief for 2 days with increased daily functioning, better mobility, sleep and social interactions. Patient reports after procedure she was able to complete all chores in her home and clean her house without significant discomfort in her ri ght lower back, buttock and lateral hip. Patient reports no pain during those 2 days with sitting or driving. Past Procedures: 10/20/22: Right Diagnostic SIJ injection-100% pain relief for 2 days. Prior: On the MRI of the cervical spine there is not much of a significant changes. On the MRI of the lumbar spine at L4-5 level there is left shifted disc bulge with clumping of the nerves especially exiting L5. On physical exam some symptoms of sacroiliac joint pathology on the right as well as potential piriformis pathology on the right. SI joint fusion was offered to the patient if she will stop smoking. Unfortunately she continues to smoke. Her PHQ score is equal to 4. Her opioid risk addiction score is equal to 7. 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 Fibromyalgia Sacroiliitis Surgical History History of lumpectomy of right breast History of nasal surgery H/O tubal ligation Social History Alcohol intake: never Tobacco use type: Cigarette Cigarettes Per Day: 20 Review of Systems Const All systems reviewed & are unremarkable except as noted in HPI and below ENT Reports Normal hearing present Neuro Reports Normal hearing present and Denies confusion Psych Denies confusion Physical Exam Const General: cooperative, alert and awake; No confusion Orientation/consciousness: patient oriented x3 and No confusion Resp Effort & Inspection: able to speak in complete sentences, no audible wheezes and no cough Back/Spine/Pelvis Other: Positive Stinchfield, positive Steve, positive pelvic compression test. On the right. Neuro General: patient oriented x3 and No confusion Cranial nerves: Yes Normal hearing present Cognition (Neuro): normal cognition Psych Mental Status: mental status grossly normal Speech and movement: Clear speech present Affect: normal affect Attitude: cooperative Thought process: Normal thought process present Thought content: Normal thought content present and No Depressive thoughts present Insight: Good insight present (Psych) Judgement: Good judgement present (Psych) Assessment & Plan Assessment & Plan (1) Chronic pain syndrome: Code(s): G89.4 - Chronic pain syndrome Category: Medical (2) Sacroiliitis: Code(s): M46.1 - Sacroiliitis, not elsewhere classified Category: Medical (3) Acute pain of left hip: Code(s): M25.552 - Pain in left hip Category: Medical (4) Sacroiliac joint dysfunction: Code(s): M53.3 - Sacrococcygeal disorders, not elsewhere classified Category: Medical Plan In the past we discussed possibility of treating her pain with cure on X/freedom PNS and the patient can not afford psychological evaluation with [employer] [facility]. Her insurance now was changed and her primary care physician is also new. She stated that the primary care physician will refer her to psychologist. Her pill count is correct today. She is due for her new prescription on 03/02/2025. Last naloxone prescription is 08/29/2024. She continues physical therapy and home exercise program. Medications: Refilled oxycodone-acetaminophen 5-325 mg (Percocet) Partial Fill upon patient request. 1 tab PO BID PRN 60 tabs 0RF pain (scale score 7-10) 30 days G89.4 - Chronic pain syndrome, Z79.891 - senior care (curren t) use of opiate analgesic Coding Level of Care Code Est Pt Level 3 (97520) Diagnoses Chronic pain syndrome G89.4 Sacroiliitis M46.1 Acute pain of left hip M25.552 Sacroiliac joint dysfunction M53.3
--- OUTSIDE RECORDS SUMMARY | 2025-02-07 10:32 | XMS_ITS | Patient Health Record ---
Author Organization [facility] Address [address] [place] [address] Care Team Providers Care Director Media Name Role Phone TONIO QUINTANA, [facility] Primary Care Provider Yolanda AGUSTÍN Lagunas Unavailable [phone] Reason For Referral No Information Plan Of Treatment Pending Test Test Name Order Date MM Digital Screening Mammogram 3D 2023 Insurance Providers Payer Name Payer Address Payer Phone Subscriber Number Group Number Insured Name Patient Relationship to Insured Coverage Start Date Coverage End Date [facility] [address] [place] [address] [phone] [id number] YOKO HILLIARD Self - patient is the insured
== END 2025-02-07 10:45 | disposition home or self-care (01) ==
LOC: HO.PMC 09:58
PROVIDERS: PCP Internal Medicine; Visit Provider Anesthesiology
DX: G89.4 Chronic pain syndrome (principal); M46.1 Sacroiliitis, not elsewhere classified; M25.552 Pain in left hip; M53.3 Sacrococcygeal disorders, not elsewhere classified
CPT/HCPCS: 99213

== ENCOUNTER → 2025-02-07 09:57 | Outpatient (BNVA) | payer OTHER, SELFPAY | PROVIDERS: PCP Internal Medicine; Visit Provider Anesthesiology | DX: Z51.81 Encounter for therapeutic drug level monitoring (principal); M46.1 Sacroiliitis, not elsewhere classified; M25.552 Pain in left hip; M53.3 Sacrococcygeal disorders, not elsewhere classified; G89.4 Chronic pain syndrome; Z79.891 Long term (current) use of opiate analgesic | CPT/HCPCS: 99212 ==

== ENCOUNTER 2025-03-15 10:59 | Outpatient (AMB) | payer OTHER, SELFPAY ==
--- NOTE | 2025-03-15 11:10 | A.OFFVIS_ITS ---
Vital Signs 03/15/25 11:11 Weight 110 lb BP 142/75 H Blood Pressure Location Lt brachial Position Sitting Respiration 18 Pulse 93 Pulse Oximetry (%) 100 Oxygen Delivery Method Room Air Intake Visit Reasons: Pill Count Intake Note: pt states she last took her oxycodone acetaminophen at 9am 8.. [facility] said she should have 40 pills and she presented with 38. 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 In the past we discussed possibility of the peripheral nerve stimulation of the sacroiliac joint innervation again today. She got new primary care physician. This primary care physician we will refer her to psychologist to obtain psychological evaluation. Her pill count today is technically correct however patient is 2 pills short. I explained to the patient that she needs to watch carefully on her intake of the opioid medications. She told me that she forgot to pills at home. I told her that it is in her contract that she is responsible for bringing all of her medications for the date of the appointment. Today she presented with 38 pills in her possession she supposed to have 40 pills in her possession. It is within her allowance of the day. I will prescribe her medication today she is due for new prescription on 04/04/2025. She denies side effects of the opioid medications she denies constipation, she has IBS with diarrhea component. She started physical therapy she had an evaluation there only. She will continue with physical therapy. Prior: On diagnostic sacroiliac joint injection she reported 100% pain relief for 2 days with increased daily functioning, better mobility, sleep and social interactions. Patient reports after procedure she was able to complete all chores in her home and clean her house without significant discomfort in her right lower back, buttock and lateral hip. Patient reports no pain during those 2 days with sitting or driving. Past Procedures: 10/20/22: Right Diagnostic SIJ injection-100% pain relief for 2 days. Prior: On the MRI of the cervical spine there is not much of a significant changes. On the MRI of the lumbar spine at L4-5 level there is left shifted disc bulge with clumping of the nerves especially exiting L5. On physical exam some symptoms of sacroiliac joint pathology on the right as well as potential piriformis pathology on the right. SI joint fusion was offered to the patient if she will stop smoking. Unfortunately she continues to smoke. Her PHQ score is equal to 4. Her opioid risk addiction score is equal to 7. 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 Fibromyalgia Sacroiliitis Surgical History History of lumpectomy of right breast History of nasal surgery H/O tubal ligation Social History Alcohol intake: never Tobacco use type: Cigarette Cigarettes Per Day: 20 Review of Systems Const All systems reviewed & are unremarkable except as noted in HPI and below ENT Reports Normal hearing present Neuro Reports Normal hearing present and Denies confusion Psych Denies confusion Physical Exam Vital Signs: Last Vital Signs Pulse 93 03/15/25 11:11 Resp 18 03/15/25 11:11 BP 142/75 H 03/15/25 11:11 Pulse Ox 100 03/15/25 11:11 Oxygen Delivery Method Room Air 03/15/25 11:11 Const General: cooperative, alert and awake; No confusion Orientation/consciousness: patient oriented x3 and No confusion Resp Effort & Inspection: able to speak in complete sentences, no audible wheezes and no cough Back/Spine/Pelvis Other: Positive Stinchfield, positive Steve, positive pelvic compression test. On the right. Neuro General: patient oriented x3 and No confusion Cranial nerves: Yes Normal hearing present Cognition (Neuro): normal cognition Psych Mental Status: mental status grossly normal Speech and movement: Clear speech present Affect: normal affect Attitude: cooperative Thought process: Normal thought process present Thought content: Normal thought content present and No Depressive thoughts present Insight: Good insight present (Psych) Judgement: Good judgement present (Psych) Assessment & Plan Assessment & Plan (1) Chronic pain syndrome: Code(s): G89.4 - Chronic pain syndrome Category: Medical (2) Sacroiliitis: Code(s): M46.1 - Sacroiliitis, not elsewhere classified Category: Medical (3) Acute pain of left hip: Code(s): M25.552 - Pain in left hip Category: Medical (4) Sacroiliac joint dysfunction: Code(s): M53.3 - Sacrococcygeal disorders, not elsewhere classified Category: Medical Plan In the past we discussed possibility of treating her pain with cure on X/freedom PNS and the patient can not afford psychological evaluation with [employer]. Her insurance now was changed and her primary care physician is also new. She stated that the primary care physician will refer her to psychologist. Her pill count is technically correct today although she has 2 pills short.. This was discussed as above. She is due for her new prescription on 04/04/2025 Last naloxone prescription is 08/29/2024. She continues home exercise program. Medications: Refilled oxycodone-acetaminophen 5-325 mg (Percocet) Partial Fill upon patient request. 1 tab PO BID PRN 60 tabs 0RF pain (scale score 7-10) 30 days G89.4 - Chronic pain syndrome, Z79.891 - retirement (current) use of opiate analgesic Coding Level of Care Code Est Pt Level 3 (59012) Diagnoses Chronic pain syndrome G89.4 Sacroiliitis M46.1 Acute pain of left hip M25.552 Sacroiliac joint dysfunction M53.3
[2025-03-15 11:11] VITALS: BP 142/75; PULSE 93; RESP 18; O2SAT 100
--- OUTSIDE RECORDS SUMMARY | 2025-03-15 12:35 | XMS_ITS | Clinical Summary ---
Author Organization [facility] Address [address] [place] [id number] Phone Care Team Providers Care Water Plant Pump Operator Supervisor Name Role Phone Raymond Aly MD Primary Care Provider [phone] Allergies Active Allergy Reactions Criticality Noted Date Comments Aspirin 10/30/2020 Mold Extracts 10/30/2020 Sulfa (Sulfonamide Antibiotics) 0 01/2021 Tetracycline 10/30/2020 Medications fluticasone propionate (FLOVENT HFA) 220 mcg/actuation inhaler Inhale 1 puff into the lungs 2 (two) times a day as needed. Active albuterol 90 mcg/actuation inhaler Inhale 2 puffs into the lungs every 4 (four) hours as needed. Active EPINEPHrine 0.3 mg/0.3 mL auto-injector Inject 0.3 mg into the muscle as needed. Active montelukast (SINGULAIR) 10 mg tablet Take 10 mg by mouth nightly at bedtime. Active DULoxetine (CYMBALTA) 60 MG capsule Take 60 mg by mouth daily. Active oxyCODONE-aceta minophen (PERCOCET) 5-325 mg per tablet Take 1 tablet by mouth 2 (two) times a day as needed. Active diphenhydrAMINE (BENADRYL) 25 mg capsule Take 25 mg by mouth nightly at bedtime. Active cetirizine (ZYRTEC) 10 MG tablet Take 10 mg by mouth daily. Active pseudoephedrine (SUDAFED) 30 MG tablet Take 30 mg by mouth every 4 (four) hours as needed. Active triamcinolone (NASACORT AQ) 55 mcg/actuation nasal inhaler 2 sprays by Nasal route daily. Active gabapentin (NEURONTIN) 300 MG capsule Take 300 mg by mouth 3 (three) times a day. Active cyclobenzaprine (FLEXERIL) 10 MG tablet Take 10 mg by mouth 2 (two) times a day as needed. Active Active Problems Problem Noted Date Diagnosed Date Underweight 08/26/2021 Assessment & Plan (08/26/2021 11:11 AM EST): Eat well-balanced nutritionally diet in 4-5 smaller meals daily. I reviewed with her importance of maintaining weight in ideal range for her height especially after menopause when she is at greater risk for progressive bone density loss additionally reduced by chronic cigarette smoking. Neck pain 01/30/2021 Assessment & Plan (02/02/2021 10:37 PM EDT): Proper posture. Appropriate neck support during the day and for nighttime. Avoid extended neck bending without breaks. Review ergonomically workstation. Use warm pack versus warm shower prior to gentle stretching, ROM and muscle strengthening exercises-examples of exercises and pictures with detailed instructions printed for home use. She may benefit from topical cream versus patch 2-3 times daily and if needed at bedtime. May need to consider formal PT if above measures unsuccessful. Pain in both hands 10/30/2020 Assessment & Plan (11/02/2020 8:49 PM EDT): Joint protection, energy conservation. Gentle, regular exercise routine-examples of exercises printed with pictures and detailed instructions. Avoid falls, injuries, overuse. To reduce the swelling she was advised to use compression gloves particularly for nighttime. She may benefit from topical cream such as Arnica, Biofreeze, Aspercreme versus medicated patches such as salonpas, icy hot patch 2-3 times daily and if necessary at bedtime x 3 weeks. Allergy to mold 10/30/2020 Assessment & Plan (11/02/2020 8:43 PM EDT): Avoid exposure to to black mold. Continue close follow-up and desensitization with treating maritime pilot as scheduled. Fibromyalgia 10/30/2020 Assessment & Plan (08/25/2021 11:01 AM EST): We discussed the diagnosis of fibromyalgia, its natural history, and treatment. Specifically, we discussed that treatment requires many interventions and recognition that we are often unable to get patients completely pain free. Management of fibromyalgia requires patient engagement to address any underlying depression, anxiety, or sleep disorder. Further, patients are encouraged to engage in regular physical activity. Some studies have suggested that Kody Chi is effective. Other physical activity may including water-based aerobics, regular walking, biking, swimming, gentle yoga, Pilates etc. In terms of pharmacotherapy, there are many options, including tricyclic antidepressants, duloxetine, gabapentin or pregabalin, and cyclobenzaprine as well as other similar medications to those listed. In this case, the patient might try continue current pharmacologic therapy in combination with mindfulness approach as described in the book written by Dr Troy Benedict [facility] Assessment & Plan (02/02/2021 10:35 PM EDT): We discussed the diagnosis of fibromyalgia, its natural history, and treatment. Specifically, we discussed that treatment requires many interventions and recognition that we are often unable to get patients completely pain free. Management of fibromyalgia requires patient engagement to address any underlying depression, anxiety, or sleep disorder. Further, patients are encouraged to engage in regular physical activity. Some studies have suggested that Kody Chi is effective. Other physical activity may including water-based aerobics, regular walking, biking, swimming, gentle yoga, Pilates etc. In terms of pharmacotherapy, there are many options, including tricyclic antidepressants, duloxetine, gabapentin or pregabalin, and cyclobenzaprine as well as other similar medications to those listed. In this case, the patient might try continue current pharmacologic therapy in combination with mindfulness approach as described in the book written by Dr Troy Benedict [facility] Assessment & Plan (11/02/2020 8:38 PM EDT): We discussed the diagnosis of fibromyalgia, its natural history, and treatment. Specifically, we discussed that treatment requires many interventions and recognition that we are often unable to get patients completely pain free. Management of fibromyalgia requires patient engagement to address any underlying depression, anxiety, or sleep disorder. Further, patients are encouraged to engage in regular physical activity. Some studies have suggested that Kody Chi is effective. Other physical activity may including water-based aerobics, regular walking, biking, sleeping, gentle yoga, Pilates etc. In terms of pharmacotherapy, there are many options, including tricyclic antidepressants, duloxetine, gabapentin or pregabalin, and cyclobenzaprine as well as other similar medications to those listed. In this case, the patient might try continue current pharmacologic therapy in combination with mindfulness approach as described in the book written by Dr Troy Benedict [facility] On SSRI therapy 10/30/2020 Assessment & Plan (08/25/2021 11:01 AM EST): Monitor for mood swings, increased muscle rigidity and temperature intolerance. Assessment & Plan (01/30/2021 12:20 PM EDT): Monitor for mood swings, increased muscle rigidity and temperature intolerance. Assessment & Plan (11/02/2020 8:43 PM EDT): Monitor for mood swings, increased muscle rigidity and temperature intolerance. Numbness in both hands 10/30/2020 Assessment & Plan (11/02/2020 8:42 PM EDT): Keep diary of frequency, severity, length of episodes and modifying factors. Raynaud's disease without gangrene 10/30/2020 Assessment & Plan (08/26/2021 11:11 AM EST): Work diligently on complete smoking cessation ZAYRA. Keep warm, dress in layers. Optimize stress management strategies. Avoid vasoconstrictors in OTC products for cold/flu and sinus. Assessment & Plan (01/30/2021 12:20 PM EDT): Keep warm, dress in layers. Optimize stress management strategies. Avoid vasoconstrictors in OTC products for cold/flu and sinus. Assessment & Plan (11/02/2020 8:25 PM EDT): Work on complete cigarette smoking cessation ZAYRA. Keep warm, dress in layers. Optimize stress management strategies. Avoid vasoconstrictors in OTC products for cold/flu and sinus. Vitamin D insufficiency 10/30/2020 Assessment & Plan (11/02/2020 8:25 PM EDT): Serum level requested to make sure that she does not require additional supplementation. Weight loss 10/30/2020 Assessment & Plan (11/02/2020 8:26 PM EDT): Encouraged to eat well-balanced nutritionally diet in 3-6 smaller meals rather than 2-3 larger daily. Importance of keeping body weight in ideal range for her height reviewed and strongly encouraged. Tobacco dependence 10/30/2020 Assessment & Plan (08/26/2021 11:09 AM EST): I have spent at least 3 minutes on encouraging her to work on complete smoking cessation by reducing number of cigarettes smoked daily by 1 cigarette every week and be ready for dealing with cravings by stocking finger size healthy snacks such as small carrots, cucumbers, celery sticks etc. I reviewed with her multiple benefits of complete smoking cessation including but not limited to reducing the risk of developing lung cancer, bladder cancer, cervical cancer, stroke and heart attack. Additionally she will reduce the frequency and severity of Raynaud's phenomenon, improve smell and taste sensation. I provided her with pamphlet on quit smoking study offered by the Division of Preventive and Behavioral Medicine of [facility]. Research coordinator: Gabby Tovar at [phone]. When asked how she would spend saved money from not buying cigarettes she is planning to start college fund for her now 4-year old granddaughter Darinel. I commented that I hope in 6 months there will be nice chunk of money there already. Assessment & Plan (02/02/2021 10:36 PM EDT): I have spent at least 3 minutes on encouraging him to work on complete smoking cessation by reducing number of cigarettes smoked daily by 1 cigarette every week and be ready for dealing with cravings by stocking finger size healthy snacks such as small carrots, cucumbers, celery sticks etc. I reviewed with her multiple benefits of complete smoking cessation including but not limited to reducing the risk of developing lung cancer, bladder cancer, cervical cancer, stroke and heart attack. Additionally she will reduce the frequency and severity of Raynaud's phenomenon, improve smell and taste sensation. I provided her with pamphlet on quit smoking study offered by the Division of Preventive and Behavioral Medicine of [facility]. Research coordinator: Gabby Tovar at [phone]. She plans to quit within the next 6 months-hopefully by the end of calendar 2020. Assessment & Plan (11/02/2020 8:41 PM EDT): I have spent at least 3 minutes on encouraging him to work on complete smoking cessation by reducing number of cigarettes smoked daily by 1 cigarette every week and be ready for dealing with cravings by stocking finger size healthy snacks such as small carrots, cucumbers, celery sticks etc. I reviewed with her multiple benefits of complete smoking cessation including but not limited to reducing the risk of developing lung cancer, bladder cancer, cervical cancer, stroke and heart attack. Additionally she will reduce the frequency and severity of Raynaud's phenomenon, improve smell and taste sensation. I provided her with pamphlet on quit smoking study offered by the Division of Preventive and Behavioral Medicine of [facility]. Research coordinator: Gabby Tovar at [phone]. Family History Medical History Relation Comments Asthma Mother Autoimmune disease Mother Relation Status Comments Mother Social History Tobacco Use Types Packs/Day Years Used Date Smoking Tobacco: Every Day Smokeless Tobacco: Never Education Answer Date Recorded Are you interested in more education? Not on darion e 11/20/2022 Are you concerned about learning? Not on file 11/20/2022 No 11/20/2022 No 11/20/2022 Digital Access Answer Date Recorded No 12/19/2022 No 12/19/2022 Reliable internet access at home? Not on file 12/19/2022 Device with a working camera? Not on file Comments Unknown Sex and Gender Information Value Date Recorded Sex Assigned at Not on file Legal Sex Female 12:30 PM EDT Gender Identity Not on file Sexual Orientation Not on file Last Filed Vital Signs Vital Sign Reading Time Taken Comments Blood Pressure 120/72 08/25/2021 10:41 AM EST Pulse - - Temperature - - Respiratory Rate - - Oxygen Saturation - - Inhaled Oxygen Concentration - - Weight 50 kg (110 lb 3.2 oz) 08/25/2021 10:41 AM EST with boots Height 160 cm (5' 3 ) 08/25/2021 10:41 AM EST Body Mass Index 19.52 08/25/2021 10:41 AM EST Plan of Treatment Health Maintenance Due Date Last Done Comments LIPID PANEL 1962 DEPRESSION SCREENING 1974 SMOKING Hx and SMOKELESS TOBACCO SCREENING 1975 HEPATITIS C SCREENING 1980 HIV ONE-TIME SCREENING (18-6 5 YEARS) 1980 PAP SMEAR 1983 MAMMOGRAM 2002 COLOGUARD 2007 COLONOSCOPY 2007 COLORECTAL CANCER SCREENING 2007 FIT TEST 2007 FOBT 2007 SIGMOIDOSCOPY 2007 VIRTUAL COLONOSCOPY 2007 ZOSTER VACCINES (2 of 2) 04/20/2018 02/23/2018 PNEUMOCOCCAL VACCINES (50+ years) (2 of 2 - PCV) 02/23/2019 02/23/2018 Adult Td,Tdap Booster 10/13/2021 10/14/2011 COVID-19 VACCINE (4 - 2023-2 5 season) 2024 08/15/2021, 12/12/2020, 11/21/2020 RSV VACCINE (1 - 1-dose 75+ series) 2037 HEPATITIS A VACCINES Aged Out No long er eligible based on patient's age to complete this topic HIB VACCINES Aged Out No longer eligi ble based on patient's age to complete this topic MENINGOCOCCAL VACCINES (ACWY) Aged Out No longer eligible based on patient's age to complete this topic MENINGOCOCCAL VACCINES (B) Aged Out N o longer eligible based on patient's age to complete this topic Medical Devices Not on file Insurance [facility]SS [facility] [employer] [facility] [address] [place] [address] [facility] [address] [place] [address] [facility] [employer] Care Teams Water Plant Pump Operator Supervisor Relationship Specialty Start Date End Date Raymond Aly MD [address] [place] [id number] PCP - General Internal Medicine 10/10/20 Additional Source Comments The information contained in this document represents components of the legal health record. It is not the complete legal health record.[facility]
--- OUTSIDE RECORDS SUMMARY | 2025-03-15 12:36 | XMS_ITS | Patient Health Record ---
Author Organization [facility] Address [address] [place] [address] Care Team Providers Care Merchandise Executive Name Role Phone TOINO QUINTANA, JANE [facility] Primary Care Provider Yolanda AGUSTÍN Lagunas Unavailable [phone] Reason For Referral No Information Plan Of Treatment Pending Test Test Name Order Date MM Digital Screening Mammogram 3D 2023 Insurance Providers Payer Name Payer Address Payer Phone Subscriber Number Group Number Insured Name Patient Relationship to Insured Coverage Start Date Coverage End Date [facility] [address] [place] [address] [id number] YOKO HILLIARD Self - patient is the insured
== END 2025-03-15 11:42 | disposition home or self-care (01) ==
LOC: HO.PMC 11:00
PROVIDERS: PCP Internal Medicine; Visit Provider Anesthesiology
DX: G89.4 Chronic pain syndrome (principal); M46.1 Sacroiliitis, not elsewhere classified; M25.552 Pain in left hip; M53.3 Sacrococcygeal disorders, not elsewhere classified
CPT/HCPCS: 99213

== ENCOUNTER → 2025-03-15 10:59 | Outpatient (BNVA) | payer OTHER, SELFPAY | PROVIDERS: PCP Internal Medicine; Visit Provider Anesthesiology | DX: G89.4 Chronic pain syndrome (principal); M46.1 Sacroiliitis, not elsewhere classified; M25.552 Pain in left hip; M53.3 Sacrococcygeal disorders, not elsewhere classified | CPT/HCPCS: 99212 ==

== ENCOUNTER 2025-04-12 10:14 | Outpatient (AMB) | payer OTHER, SELFPAY ==
--- NOTE | 2025-04-12 10:19 | MHC.OFFVIS ---
Vital Signs 04/12/25 10:20 Weight 113 lb BP 154/80 H Position Sitting Respiration 18 Pulse 87 Pulse Source Pulse Oximeter Pulse Oximetry (%) 99 Oxygen Delivery Method Room Air Intake Visit Reasons: PILL COUNT Intake Note: pt states she last took her oxycodone acetaminophen at 6p yesterday 04/11/25. Lyndsey says she should have 46 pills she presented with 55 Allergies aspirin Allergy (Verified 04/12/25 10:19) swelling,rash Sulfa (Sulfonamide Antibiotics) Allergy (Verified 04/12/25 10:19) oral swelling tetracycline Allergy (Verified 04/12/25 10:19) severe vomiting HPI Comments Details: Essence is in for the follow-up and pain medication pill count. In the past we discussed possibility of the peripheral nerve stimulation of the sacroiliac joint innervation again today. She got new primary care physician. This primary care physician we will refer her to psychologist to obtain psychological evaluation. Her pill count is correct today she presented herself with 55 pills in her possession she supposed to have only 46 pills in her possession. This demonstrates responsible attitude to opioid medications. For years she was complaining on diarrhea and opioid medications were helping her with the frequent BMs. Now she complains on constipation she is unable to do bowel movement every day, she reports that she is likely when it happens once a week. I recommended her to try diet modification, however the patient will be considered for Movantik prescription next time if diet modification will not help. She tried OTC Colace and it was minimally helpful but she is careful not to take it every day. She started physical therapy she had an evaluation there only. She will continue with physical therapy. She also requested me to prescribe her cyclobenzaprine I will give her prescription of cyclobenzaprine with 8 refills. Prior: On diagnostic sacroiliac joint injection she reported 100% pain relief for 2 days with increased daily functioning, better mobility, sleep and social interactions. Patient reports after procedure she was able to complete all chores in her home and clean her house without significant discomfort in her right lower back, buttock and lateral hip. Patient reports no pain during those 2 days with sitting or driving. Past Procedures: 10/20/22: Right Diagnostic SIJ injection-100% pain relief for 2 days. Prior: On the MRI of the cervical spine there is not much of a significant changes. On the MRI of the lumbar spine at L4-5 level there is left shifted disc bulge with clumping of the nerves especially exiting L5. On physical exam some symptoms of sacroiliac joint pathology on the right as well as potential piriformis pathology on the right. SI joint fusion was offered to the patient if she will stop smoking. Unfortunately she continues to smoke. Her PHQ score is equal to 4. Her opioid risk addiction score is equal to 7. 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 Fibromyalgia Sacroiliitis Surgical History History of lumpectomy of right breast History of nasal surgery H/O tubal ligation Social History Alcohol intake: never Tobacco use type: Cigarette Cigarettes Per Day: 20 Review of Systems Const All systems reviewed & are unremarkable except as noted in HPI and below ENT Reports Normal hearing present Neuro Reports Normal hearing present and Denies confusion Psych Denies confusion Physical Exam Vital Signs: Last Vital Signs Pulse 87 04/12/25 10:20 Resp 18 04/12/25 10:20 BP 154/80 H 04/12/25 10:20 Pulse Ox 99 04/12/25 10:20 Oxygen Delivery Method Room Air 04/12/25 10:20 Const General: cooperative, alert and awake; No confusion Orientation/consciousness: patient oriented x3 and No confusion Resp Effort & Inspection: able to speak in complete sentences, no audible wheezes and no cough Back/Spine/Pelvis Other: Positive Stinchfield, positive Steve, positive pelvic compression test. On the right. Neuro General: patient oriented x3 and No confusion Cranial nerves: Yes Normal hearing present Cognition (Neuro): normal cognition Psych Mental Status: mental status grossly normal Speech and movement: Clear speech present Affect: normal affect Attitude: cooperative Thought process: Normal thought process present Thought content: Normal thought content present and No Depressive thoughts present Insight: Good insight present (Psych) Judgement: Good judgement present (Psych) Assessment & Plan Assessment & Plan (1) Chronic pain syndrome: Code(s): G89.4 - Chronic pain syndrome Category: Medical (2) Sacroiliitis: Code(s): M46.1 - Sacroiliitis, not elsewhere classified Category: Medical (3) Acute pain of left hip: Code(s): M25.552 - Pain in left hip Category: Medical (4) Sacroiliac joint dysfunction: Code(s): M53.3 - Sacrococcygeal disorders, not elsewhere classified Category: Medical Plan In the past we discussed possibility of treating her pain with cure on X/freedom PNS and the patient can not afford psychological evaluation with [employer] [facility]. Her insurance now was changed and her primary care physician is also new. She stated that the primary care physician will refer her to psychologist. Her pill count is correct today she presents with excess of medication. See count as above. I will prescribe her opioids today due on 05/05/2025. She also requested me to prescribe herself cyclobenzaprine. I will do prescription with 8 if rales. See as below. She reports constipation and we agreed to try diet modification. She tried Colace but she is careful not to take it every day. I will see her next time if those measures will not help her constipation I will preauthorize her for Movantik. Last naloxone prescription is 08/29/2024. She continues home exercise program. Medications: New cyclobenzaprine 7.5 mg PO TID PRN 90 tabs 8RF muscle spasm 30 days Refilled oxycodone-acetaminophen 5-325 mg (Percocet) Partial Fill upon patient request. 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 Coding Level of Care Code Est Pt Level 4 (98589) Diagnoses Chronic pain syndrome G89.4 Sacroiliitis M46.1 Acute pain of left hip M25.552 Sacroiliac joint dysfunction M53.3
[2025-04-12 10:20] VITALS: BP 154/80; PULSE 87; RESP 18; O2SAT 99
--- OUTSIDE RECORDS SUMMARY | 2025-04-12 12:15 | XMS_ITS | Clinical Summary ---
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 Fibromyalgia 10/30/2020 Assessment & Plan [...] of Preventive and Behavioral Medicine of [facility]. Research coordinator: Gabby Tvoar at [phone]. When asked how she would spend saved [...] Division of Preventive and Behavioral Medicine of [facility]. Research coordinator: Gabby Tovar at [phone]. She plans to quit within the next [...] Division of Preventive and Behavioral Medicine of [facility]. Research coordinator: Gabby Tovar at [phone]. Family History Medical History Relation Comments Asthma [...] HEPATITIS C SCREENING 1980 HIV ONE-TIME SCREENING (18-65 YEARS) 1980 PAP SMEAR 1983 MAMMOGRAM 2002 COLOGUARD 2007 COLONOSCOPY 2007 COLORECTAL CANCER SCREENING 2007 FIT TEST 2007 FOBT 2007 SIGMOIDOSCOPY 2007 VIRTUAL COLONOSCOPY 2007 ZOSTER VACCINES (2 of 2) 04/20/2018 02/23/2018 PNEUMOCOCCAL VACCINES (50+ years) (2 of 2 - PCV) 02/23/2019 02/23/2018 Adult Td,Tdap Booster 10/13/2021 10/14/2011 INFLUENZA VACCINE (#1) 2025 , 03/03/2020, 03/19/2019, Additional history exists COVID-19 VACCINE ( - 2024- season) 2025 08/15/2021, 12/12/2020, 11/21/2020 RSV VACCINE (1 - [...] topic Medical Devices Not on file Insurance [employer] [address] [place], [place] [address] [facility] [place] [place] [address] [place] [address] [place] [address]Vasona NetworksUNIVERSITY HOSPITALS SAMAR[facility] MCO BioGreen TeckLOG[facility] Data ExpeditionUNIVERSITY HOSPITALS SAMAR[facility] [address] [place] [address]Vasona NetworksUNIVERSITY HOSPITALS SAMAR[facility]ENTER MCO PlayEarthMATHER HOSPITALO PlayEarthUNIVERSITY [facility]ITALS [facility] MCO Care Teams Opinion Polls Survey Worker Relationship Specialty Start Date End Date Raymond Aly MD [address] [place] [id number] PCP - General Internal Medicine 10/10/20 Additional Source Comments The information contained in this document represents components of the legal health record. It is not the complete legal health record.[facility]
== END 2025-04-12 10:47 | disposition home or self-care (01) ==
LOC: HO.PMC 10:15
PROVIDERS: PCP Internal Medicine; Visit Provider Anesthesiology
DX: G89.4 Chronic pain syndrome (principal); M46.1 Sacroiliitis, not elsewhere classified; M25.552 Pain in left hip; M53.3 Sacrococcygeal disorders, not elsewhere classified
CPT/HCPCS: 99214

== ENCOUNTER → 2025-04-12 10:14 | Outpatient (BNVA) | payer OTHER, SELFPAY | PROVIDERS: PCP Internal Medicine; Visit Provider Anesthesiology | DX: G89.4 Chronic pain syndrome (principal); M46.1 Sacroiliitis, not elsewhere classified; M53.3 Sacrococcygeal disorders, not elsewhere classified; M79.7 Fibromyalgia; M25.552 Pain in left hip; Z51.81 Encounter for therapeutic drug level monitoring; Z79.891 Long term (current) use of opiate analgesic | CPT/HCPCS: 99212 ==

== ENCOUNTER 2025-05-10 13:22 | Outpatient (AMB) | payer OTHER, SELFPAY ==
[2025-05-10 13:59] VITALS: BP 132/73; PULSE 79; RESP 16; O2SAT 96; BMI 19.3
--- NOTE | 2025-05-10 13:59 | A.OFFVIS_ITS ---
Vital Signs 05/10/25 13:59 Height 5 ft 3 in Weight 109 lb BMI 19.3 BP 132/73 Blood Pressure Location Rt brachial Position Sitting Respiration 16 Pulse 79 Pulse Source Pulse Oximeter Pulse Oximetry (%) 96 Oxygen Delivery Method Room Air Intake Visit Reasons: PILL COUNT Intake Note: Patient here for pill count of Oxycodone. per direction patient should have 50 pills patient presented 58 pills. Last took 1:30pm Public Health Registrar Required: No Accompanied by: Self / Same As Patient Allergies aspirin Allergy (Verified 05/10/25 14:05) swelling,rash Sulfa (Sulfonamide Antibiotics) Allergy (Verified 05/10/25 14:05) oral swelling tetracycline Allergy (Verified 05/10/25 14:05) severe vomiting HPI Comments Details: Essence is in for the follow-up and pain medication pill count. In the past we discussed possibility of the peripheral nerve stimulation of the sacroiliac joint innervation again today. She got new primary care physician. This primary care physician we will refer her to psychologist to obtain psychological evaluation. Her pill count is correct today she presented herself with 58 pills in her possession she supposed to have only 50 pills in her possession. This demonstrates responsible attitude to opioid medications. She reports today that her constipation got resolved with 1 dose of Colace and diet modification including beets and cauliflowers. I will prescribe her a new batch of the medication to be due on 06/05/2025. She also requested me to prescribe her cyclobenzaprine I will give her prescription of cyclobenzaprine with 8 refills. Prior: On diagnostic sacroiliac joint injection she reported 100% pain relief for 2 days with increased daily functioning, better mobility, sleep and social interactions. Patient reports after procedure she was able to complete all chores in her home and clean her house without significant discomfort in her right lower back, buttock and lateral hip. Patient reports no pain during those 2 days with sitting or driving. Past Procedures: 10/20/22: Right Diagnostic SIJ injection-100% pain relief for 2 days. Prior: On the MRI of the cervical spine there is not much of a significant changes. On the MRI of the lumbar spine at L4-5 level there is left shifted disc bulge with clumping of the nerves especially exiting L5. On physical exam some symptoms of sacroiliac joint pathology on the right as well as potential piriformis pathology on the right. SI joint fusion was offered to the patient if she will stop smoking. Unfortunately she continues to smoke. Her PHQ score is equal to 4. Her opioid risk addiction score is equal to 7. Her total risk is equal to 11.mild risk for opioid addiction [facility] Medical History Environmental and seasonal allergies Allergy to mold Neuroma of foot Chronic pain syndrome [facility] (current) use of opiate analgesic Fibromyalgia Sacroiliitis Surgical History History of lumpectomy of right breast History of nasal surgery H/O tubal ligation Social History Alcohol intake: never Tobacco use type: Cigarette Cigarettes Per Day: 20 Review of Systems Const All systems reviewed & are unremarkable except as noted in HPI and below ENT Reports Normal hearing present Neuro Reports Normal hearing present and Denies confusion Psych Denies confusion Physical Exam Vital Signs: Last Vital Signs Pulse 79 05/10/25 13:59 Resp 16 05/10/25 13:59 BP 132/73 05/10/25 13:59 Pulse Ox 96 05/10/25 13:59 Oxygen Delivery Method Room Air 05/10/25 13:59 BMI result Body Mass Index 19.3 Const General: cooperative, alert and awake; No confusion Orientation/consciousness: patient oriented x3 and No confusion Resp Effort & Inspection: able to speak in complete sentences, no audible wheezes and no cough Back/Spine/Pelvis Other: Positive Stinchfield, positive Steve, positive pelvic compression test. On the right. Neuro General: patient oriented x3 and No confusion Cranial nerves: Yes Normal hearing present Cognition (Neuro): normal cognition Psych Mental Status: mental status grossly normal Speech and movement: Clear speech present Affect: normal affect Attitude: cooperative Thought process: Normal thought process present Thought content: Normal thought content present and No Depressive thoughts present Insight: Good insight present (Psych) Judgement: Good judgement present (Psych) Assessment & Plan Assessment & Plan (1) Chronic pain syndrome: Code(s): G89.4 - Chronic pain syndrome Category: Medical (2) Sacroiliitis: Code(s): M46.1 - Sacroiliitis, not elsewhere classified Category: Medical (3) Acute pain of left hip: Code(s): M25.552 - Pain in left hip Category: Medical (4) Sacroiliac joint dysfunction: Code(s): M53.3 - Sacrococcygeal disorders, not elsewhere classified Category: Medical Plan In the past we discussed possibility of treating her pain with cure on X/freedom PNS and the patient can not afford psychological evaluation with [employer] point. Her insurance now was changed and her primary care physician is also new. She stated that the primary care physician will refer her to psychologist. Her pill count is correct today she presents with excess of medication. See count as above. I will prescribe her opioids today due on 06/05/2025. She will continue cyclobenzaprine. Diet modification help. No need for Movantik. Last naloxone prescription is 08/29/2024. She continues home exercise program. Medications: Refilled oxycodone-acetaminophen 5-325 mg (Percocet) Partial Fill upon patient request. 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
--- OUTSIDE RECORDS SUMMARY | 2025-05-10 16:46 | XMS_ITS | Clinical Summary ---
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 Fibromyalgia 10/30/2020 Assessment & Plan [...] of Preventive and Behavioral Medicine of [facility]. Research coordinator: Gabby Tovar at [phone]. When asked how she would spend saved [...] Division of Preventive and Behavioral Medicine of [facility]. Research coordinator: Gabby Tovar at [phone]. She plans to quit within the next [...] Division of Preventive and Behavioral Medicine of [facility]. Research coordinator: Gabby Tovar at [phone]. Family History Medical History Relation Comments Asthma [...] topic Medical Devices Not on file Insurance [employer] [address] [place], [place] [address] [facility] [place] [place] [address] [place] [address] [place] [address]FameCastCHILLICOTHE HOS[facility]ITAL MCO InsighteraSALT LAKE REGIONAL MEDICAL [facility]ENTER Data MarketplaceCHILLICOTHE HOSPITAL [address] [place] [address]FameCastCHILLICOTHE HOSPITAL MCO OraHealthPECONIC BAY MEDICAL CENTERO OraHealthCHILLICOTHE HOSPITAL MCO Care Teams Director Of Email Marketing Relationship Specialty Start Date End Date Raymond Aly MD [address] [place] [id number] PCP - General Internal Medicine 10/10/20 Additional Source Comments The information contained in this document represents components of the legal health record. It is not the complete legal health record.[facility]
--- OUTSIDE RECORDS SUMMARY | 2025-05-10 16:46 | XMS_ITS | Patient Health Record ---
Author Organization [facility] Address [address] [place] [address] Care Team Providers Care Construction Administrative Assistant Name Role Phone TONIO QUINTANA, [facility] Primary Care Provider Yolanda AGUSTÍN Lagunas Unavailable [phone] Reason For Referral No Information Plan Of Treatment Pending Test Test Name Order Date MM Digital Screening Mammogram 3D 2023 Insurance Providers Payer Name Payer Address Payer Phone Subscriber Number Group Number Insured Name Patient Relationship to Insured Coverage Start Date Coverage End Date [facility] [address] [place] [id number] [phone] [id number] YOKO HILLIARD Self - patient is the insured
== END 2025-05-10 14:09 | disposition home or self-care (01) ==
LOC: HO.PMC 13:23
PROVIDERS: PCP Internal Medicine; Visit Provider Anesthesiology
DX: G89.4 Chronic pain syndrome (principal); M46.1 Sacroiliitis, not elsewhere classified; M25.552 Pain in left hip; M53.3 Sacrococcygeal disorders, not elsewhere classified
CPT/HCPCS: 99213

== ENCOUNTER → 2025-05-10 13:22 | Outpatient (BNVA) | payer OTHER, SELFPAY | PROVIDERS: PCP Internal Medicine; Visit Provider Anesthesiology | DX: G89.4 Chronic pain syndrome (principal); M25.552 Pain in left hip; M46.1 Sacroiliitis, not elsewhere classified; M53.3 Sacrococcygeal disorders, not elsewhere classified; M79.7 Fibromyalgia; Z51.81 Encounter for therapeutic drug level monitoring; Z79.891 Long term (current) use of opiate analgesic | CPT/HCPCS: 99212 ==

== ENCOUNTER 2025-06-07 13:18 | Outpatient (AMB) | payer OTHER, SELFPAY ==
--- NOTE | 2025-06-07 13:19 | MHC.OFFVIS ---
Vital Signs 06/07/25 13:31 Height 5 ft 3 in Weight 105 lb BMI 18.6 BP 135/79 Blood Pressure Location Lt brachial Position Sitting Respiration 16 Pulse 92 Pulse Source Pulse Oximeter Pulse Oximetry (%) 95 Oxygen Delivery Method Room Air Intake Visit Reasons: PILL COUNT Intake Note: Patient here for pill count of Oxycodone. per direction patient should have 54 pills. Patient presented 59 pills. Last took 6am Sales Promotion Representative Required: No Accompanied by: Self / Same As Patient Allergies aspirin Allergy (Verified 06/07/25 13:41) swelling,rash Sulfa (Sulfonamide Antibiotics) Allergy (Verified 06/07/25 13:41) oral swelling tetracycline Allergy (Verified 06/07/25 13:41) severe vomiting HPI Comments Details: Essence is in for the follow-up and pain medication pill count. Her pill count is correct today she presented herself with 59pills in her possession she supposed to have 54 pills in her possession. This demonstrates responsible attitude to opioid medications. minimal constipation side effects on opioids she denies any other side effects. The patient is waiting for the appointment with primary care physician who supposed to refer her for the psychologist or psychiatrist with a goal to evaluate her in preparation for PNS sacroiliac joint innervation. Prior: On diagnostic sacroiliac joint injection she reported 100% pain relief for 2 days with increased daily functioning, better mobility, sleep and social interactions. Patient reports after procedure she was able to complete all chores in her home and clean her house without significant discomfort in her right lower back, buttock and lateral hip. Patient reports no pain during those 2 days with sitting or driving. Past Procedures: 10/20/22: Right Diagnostic SIJ injection-100% pain relief for 2 days. Prior: On the MRI of the cervical spine there is not much of a significant changes. On the MRI of the lumbar spine at L4-5 level there is left shifted disc bulge with clumping of the nerves especially exiting L5. On physical exam some symptoms of sacroiliac joint pathology on the right as well as potential piriformis pathology on the right. SI joint fusion was offered to the patient if she will stop smoking. Unfortunately she continues to smoke. Her PHQ score is equal to 4. Her opioid risk addiction score is equal to 7. 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 Fibromyalgia Sacroiliitis Surgical History History of lumpectomy of right breast History of nasal surgery H/O tubal ligation Social History Alcohol intake: never Tobacco use type: Cigarette Cigarettes Per Day: 20 Review of Systems Const All systems reviewed & are unremarkable except as noted in HPI and below ENT Reports Normal hearing present Neuro Reports Normal hearing present and Denies confusion Psych Denies confusion Physical Exam Vital Signs: Last Vital Signs Pulse 92 06/07/25 13:31 Resp 16 06/07/25 13:31 BP 135/79 06/07/25 13:31 Pulse Ox 95 06/07/25 13:31 Oxygen Delivery Method Room Air 06/07/25 13:31 BMI result Body Mass Index 18.6 Const General: cooperative, alert and awake; No confusion Orientation/consciousness: patient oriented x3 and No confusion Resp Effort & Inspection: able to speak in complete sentences, no audible wheezes and no cough Back/Spine/Pelvis Other: Positive Stinchfield, positive Steve, positive pelvic compression test. On the right. Neuro General: patient oriented x3 and No confusion Cranial nerves: Yes Normal hearing present Cognition (Neuro): normal cognition Psych Mental Status: mental status grossly normal Speech and movement: Clear speech present Affect: normal affect Attitude: cooperative Thought process: Normal thought process present Thought content: Normal thought content present and No Depressive thoughts present Insight: Good insight present (Psych) Judgement: Good judgement present (Psych) Assessment & Plan Assessment & Plan (1) Chronic pain syndrome: Code(s): G89.4 - Chronic pain syndrome Category: Medical (2) Sacroiliitis: Code(s): M46.1 - Sacroiliitis, not elsewhere classified Category: Medical (3) Acute pain of left hip: Code(s): M25.552 - Pain in left hip Category: Medical (4) Sacroiliac joint dysfunction: Code(s): M53.3 - Sacrococcygeal disorders, not elsewhere classified Category: Medical Plan In the past we discussed possibility of treating her pain with cure on X/freedom PNS and the patient can not afford psychological evaluation with [employer]. Her insurance now was changed and her primary care physician is also new. She stated that the primary care physician will refer her to psychologist. She is still waiting for the appointment with PCP. Her pill count is correct today she presents with excess of medication. See count as above. I will prescribe her opioids today due on 07/05/2025. She will continue cyclobenzaprine. Diet modification helped Last naloxone prescription is 08/29/2024. She continues home exercise program. Medications: Refilled oxycodone-acetaminophen 5-325 mg (Percocet) Partial Fill upon patient request. 1 tab PO BID PRN 60 tabs 0RF pain (scale score 7-10) 30 days G89.4 - Chronic pain syndrome, Z79.891 - [facility] (current) use of opiate analgesic Coding Level of Care Code Est Pt Level 3 (66985) Diagnoses Chronic pain syndrome G89.4 Sacroiliitis M46.1 Acute pain of left hip M25.552 Sacroiliac joint dysfunction M53.3
[2025-06-07 13:31] VITALS: BP 135/79; PULSE 92; RESP 16; O2SAT 95; BMI 18.6
--- OUTSIDE RECORDS SUMMARY | 2025-06-07 16:36 | XMS_ITS | Patient Health Record ---
Author Organization [facility] Address [address] [place] [address] Care Team Providers Care Calibration Checker Name Role Phone TONIO QUINTANA, [facility] Primary Care Provider Yolanda AGUSTÍN Lagunas Unavailable [phone] Reason For Referral No Information Plan Of Treatment Pending Test Test Name Order Date MM Digital Screening Mammogram 3D 2023 Insurance Providers Payer Name Payer Address Payer Phone Subscriber Number Group Number Insured Name Patient Relationship to Insured Coverage Start Date Coverage End Date [facility] [address] [place] [address] [id number] YOKO HILLIARD Self - patient is the insured
--- OUTSIDE RECORDS SUMMARY | 2025-06-07 16:36 | XMS_ITS | Clinical Summary ---
Author Organization [facility] Address [address] [place] [id number] Phone Care Team Providers Care Clinical Data Programmer Name Role Phone Raymond Aly MD Primary Care Provider +1- [phone] Allergies Active Allergy Reactions Criticality Noted Date [...] Continue close follow-up and desensitization with treating spa consultant as scheduled. Fibromyalgia 10/30/2020 Assessment & Plan [...] of Preventive and Behavioral Medicine of [facility]. Research coordinator: Gabby Tovar at [phone]. When asked how she would spend saved [...] Division of Preventive and Behavioral Medicine of [facility]. Research coordinator: Gabby Toavr at [phone]. She plans to quit within the next [...] Division of Preventive and Behavioral Medicine of [facility]. Research coordinator: Gabby Tovar at [phone]. Family History Medical History Relation Comments Asthma [...] on patient's age to complete this topic IPV VACCINES Aged Out No longer eligi ble based on patient's age to complete this topic MENINGOCOCCAL VACCINES (ACWY) Aged Out No longer eligible based on patient's age to complete this topic MENINGOCOCCAL VACCINES (B) Aged Out N o longer eligible based on patient's age to complete this topic Medical Devices Not on file Insurance [employer] OnformonicsHEALTH MCO OnformonicsHEALTH MCO OnformonicsELLIS ISLAND IMMIG[facility]OS[facility]ITALO OnformonicsELL[facility]ITALO OnformonicsE[facility] [address] [place], [place] [address]B[employer]zy [facility] [employer] O Care Teams Clinical Data Programmer Relationship Specialty Start Date End Date Raymond Aly MD [address] [place] [address] PCP - General Internal Medicine 10/10/20 Additional Source Comments The information contained in this document represents components of the legal health record. It is not the complete legal health record.[facility]
== END 2025-06-07 13:51 | disposition home or self-care (01) ==
LOC: HO.PMC 13:18
PROVIDERS: PCP Internal Medicine; Visit Provider Anesthesiology
DX: G89.4 Chronic pain syndrome (principal); M46.1 Sacroiliitis, not elsewhere classified; M25.552 Pain in left hip; M53.3 Sacrococcygeal disorders, not elsewhere classified; Z79.891 Long term (current) use of opiate analgesic
CPT/HCPCS: 99213

== ENCOUNTER → 2025-06-07 13:18 | Outpatient (BNVA) | payer OTHER, SELFPAY | PROVIDERS: PCP Internal Medicine; Visit Provider Anesthesiology | DX: G89.4 Chronic pain syndrome (principal); M46.1 Sacroiliitis, not elsewhere classified; M25.552 Pain in left hip; M53.3 Sacrococcygeal disorders, not elsewhere classified; Z79.891 Long term (current) use of opiate analgesic | CPT/HCPCS: 99212 ==

== ENCOUNTER 2025-07-12 13:13 | Outpatient (AMB) | payer OTHER, SELFPAY ==
--- NOTE | 2025-07-12 13:40 | MHC.OFFVIS ---
Vital Signs 07/12/25 13:46 Height 5 ft 3 in Weight 102 lb BMI 18.1 BP 126/75 Blood Pressure Location Rt brachial Position Sitting Respiration 16 Pulse 108 H Pulse Source Pulse Oximeter Pulse Oximetry (%) 97 Oxygen Delivery Method Room Air Intake Visit Reasons: PILL COUNT Intake Note: Patient here for a pill count of Oxycodone-acetaminophen per directions patient should have 46 pills. Patient presented 53 pills. Last took 9am E Business Manager Required: No Accompanied by: Self / Same As Patient Allergies aspirin Allergy (Verified 07/12/25 13:45) swelling,rash Sulfa (Sulfonamide Antibiotics) Allergy (Verified 07/12/25 13:45) oral swelling tetracycline Allergy (Verified 07/12/25 13:45) severe vomiting HPI Comments Details: Essence is in for the follow-up and pain medication pill count. Her pill count is correct today she presented today with 53 pills in her possession. She supposed to have 46 pills in her possession. This demonstrates responsible attitude of opioid medications. She reports pain level 4/10 today. Reports better mobility on opioid medications, better activities of daily living, better social interactions. Mass pat is checked and it is correct. There is no evidence of abuse diversion or misuse of the opioid medications. She received the last prescription on 07/06/2025. Her new prescription will be issued to be filled on 08/05/2025. Prior: On diagnostic sacroiliac joint injection she reported 100% pain relief for 2 days with increased daily functioning, better mobility, sleep and social interactions. Patient reports after procedure she was able to complete all chores in her home and clean her house without significant discomfort in her right lower back, buttock and lateral hip. Patient reports no pain during those 2 days with sitting or driving. Past Procedures: 10/20/22: Right Diagnostic SIJ injection-100% pain relief for 2 days. Prior: On the MRI of the cervical spine there is not much of a significant changes. On the MRI of the lumbar spine at L4-5 level there is left shifted disc bulge with clumping of the nerves especially exiting L5. On physical exam some symptoms of sacroiliac joint pathology on the right as well as potential piriformis pathology on the right. SI joint fusion was offered to the patient if she will stop smoking. Unfortunately she continues to smoke. Her PHQ score is equal to 4. Her opioid risk addiction score is equal to 7. 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 Fibromyalgia Sacroiliitis Surgical History History of lumpectomy of right breast History of nasal surgery H/O tubal ligation Social History Alcohol intake: never Tobacco use type: Cigarette Cigarettes Per Day: 20 Review of Systems Const All systems reviewed & are unremarkable except as noted in HPI and below ENT Reports Normal hearing present Neuro Reports Normal hearing present and Denies confusion Psych Denies confusion Physical Exam Vital Signs: Last Vital Signs Pulse 108 H 07/12/25 13:46 Resp 16 07/12/25 13:46 BP 126/75 07/12/25 13:46 Pulse Ox 97 07/12/25 13:46 Oxygen Delivery Method Room Air 07/12/25 13:46 BMI result Body Mass Index 18.1 Const General: cooperative, alert and awake; No confusion Orientation/consciousness: patient oriented x3 and No confusion Resp Effort & Inspection: able to speak in complete sentences, no audible wheezes and no cough Back/Spine/Pelvis Other: Positive Stinchfield, positive Steve, positive pelvic compression test. On the right. Neuro General: patient oriented x3 and No confusion Cranial nerves: Yes Normal hearing present Cognition (Neuro): normal cognition Psych Mental Status: mental status grossly normal Speech and movement: Clear speech present Affect: normal affect Attitude: cooperative Thought process: Normal thought process present Thought content: Normal thought content present and No Depressive thoughts present Insight: Good insight present (Psych) Judgement: Good judgement present (Psych) Assessment & Plan Assessment & Plan (1) Chronic pain syndrome: Code(s): G89.4 - Chronic pain syndrome Category: Medical (2) Sacroiliitis: Code(s): M46.1 - Sacroiliitis, not elsewhere classified Category: Medical (3) Acute pain of left hip: Code(s): M25.552 - Pain in left hip Category: Medical (4) Sacroiliac joint dysfunction: Code(s): M53.3 - Sacrococcygeal disorders, not elsewhere classified Category: Medical Plan In the past we discussed possibility of treating her pain with cure on X/freedom PNS and the patient can not afford psychological evaluation with [facility]. Her insurance now was changed and her primary care physician is also new. She stated that the primary care physician will refer her to psychologist. She is still waiting for the appointment with PCP. Her pill count is correct today she presents with excess of medication. See count as above. I will prescribe her opioids today due on 08/05/2025 Diet modification helped with constipation. Last naloxone prescription is 08/29/2024. She continues home exercise program. Medications: Refilled oxycodone-acetaminophen 5-325 mg (Percocet) Partial Fill upon patient request. 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
[2025-07-12 13:46] VITALS: BP 126/75; PULSE 108; RESP 16; O2SAT 97; BMI 18.1
--- OUTSIDE RECORDS SUMMARY | 2025-07-12 17:19 | XMS_ITS | Patient Health Record ---
Author Organization [facility] Address [address] [place] [address] Care Team Providers Care Medical Transport Specialist Name Role Phone TONIO QUINTANA, [facility] Primary Care Provider Yolanda AGUSTÍN Lagunas Unavailable [phone] Reason For Referral No Information Plan Of Treatment Pending Test Test Name Order Date MM Digital Screening Mammogram 3D 2023 Insurance Providers Payer Name Payer Address Payer Phone Subscriber Number Group Number Insured Name Patient Relationship to Insured Coverage Start Date Coverage End Date [facility] [address] [place] [place] [id number] [phone] [id number] YOKO HILLIARD Self - patient is the insured
--- OUTSIDE RECORDS SUMMARY | 2025-07-12 17:19 | XMS_ITS | Clinical Summary ---
Author Organization [facility] Address [address] [place], [place] [id number] Phone Care Team Providers Care Hvac Project Manager Name Role Phone Raymond Aly MD Primary Care Provider [phone] Allergies Active Allergy Reactions Criticality Noted Date [...] Continue close follow-up and desensitization with treating rf test technician as scheduled. Fibromyalgia 10/30/2020 Assessment & Plan [...] of Preventive and Behavioral Medicine of [facility] [employer]. Research coordinator: Gabby Tovar at [phone]. When asked how she would spend saved [...] Division of Preventive and Behavioral Medicine of [facility]. Research coordinator: Gabby Tovar at [phone]. She plans to quit within the next [...] Division of Preventive and Behavioral Medicine of [facility]. Research coordinator: Gabby Tovar at [phone]. Family History Medical History Relation Comments Asthma [...] topic Medical Devices Not on file Insurance [employer] [address] [place], [place] [address]ZeeWhere [facility] [address] [place], [place] [address] [place] [address] [place] [place] [address]PositiveIDAULTMAN [facility] Nflight TechnologyFILLMORE COMM[facility]ITY [facility] OodriveAULTMAN [facility] [address] [place] [address]PositiveIDAULT[facility] M[facility] TapPressST. [facility]O TapPressAULTMAN [facility] Care Teams Hvac Project Manager Relationship Specialty Start Date End Date Raymond Aly MD [address] [place] [id number] PCP - General Internal Medicine 10/10/20 Additional Source Comments The information contained in this document represents components of the legal health record. It is not the complete legal health record.[facility]
== END 2025-07-12 13:55 | disposition home or self-care (01) ==
LOC: HO.PMC 13:13
PROVIDERS: PCP Internal Medicine; Visit Provider Anesthesiology
DX: G89.4 Chronic pain syndrome (principal); M46.1 Sacroiliitis, not elsewhere classified; M25.552 Pain in left hip; M53.3 Sacrococcygeal disorders, not elsewhere classified
CPT/HCPCS: 99213

== ENCOUNTER → 2025-07-12 13:13 | Outpatient (BNVA) | payer OTHER, SELFPAY | PROVIDERS: PCP Internal Medicine; Visit Provider Anesthesiology | DX: M46.1 Sacroiliitis, not elsewhere classified (principal); M53.3 Sacrococcygeal disorders, not elsewhere classified; M79.7 Fibromyalgia; G89.4 Chronic pain syndrome; M25.552 Pain in left hip; Z51.81 Encounter for therapeutic drug level monitoring; Z79.891 Long term (current) use of opiate analgesic | CPT/HCPCS: 99212 ==